=== PATIENT | female | born 1985 | race Caucasian/White ===

== ENCOUNTER → 2016-12-13 | Outpatient (CLI) | payer OTHER ==
[~2016-12-13] MED LIST: ACET325T14 PO; AMOX1TAB64 PO; BUTA1CAP57 PO; DEXA4TAB PO; DOCU-30 PO; DULO60CA7 PO; FAMO20TA37 PO; IBUP-1222 PO; INDO25CA PO; MEMA10TA PO; OXYC-302 PO; OXYC1TAB7 PO; OXYC1TAB9 PO; PARO10TA24 PO; PRED20TA PO; PRED5TAB PO; SERT50TA; TEMA15CA6 PO
== END | disposition home or self-care (01) ==
LOC: LAB 16:32
PROVIDERS: ATTEND Internal Medicine Infectious Disease
DX: R70.0 Elevated erythrocyte sedimentation rate (principal)
CPT/HCPCS: 87324

== ENCOUNTER 2017-02-12 19:08 | Inpatient (IN) | payer OTHER ==
[~2017-02-12] VITALS: Ht 180.3 cm; Wt 63.5 kg
[2017-02-12 19:47] LABS: BLOOD UREA NITROGEN 8 mg/dL (7-18)
[2017-02-12] MEDS ORDERED: CEFTRIAXONE PMX 1GM/50ML 50 ML IVPB ONE (20:30)
[2017-02-12] MEDS ORDERED: HYDROmorphone 1 MG/ML, 1ML IVPush PRN (20:30)
[2017-02-12] MEDS ORDERED: ONDANSETRON 2MG/ML, 2ML IVPush ONE (20:30)
[2017-02-12] MEDS ORDERED: SODIUM CHLORIDE FLUSH 10ML SYR IVF ONE (20:30)
[2017-02-12] MEDS ORDERED: CEFTRIAXONE PMX 1GM/50ML 50 ML ONE (20:49)
[2017-02-12] MEDS ORDERED: ONDANSETRON 2MG/ML, 2ML ONE (20:50)
[2017-02-12] MEDS ORDERED: HYDROmorphone 1 MG/ML, 1ML ONE (20:50)
[2017-02-12] MEDS ORDERED: SODIUM CHLORIDE FLUSH 10ML SYR IVF PRN (21:00)
[2017-02-12] MEDS: HEPARIN 5,000 UNITS/ML, 1ML SQ SCH (21:30)
[2017-02-12] MEDS ORDERED: BISACODYL 10 MG SUPP PR PRN (21:30)
[2017-02-12] MEDS ORDERED: POLYETHYLENE GLYCOL 17 GM PACKET PO PRN (21:30)
[2017-02-12] MEDS ORDERED: CEFTRIAXONE PMX 1GM/50ML 50 ML IV SCH (21:30)
[2017-02-12] MEDS ORDERED: CEFTRIAXONE 2 GM in SODIUM CHLORIDE 0.9% 50 ML IV SCH (21:30)
[2017-02-12] MEDS ORDERED: ONDANSETRON 2MG/ML, 2ML IVPush PRN (21:30)
[2017-02-12] MEDS ORDERED: HYDROmorphone 2 MG/ML, 1ML IVPush PRN (21:30)
[2017-02-12] MEDS: BUTALB/APAP/CAFFEINE 50MG/325MG/40MG PO SCH (21:30)
[2017-02-12] MEDS ORDERED: ACETAMINOPHEN 325 MG TABLET PO PRN (21:30)
[2017-02-12 22:00] VITALS: BP 122/81
[2017-02-12] MEDS ORDERED: [UNRECOGNIZED DRUG - OTHER] NAS SCH (22:00)
[2017-02-12] MEDS: [UNRECOGNIZED DRUG - OTHER] NAS SCH (22:30)
[2017-02-12] MEDS: HYDROmorphone 2 MG/ML, 1ML IVPush PRN (23:25)
[2017-02-13] MEDS ORDERED: CEFTRIAXONE 2 GM in SODIUM CHLORIDE 0.9% 50 ML IV SCH
[2017-02-13] MEDS ORDERED: CEFTRIAXONE PMX 1GM/50ML 50 ML IV ONE
[2017-02-13] MEDS: TEMAZEPAM 15 MG CAPSULE PO PRN ×2 (00:27→22:57)
[2017-02-13] MEDS: METRONIDAZOLE PMX 500MG/100ML 100 ML IV SCH ×2 (00:27→08:42)
[2017-02-13] MEDS: SODIUM CHLORIDE FLUSH 3ML SYRINGE IVF SCH ×3 (00:28→20:57)
[2017-02-13] MEDS: FAMOTIDINE 20 MG TABLET PO SCH ×2 (00:29→20:44)
[2017-02-13] MEDS: methylPREDNISolone SOD SUCC 40 MG/ML IVPush SCH ×2 (00:29→05:34)
[2017-02-13] MEDS: BUTALB/APAP/CAFFEINE 50MG/325MG/40MG PO SCH ×6 (01:30→20:56)
[2017-02-13] MEDS: HEPARIN 5,000 UNITS/ML, 1ML SQ SCH (01:43)
[2017-02-13 01:54] VITALS: BP 115/64
[2017-02-13] MEDS: HYDROmorphone 2 MG/ML, 1ML IVPush PRN ×8 (02:44→21:55)
[2017-02-13 04:54] LABS: ASPARTATE AMINO TRANSFERASE 10 U/L (15-37); BLOOD UREA NITROGEN 10 mg/dL (7-18)
[2017-02-13 08:36] VITALS: BP 95/54
[2017-02-13] MEDS: DULOXETINE 30 MG CAPSULE.DR PO SCH (08:41)
[2017-02-13] MEDS: SENNA/DOCUSATE TABLET PO SCH (08:42)
[2017-02-13] MEDS: [UNRECOGNIZED DRUG - OTHER] NAS SCH ×2 (09:00→20:56)
[2017-02-13] MEDS: KETOROLAC 30 MG/1 ML IVPush SCH ×3 (09:58→21:56)
[2017-02-13] MEDS: DEXAMETHASONE 4 MG/ML, 1ML IVPush SCH ×3 (10:15→21:56)
[2017-02-13] MEDS: SODIUM CHLORIDE 0.9% 1,000 ML IV SCH ×2 (10:15→15:59)
[2017-02-13] MEDS: ENOXAPARIN 40 MG/0.4 ML SQ SCH ×3 (11:52→16:17)
[2017-02-13 13:42] VITALS: BP 93/44
[2017-02-13] MEDS: ONDANSETRON 2MG/ML, 2ML IVPush PRN ×2 (15:21→20:44)
[2017-02-13] MEDS ORDERED: METOCLOPRAMIDE 5 MG/ML, 2ML IVPush PRN (15:30)
[2017-02-13] MEDS: DAPTOMYCIN 500 MG in SODIUM CHLORIDE 0.9% 100 ML IV SCH (15:59)
[2017-02-13] MEDS: OXYcodone/APAP 5/325MG TABLET PO PRN ×2 (16:17→20:44)
[2017-02-13] MEDS: MEMANTINE 10MG TABLET PO PRN (21:56)
[2017-02-13 22:04] VITALS: BP 108/64
[2017-02-14] MEDS: BUTALB/APAP/CAFFEINE 50MG/325MG/40MG PO SCH ×6 (00:51→21:30)
[2017-02-14] MEDS: HYDROmorphone 2 MG/ML, 1ML IVPush PRN ×6 (00:59→21:05)
[2017-02-14] MEDS: SODIUM CHLORIDE 0.9% 1,000 ML IV SCH ×3 (00:59→17:05)
[2017-02-14 01:45] VITALS: BP 108/67
[2017-02-14] MEDS: ONDANSETRON 2MG/ML, 2ML IVPush PRN ×4 (01:53→21:09)
[2017-02-14] MEDS: DEXAMETHASONE 4 MG/ML, 1ML IVPush SCH ×4 (04:04→22:07)
[2017-02-14] MEDS: KETOROLAC 30 MG/1 ML IVPush SCH ×4 (04:05→22:07)
[2017-02-14 04:42] LABS: BLOOD UREA NITROGEN 7 mg/dL (7-18)
[2017-02-14 04:45] LABS: ASPARTATE AMINO TRANSFERASE 4 U/L (15-37)
[2017-02-14 06:50] VITALS: BP 104/60
[2017-02-14] MEDS: OXYcodone/APAP 5/325MG TABLET PO PRN ×2 (08:36→13:32)
[2017-02-14] MEDS: [UNRECOGNIZED DRUG - OTHER] NAS SCH ×2 (09:00→21:00)
[2017-02-14] MEDS: SENNA/DOCUSATE TABLET PO SCH (09:14)
[2017-02-14] MEDS: DULOXETINE 30 MG CAPSULE.DR PO SCH (09:15)
[2017-02-14] MEDS: SODIUM CHLORIDE FLUSH 3ML SYRINGE IVF SCH ×2 (09:15→21:00)
[2017-02-14 14:29] VITALS: BP 111/71
[2017-02-14] MEDS: DAPTOMYCIN 500 MG in SODIUM CHLORIDE 0.9% 100 ML IV SCH (16:03)
[2017-02-14] MEDS: ENOXAPARIN 40 MG/0.4 ML SQ SCH (17:05)
[2017-02-14] MEDS ORDERED: LORazepam 2 MG/ML, 1ML IVPush ONE ×2 (18:00→18:30)
[2017-02-14] MEDS ORDERED: GADOBUTROL 7.5 MMOL/7.5 ML PFS ONE (18:34)
[2017-02-14 19:54] VITALS: BP 113/72
[2017-02-14] MEDS: FAMOTIDINE 20 MG TABLET PO SCH (21:11)
[2017-02-14] MEDS: TEMAZEPAM 15 MG CAPSULE PO PRN (22:07)
[2017-02-15 00:55] VITALS: BP 115/66
[2017-02-15] MEDS: HYDROmorphone 2 MG/ML, 1ML IVPush PRN ×8 (01:17→23:30)
[2017-02-15] MEDS: ONDANSETRON 2MG/ML, 2ML IVPush PRN ×4 (01:17→23:30)
[2017-02-15] MEDS: BUTALB/APAP/CAFFEINE 50MG/325MG/40MG PO SCH ×6 (01:30→21:30)
[2017-02-15] MEDS ORDERED: HYDROmorphone 1 MG/ML, 1ML ONE (04:43)
[2017-02-15] MEDS: DEXAMETHASONE 4 MG/ML, 1ML IVPush SCH ×3 (04:44→17:16)
[2017-02-15] MEDS: KETOROLAC 30 MG/1 ML IVPush SCH ×4 (04:44→23:30)
[2017-02-15] MEDS: SODIUM CHLORIDE 0.9% 1,000 ML IV SCH ×3 (04:55→20:40)
[2017-02-15 05:33] LABS: BLOOD UREA NITROGEN 5 mg/dL (7-18)
[2017-02-15] MEDS: [UNRECOGNIZED DRUG - OTHER] NAS SCH ×2 (07:54→20:43)
[2017-02-15] MEDS: SODIUM CHLORIDE FLUSH 3ML SYRINGE IVF SCH ×2 (07:55→20:40)
[2017-02-15] MEDS: DULOXETINE 30 MG CAPSULE.DR PO SCH (07:55)
[2017-02-15] MEDS: SENNA/DOCUSATE TABLET PO SCH (07:55)
[2017-02-15 08:05] VITALS: BP 109/75
[2017-02-15] MEDS: PYRIDOSTIGMINE 60 MG TABLET PO SCH ×2 (10:15→17:17)
[2017-02-15] MEDS: OXYcodone/APAP 5/325MG TABLET PO PRN (10:15)
[2017-02-15] MEDS ORDERED: LORazepam 2 MG/ML, 1ML IVPush ONE (14:00)
[2017-02-15] MEDS: DAPTOMYCIN 500 MG in SODIUM CHLORIDE 0.9% 100 ML IV SCH (14:20)
[2017-02-15 14:30] VITALS: BP 113/70
[2017-02-15] MEDS: ENOXAPARIN 40 MG/0.4 ML SQ SCH (17:31)
[2017-02-15 19:53] VITALS: BP 122/73
[2017-02-15] MEDS: FAMOTIDINE 20 MG TABLET PO SCH (23:30)
[2017-02-16 00:48] VITALS: BP 110/64
[2017-02-16] MEDS: DEXAMETHASONE 4 MG/ML, 1ML IVPush SCH ×3 (00:52→15:38)
[2017-02-16] MEDS: LORazepam 2 MG/ML, 1ML IVPush PRN ×3 (00:52→23:56)
[2017-02-16] MEDS: PYRIDOSTIGMINE 60 MG TABLET PO SCH ×4 (00:52→20:04)
[2017-02-16] MEDS: BUTALB/APAP/CAFFEINE 50MG/325MG/40MG PO SCH ×6 (01:30→20:06)
[2017-02-16] MEDS: SODIUM CHLORIDE 0.9% 1,000 ML IV SCH ×4 (02:00→21:33)
[2017-02-16] MEDS ORDERED: HYDROmorphone 1 MG/ML, 1ML ONE (04:18)
[2017-02-16] MEDS: HYDROmorphone 2 MG/ML, 1ML IVPush PRN ×6 (04:43→22:48)
[2017-02-16 05:12] LABS: BLOOD UREA NITROGEN 4 mg/dL (7-18)
[2017-02-16] MEDS: KETOROLAC 30 MG/1 ML IVPush SCH (05:30)
[2017-02-16 07:55] VITALS: BP 118/72
[2017-02-16] MEDS: SODIUM CHLORIDE FLUSH 3ML SYRINGE IVF SCH ×2 (09:00→20:05)
[2017-02-16] MEDS: SENNA/DOCUSATE TABLET PO SCH (09:22)
[2017-02-16] MEDS: DULOXETINE 30 MG CAPSULE.DR PO SCH (09:22)
[2017-02-16] MEDS: [UNRECOGNIZED DRUG - OTHER] NAS SCH ×2 (09:23→20:05)
[2017-02-16] MEDS ORDERED: FLUCONAZOLE 100 MG TABLET PO ONE (10:30)
[2017-02-16 13:45] VITALS: BP 108/66
[2017-02-16] MEDS: DAPTOMYCIN 500 MG in SODIUM CHLORIDE 0.9% 100 ML IV SCH (15:38)
[2017-02-16] MEDS: ENOXAPARIN 40 MG/0.4 ML SQ SCH (15:39)
[2017-02-16] MEDS: ONDANSETRON 2MG/ML, 2ML IVPush PRN ×2 (16:50→22:48)
[2017-02-16 18:47] VITALS: BP 131/79
[2017-02-16] MEDS: FAMOTIDINE 20 MG TABLET PO SCH (20:04)
[2017-02-17 00:06] LABS: ABSOLUTE CD 4 HELPER 717 /uL (359-1519); HEMOGLOBIN 9.4 g/dL (11.1-15.9); IMMATURE GRANULOCYTES 0 % (.); MCHC 32.4 g/dL (31.5-35.7); MCV 90 fL (79-97); MONOCYTES 7 % (.); NEUTROPHILS 73 % (.); PLATELETS 274 x10E3/uL (150-379); RBC 3.24 x10E6/uL (3.77-5.28); RDW 15.2 % (12.3-15.4); WBC 8.3 x10E3/uL (3.4-10.8)
[2017-02-17] MEDS: BUTALB/APAP/CAFFEINE 50MG/325MG/40MG PO SCH ×3 (01:06→09:03)
[2017-02-17 02:11] VITALS: BP 116/64
[2017-02-17] MEDS: HYDROmorphone 2 MG/ML, 1ML IVPush PRN ×7 (02:19→21:59)
[2017-02-17] MEDS: ONDANSETRON 2MG/ML, 2ML IVPush PRN ×4 (04:59→21:59)
[2017-02-17] MEDS: SODIUM CHLORIDE 0.9% 1,000 ML IV SCH (04:59)
[2017-02-17] MEDS: DEXAMETHASONE 4 MG/ML, 1ML IVPush SCH ×4 (04:59→15:54)
[2017-02-17 05:11] LABS: BLOOD UREA NITROGEN 5 mg/dL (7-18)
[2017-02-17 07:51] VITALS: BP 125/72
[2017-02-17] MEDS: SODIUM CHLORIDE FLUSH 3ML SYRINGE IVF SCH ×2 (09:00→21:00)
[2017-02-17] MEDS: SENNA/DOCUSATE TABLET PO SCH (09:02)
[2017-02-17] MEDS: DULOXETINE 30 MG CAPSULE.DR PO SCH (09:02)
[2017-02-17] MEDS: PYRIDOSTIGMINE 60 MG TABLET PO SCH ×3 (09:03→21:05)
[2017-02-17] MEDS: [UNRECOGNIZED DRUG - OTHER] NAS SCH ×2 (09:05→21:08)
[2017-02-17] MEDS: LORazepam 2 MG/ML, 1ML IVPush PRN ×2 (12:53→21:05)
[2017-02-17] MEDS ORDERED: BUTALB/APAP/CAFFEINE 50MG/325MG/40MG PO PRN (13:30)
[2017-02-17 13:35] VITALS: BP 120/71
[2017-02-17] MEDS: ENOXAPARIN 40 MG/0.4 ML SQ SCH (15:53)
[2017-02-17] MEDS: DAPTOMYCIN 500 MG in SODIUM CHLORIDE 0.9% 100 ML IV SCH (17:13)
[2017-02-17] MEDS: KETOROLAC 30 MG/1 ML IVPush SCH (19:02)
[2017-02-17 19:50] VITALS: BP 129/80
[2017-02-17] MEDS: FAMOTIDINE 20 MG TABLET PO SCH (21:05)
[2017-02-17] MEDS: MEMANTINE 10MG TABLET PO PRN (21:59)
[2017-02-18] MEDS: TEMAZEPAM 15 MG CAPSULE PO PRN ×2 (00:17→21:26)
[2017-02-18] MEDS: HYDROmorphone 2 MG/ML, 1ML IVPush PRN ×8 (00:56→21:26)
[2017-02-18] MEDS: KETOROLAC 30 MG/1 ML IVPush SCH ×4 (00:56→19:23)
[2017-02-18] MEDS ORDERED: HYDROmorphone 1 MG/ML, 1ML ONE ×3 (03:54→10:23)
[2017-02-18] MEDS: ONDANSETRON 2MG/ML, 2ML IVPush PRN ×4 (04:11→19:40)
[2017-02-18] MEDS: DEXAMETHASONE 4 MG/ML, 1ML IVPush SCH (04:12)
[2017-02-18 04:42] VITALS: BP 122/77
[2017-02-18 04:43] LABS: BLOOD UREA NITROGEN 4 mg/dL (7-18)
[2017-02-18 04:47] LABS: ASPARTATE AMINO TRANSFERASE 16 U/L (15-37)
[2017-02-18 04:48] LABS: C-REACTIVE PROTEIN, QUANT < 0.02 mg/dL (0.02-0.49)
[2017-02-18 08:00] VITALS: BP 115/72
[2017-02-18] MEDS: SODIUM CHLORIDE FLUSH 3ML SYRINGE IVF SCH ×2 (09:00→20:08)
[2017-02-18] MEDS: LORazepam 2 MG/ML, 1ML IVPush PRN ×2 (09:08→15:23)
[2017-02-18] MEDS: [UNRECOGNIZED DRUG - OTHER] NAS SCH (09:09)
[2017-02-18] MEDS: DULOXETINE 30 MG CAPSULE.DR PO SCH (10:20)
[2017-02-18] MEDS: PYRIDOSTIGMINE 60 MG TABLET PO SCH ×3 (10:20→20:08)
[2017-02-18] MEDS: SENNA/DOCUSATE TABLET PO SCH (10:20)
[2017-02-18] MEDS: DAPTOMYCIN 500 MG in SODIUM CHLORIDE 0.9% 100 ML IV SCH (13:00)
[2017-02-18 14:00] VITALS: BP 117/74
[2017-02-18] MEDS: ENOXAPARIN 40 MG/0.4 ML SQ SCH (16:06)
[2017-02-18] MEDS ORDERED: DEXAMETHASONE 4 MG TABLET PO SCH ×2 (17:00)
[2017-02-18 19:48] VITALS: BP 131/87
[2017-02-18] MEDS: OXYcodone/APAP 5/325MG TABLET PO PRN (20:07)
[2017-02-18] MEDS: MEMANTINE 10MG TABLET PO PRN (20:08)
[2017-02-18] MEDS: FAMOTIDINE 20 MG TABLET PO SCH (20:08)
[2017-02-19] MEDS: KETOROLAC 30 MG/1 ML IVPush SCH ×3 (00:53→12:47)
[2017-02-19] MEDS: HYDROmorphone 2 MG/ML, 1ML IVPush PRN ×4 (00:53→12:46)
[2017-02-19] MEDS: ONDANSETRON 2MG/ML, 2ML IVPush PRN ×2 (00:53→06:34)
[2017-02-19 01:01] VITALS: BP 124/78
[2017-02-19] MEDS: LORazepam 2 MG/ML, 1ML IVPush PRN ×2 (02:46→10:16)
[2017-02-19 06:40] VITALS: BP 115/70
[2017-02-19] MEDS ORDERED: DEXAMETHASONE 4 MG TABLET PO SCH (07:30)
[2017-02-19] MEDS: DULOXETINE 30 MG CAPSULE.DR PO SCH (08:07)
[2017-02-19] MEDS: SODIUM CHLORIDE FLUSH 3ML SYRINGE IVF SCH (08:08)
[2017-02-19] MEDS: SENNA/DOCUSATE TABLET PO SCH (08:08)
[2017-02-19] MEDS: PYRIDOSTIGMINE 60 MG TABLET PO SCH (08:08)
[2017-02-19] MEDS ORDERED: DAPT500V6 IV (08:23)
[2017-02-19] MEDS ORDERED: DEXA4TAB PO (08:23)
[2017-02-19] MEDS ORDERED: PYRI60TA2 PO (08:23)
[2017-02-19] MEDS ORDERED: LORA-446 PO (08:23)
[2017-02-19] MEDS: OXYcodone/APAP 5/325MG TABLET PO PRN (10:16)
[2017-02-19] MEDS: DAPTOMYCIN 500 MG in SODIUM CHLORIDE 0.9% 100 ML IV SCH (11:13)
== END 2017-02-19 12:53 | disposition home or self-care (01) | DRG 153 ==
LOC: ED 20:50 → EDIP 20:53 → ED 21:03 → 3NW 22:39
PROVIDERS: ATTEND Internal Medicine
PROC: 02HV33Z Insertion of Infusion Device into Superior Vena Cava, Percutaneous Approach (ICD-10-PCS; principal; 2017-02-14)
PROC: B548ZZA Ultrasonography of Superior Vena Cava, Guidance (ICD-10-PCS; 2017-02-14)
DX: J01.81 Other acute recurrent sinusitis (principal); G43.909 Migraine, unspecified, not intractable, without status migrainosus; D64.9 Anemia, unspecified; H02.402 Unspecified ptosis of left eyelid; D63.8 Anemia in other chronic diseases classified elsewhere; G70.00 Myasthenia gravis without (acute) exacerbation; B95.7 Other staphylococcus as the cause of diseases classified elsewhere; J32.8 Other chronic sinusitis; H49.02 Third [oculomotor] nerve palsy, left eye; Z79.52 Long term (current) use of systemic steroids; Z88.1 Allergy status to other antibiotic agents
CPT/HCPCS: 36415; 36569; 70450; 70543; 70553; 76937; 77001; 80048; 80053; 82040; 82550; 83519; 83605; 85025; 85651; 86140; 86361; 87040; 96365; 96375; A9585; J0696; J0878; J1100; J1170; J1650; J1885; J2405; C1751; J2060; J2920; J7030

== ENCOUNTER 2017-07-03 18:03 | Emergency (ER) | payer OTHER ==
[~2017-07-03] VITALS: Ht 180.3 cm; Wt 62.4 kg
[~2017-07-03 18:03] MED LIST changes: +DAPT500V6 IV; +DOCU-131 PO; -DOCU-30 PO; +DOXY100T PO; +HYDR10TA4 PO; +HYDR2TAB29 PO; +LORA-446 PO; +METR500T PO; +ONDA4TAB10 PO; -PARO10TA24 PO; +PARO10TA56 PO; +PRED10TA PO; +PYRI60TA2 PO
[2017-07-03] MEDS ORDERED: SODIUM CHLORIDE FLUSH 10ML SYR IVF ONE (18:30)
[2017-07-03] MEDS ORDERED: ONDANSETRON 2MG/ML, 2ML IVPush ONE (18:30)
[2017-07-03] MEDS ORDERED: ASPIRIN 81 MG TABLET CHEW PO ONE (18:30)
[2017-07-03] MEDS ORDERED: SODIUM CHLORIDE 0.9% 1,000ML IVBOLUS ONE (18:30)
[2017-07-03 18:44] LABS: HEMATOCRIT 36.3 % (34.6-47.8); HEMOGLOBIN 12.1 g/dL (11.7-16.4); WHITE BLOOD COUNT 8.4 x10^3/uL (3.4-10)
[2017-07-03 18:53] LABS: BLOOD UREA NITROGEN 10 mg/dL (7-18)
[2017-07-03] MEDS ORDERED: ASPIRIN 81 MG TABLET CHEW ONE (18:56)
[2017-07-03] MEDS ORDERED: ONDANSETRON 2MG/ML, 2ML ONE (18:56)
[2017-07-03 18:58] LABS: IS PT STATUS REG ER OR PRE ER? YES
[2017-07-03] MEDS ORDERED: PROCHLORPERAZINE 5 MG/ML, 2ML ONE (19:23)
[2017-07-03] MEDS ORDERED: PROCHLORPERAZINE 5 MG/ML, 2ML IVPush ONE (19:30)
[2017-07-03 20:38] VITALS: BP 126/73
== END 2017-07-03 20:40 | disposition home or self-care (01) ==
LOC: ED 18:42
DX: R42 Dizziness and giddiness (principal); R11.0 Nausea
CPT/HCPCS: 36415; 71010; 80048; 82040; 83880; 84436; 84443; 84481; 84484; 84703; 85025; 85610; 93005; 96361; 96374; 99285; J0780; J7030

== ENCOUNTER 2017-08-18 20:16 | Inpatient (IN) | payer OTHER ==
[~2017-08-18] VITALS: Ht 180.3 cm; Wt 60.2 kg
[2017-08-18 21:30] LABS: HEMOGLOBIN 11.7 g/dL (11.7-16.4); WHITE BLOOD COUNT 4.5 x10^3/uL (3.4-10)
[2017-08-18 21:42] LABS: BLOOD UREA NITROGEN 7 mg/dL (7-18)
[2017-08-18] MEDS ORDERED: methylPREDNISolone SOD SUCC 125 MG/2 ML IVPush STA (22:12)
[2017-08-18] MEDS ORDERED: METRONIDAZOLE PMX 500MG/100ML 100 ML ONE (22:19)
[2017-08-18] MEDS ORDERED: ONDANSETRON 2MG/ML, 2ML ONE (22:20)
[2017-08-18] MEDS ORDERED: methylPREDNISolone SOD SUCC 125 MG/2 ML ONE (22:20)
[2017-08-18] MEDS ORDERED: morphine SULFATE 10 MG/ML, 1ML ONE (22:20)
[2017-08-18] MEDS ORDERED: METRONIDAZOLE PMX 500MG/100ML 100 ML IV ONE (22:30)
[2017-08-18] MEDS ORDERED: morphine SULFATE 10 MG/ML, 1ML IVPush PRN ×2 (22:30→23:00)
[2017-08-18] MEDS ORDERED: CEFTAROLINE 600 MG in SODIUM CHLORIDE 0.9% 100 ML IV ONE (22:30)
[2017-08-18] MEDS ORDERED: SODIUM CHLORIDE 0.9% 1,000 ML IV ONE (22:32)
[2017-08-18] MEDS ORDERED: HYDROmorphone 2 MG/ML, 1ML IVPush STA (22:41)
[2017-08-18] MEDS ORDERED: HYDROmorphone 1 MG/ML, 1ML ONE (22:53)
[2017-08-18] MEDS ORDERED: CEFTAROLINE 600 MG in SODIUM CHLORIDE 0.9% 250 ML IV ONE (23:00)
[2017-08-18] MEDS ORDERED: ONDANSETRON 2MG/ML, 2ML IVPush PRN (23:00)
[2017-08-18] MEDS ORDERED: hydrALAzine 20 MG/ML, 1ML IVPush PRN (23:30)
[2017-08-19] MEDS: HYDROmorphone 2 MG/ML, 1ML IVPush PRN ×8 (00:04→23:03)
[2017-08-19] MEDS: ENOXAPARIN 40 MG/0.4 ML SQ SCH ×2 (00:20→23:53)
[2017-08-19] MEDS: SODIUM CHLORIDE 0.9% 1,000 ML IV SCH ×2 (00:20→21:29)
[2017-08-19 01:24] VITALS: BP 96/59
[2017-08-19] MEDS: LORazepam 2 MG/ML, 1ML IVPush PRN ×2 (01:24→10:41)
[2017-08-19] MEDS: DEXAMETHASONE 4 MG/ML, 1ML IVPush SCH ×4 (01:52→20:06)
[2017-08-19] MEDS ORDERED: PROMETHAZINE 25 MG/ML, 1ML IM ONE (04:00)
[2017-08-19] MEDS ORDERED: PROMETHAZINE 25 MG/ML, 1ML ONE (04:20)
[2017-08-19 04:25] LABS: HEMATOCRIT 33.3 % (34.6-47.8); HEMOGLOBIN 11.1 g/dL (11.7-16.4); WHITE BLOOD COUNT 7.9 x10^3/uL (3.4-10)
[2017-08-19 04:31] LABS: BLOOD UREA NITROGEN 6 mg/dL (7-18)
[2017-08-19 05:03] VITALS: BP 101/60
[2017-08-19] MEDS: METRONIDAZOLE PMX 500MG/100ML 100 ML IV SCH ×2 (05:03→11:43)
[2017-08-19] MEDS: ONDANSETRON 2MG/ML, 2ML IVPush PRN ×3 (05:48→20:05)
[2017-08-19] MEDS: KETOROLAC 30 MG/1 ML IVPush SCH ×2 (07:53→14:00)
[2017-08-19] MEDS: PANTOPRAZOLE 40 MG IV IVPush SCH (07:53)
[2017-08-19] MEDS: DULOXETINE 30 MG CAPSULE.DR PO SCH (07:54)
[2017-08-19 08:18] VITALS: BP 119/74
[2017-08-19] MEDS: PYRIDOSTIGMINE 60 MG TABLET PO SCH ×3 (10:44→21:25)
[2017-08-19] MEDS ORDERED: CEFTAROLINE 600 MG in SODIUM CHLORIDE 0.9% 100 ML IV SCH (12:00)
[2017-08-19 12:30] VITALS: BP 124/75
[2017-08-19] MEDS: CEFTAROLINE 600 MG in SODIUM CHLORIDE 0.9% 250 ML IV SCH ×2 (14:19→23:54)
[2017-08-19] MEDS: DIPHENHYDRAMINE 50 MG/ML, 1ML IVPush PRN ×2 (14:20→23:51)
[2017-08-19] MEDS: KETOROLAC 30 MG/1 ML IVPush PRN ×2 (14:48→21:25)
[2017-08-19] MEDS ORDERED: TEMAZEPAM 15 MG CAPSULE PO PRN ×2 (17:00)
[2017-08-19 19:44] VITALS: BP 120/73
[2017-08-19] MEDS ORDERED: KETOROLAC 30 MG/1 ML IVPush PRN (20:00)
[2017-08-19 20:26] LABS: HCG UR LOT HCG7030192
[2017-08-19 20:34] LABS: HCG UR OBC PASS
[2017-08-19] MEDS ORDERED: PROMETHAZINE 25 MG/ML, 1ML IM PRN (21:30)
[2017-08-19] MEDS: SENNA/DOCUSATE TABLET PO SCH (21:32)
[2017-08-20 00:48] VITALS: BP 102/63
[2017-08-20] MEDS: DEXAMETHASONE 4 MG/ML, 1ML IVPush SCH ×4 (02:04→20:38)
[2017-08-20] MEDS: ONDANSETRON 2MG/ML, 2ML IVPush PRN ×3 (02:06→20:25)
[2017-08-20] MEDS: HYDROmorphone 2 MG/ML, 1ML IVPush PRN ×7 (02:07→23:35)
[2017-08-20] MEDS: KETOROLAC 30 MG/1 ML IVPush PRN ×4 (02:21→20:43)
[2017-08-20] MEDS: LORazepam 2 MG/ML, 1ML IVPush PRN ×2 (03:33→15:22)
[2017-08-20 04:22] LABS: HEMOGLOBIN 10.3 g/dL (11.7-16.4); WHITE BLOOD COUNT 9.2 x10^3/uL (3.4-10)
[2017-08-20 04:32] LABS: BLOOD UREA NITROGEN 7 mg/dL (7-18)
[2017-08-20] MEDS: DIPHENHYDRAMINE 50 MG/ML, 1ML IVPush PRN ×2 (07:45→23:33)
[2017-08-20] MEDS: PANTOPRAZOLE 40 MG IV IVPush SCH (07:45)
[2017-08-20 08:57] VITALS: BP 118/74
[2017-08-20] MEDS: OXCARBAZEPINE 150 MG TABLET PO SCH (09:13)
[2017-08-20] MEDS: SENNA/DOCUSATE TABLET PO SCH ×2 (09:14→20:39)
[2017-08-20] MEDS: PYRIDOSTIGMINE 60 MG TABLET PO SCH ×3 (09:15→20:39)
[2017-08-20] MEDS: DULOXETINE 30 MG CAPSULE.DR PO SCH (09:15)
[2017-08-20] MEDS ORDERED: DIPHENHYDRAMINE 50 MG/ML, 1ML IVPush ONE (12:30)
[2017-08-20] MEDS: SODIUM CHLORIDE 0.9% 1,000 ML IV SCH (12:44)
[2017-08-20] MEDS: CEFTAROLINE 600 MG in SODIUM CHLORIDE 0.9% 250 ML IV SCH ×2 (12:52→23:41)
[2017-08-20 15:07] VITALS: BP 118/68
[2017-08-20 19:48] VITALS: BP 114/70
[2017-08-20] MEDS: ENOXAPARIN 40 MG/0.4 ML SQ SCH (20:43)
[2017-08-21 02:16] VITALS: BP 107/50
[2017-08-21] MEDS: DEXAMETHASONE 4 MG/ML, 1ML IVPush SCH ×3 (02:18→14:17)
[2017-08-21] MEDS: ONDANSETRON 2MG/ML, 2ML IVPush PRN ×4 (02:18→22:22)
[2017-08-21] MEDS: HYDROmorphone 2 MG/ML, 1ML IVPush PRN ×7 (02:26→20:48)
[2017-08-21] MEDS: KETOROLAC 30 MG/1 ML IVPush PRN ×3 (02:26→19:41)
[2017-08-21] MEDS: LORazepam 2 MG/ML, 1ML IVPush PRN ×5 (03:25→23:39)
[2017-08-21] MEDS: DIPHENHYDRAMINE 50 MG/ML, 1ML IVPush PRN ×3 (05:39→20:48)
[2017-08-21 07:05] VITALS: BP 122/70
[2017-08-21] MEDS: PYRIDOSTIGMINE 60 MG TABLET PO SCH ×3 (08:32→20:48)
[2017-08-21] MEDS: PANTOPRAZOLE 40 MG IV IVPush SCH (08:42)
[2017-08-21] MEDS: SENNA/DOCUSATE TABLET PO SCH ×2 (08:42→20:47)
[2017-08-21] MEDS: DULOXETINE 30 MG CAPSULE.DR PO SCH (08:42)
[2017-08-21] MEDS: SODIUM CHLORIDE 0.9% 1,000 ML IV SCH (08:42)
[2017-08-21] MEDS: OXCARBAZEPINE 150 MG TABLET PO SCH (08:42)
[2017-08-21] MEDS: CEFTAROLINE 600 MG in SODIUM CHLORIDE 0.9% 250 ML IV SCH (12:00)
[2017-08-21 13:51] VITALS: BP 129/76
[2017-08-21] MEDS ORDERED: LORazepam 2 MG/ML, 1ML IVPush ONE (16:00)
[2017-08-21 20:50] VITALS: BP 131/80
[2017-08-21] MEDS: ENOXAPARIN 40 MG/0.4 ML SQ SCH (20:57)
[2017-08-22] MEDS: HYDROmorphone 2 MG/ML, 1ML IVPush PRN ×5 (00:10→21:24)
[2017-08-22] MEDS: SODIUM CHLORIDE 0.9% 1,000 ML IV SCH ×2 (00:10→13:44)
[2017-08-22] MEDS: KETOROLAC 30 MG/1 ML IVPush PRN ×4 (02:16→23:10)
[2017-08-22 02:19] VITALS: BP 127/86
[2017-08-22] MEDS: DIPHENHYDRAMINE 50 MG/ML, 1ML IVPush PRN ×2 (02:59→10:40)
[2017-08-22] MEDS: LORazepam 2 MG/ML, 1ML IVPush PRN ×5 (04:43→23:10)
[2017-08-22] MEDS: ONDANSETRON 2MG/ML, 2ML IVPush PRN ×3 (04:48→21:31)
[2017-08-22 07:38] VITALS: BP 137/82
[2017-08-22] MEDS: PYRIDOSTIGMINE 60 MG TABLET PO SCH ×3 (08:13→21:00)
[2017-08-22] MEDS: SENNA/DOCUSATE TABLET PO SCH ×2 (08:13→21:16)
[2017-08-22] MEDS: PANTOPRAZOLE 40 MG IV IVPush SCH (08:13)
[2017-08-22] MEDS: DULOXETINE 30 MG CAPSULE.DR PO SCH (08:13)
[2017-08-22] MEDS: OXCARBAZEPINE 150 MG TABLET PO SCH (08:14)
[2017-08-22] MEDS: OXYcodone/APAP 5/325MG TABLET PO PRN (12:27)
[2017-08-22 15:09] VITALS: BP 129/77
[2017-08-22 19:28] VITALS: BP 124/76
[2017-08-22] MEDS: ENOXAPARIN 40 MG/0.4 ML SQ SCH (21:17)
[2017-08-23 04:47] VITALS: BP 117/74
[2017-08-23] MEDS: OXYcodone/APAP 5/325MG TABLET PO PRN ×2 (04:55→09:09)
[2017-08-23] MEDS: SODIUM CHLORIDE 0.9% 1,000 ML IV SCH (04:55)
[2017-08-23] MEDS: ONDANSETRON 2MG/ML, 2ML IVPush PRN ×2 (04:55→11:46)
[2017-08-23] MEDS: LORazepam 2 MG/ML, 1ML IVPush PRN ×2 (05:01→09:11)
[2017-08-23 07:05] VITALS: BP 115/70
[2017-08-23] MEDS: DULOXETINE 30 MG CAPSULE.DR PO SCH (09:09)
[2017-08-23] MEDS: PANTOPRAZOLE 40 MG IV IVPush SCH (09:09)
[2017-08-23] MEDS: PYRIDOSTIGMINE 60 MG TABLET PO SCH (09:10)
[2017-08-23] MEDS: SENNA/DOCUSATE TABLET PO SCH (09:10)
[2017-08-23] MEDS: OXCARBAZEPINE 150 MG TABLET PO SCH (09:11)
[2017-08-23] MEDS ORDERED: PRED20TA PO (11:31)
[2017-08-23] MEDS: KETOROLAC 30 MG/1 ML IVPush PRN (11:46)
[2017-08-24] MEDS ORDERED: PANTOPROZOLE 40MG TABLET PO SCH (07:30)
[2017-08-24 21:06] LABS: IGG SUBCLASS 1 416 mg/dL (248-810); IGG SUBCLASS 2 217 mg/dL (130-555); IGG SUBCLASS 3 44 mg/dL (15-102); IGG SUBCLASS 4 17 mg/dL (2-96); IMMUNOGLOBULIN G 650 mg/dL (700-1600)
[2017-08-26 20:07] LABS: ADENOVIRUS PCR Negative (Negative); INFLUENZA A PCR Negative (Negative); INFLUENZA B PCR Negative (Negative); METAPNEUMOVIRUS PCR Negative (Negative); PARAINFLUENZA 1 PCR Negative (Negative); PARAINFLUENZA 2 PCR Negative (Negative); PARAINFLUENZA 3 PCR Negative (Negative); RESP SYNCYTIAL VIRUS A PCR Negative (Negative); RESP SYNCYTIAL VIRUS B PCR Negative (Negative); RHINOVIRUS PCR Positive (Negative)
== END 2017-08-23 14:10 | disposition home or self-care (01) | DRG 153 ==
LOC: ED 20:36 → EDIP 22:33 → 3NW 23:40
PROVIDERS: ADMIT Family Medicine; ATTEND Family Medicine
DX: J01.90 Acute sinusitis, unspecified (principal); F11.20 Opioid dependence, uncomplicated; G70.00 Myasthenia gravis without (acute) exacerbation; F41.9 Anxiety disorder, unspecified; M35.9 Systemic involvement of connective tissue, unspecified; G50.0 Trigeminal neuralgia; J32.2 Chronic ethmoidal sinusitis; M67.40 Ganglion, unspecified site; Z88.1 Allergy status to other antibiotic agents; Z88.8 Allergy status to other drugs, medicaments and biological substances
CPT/HCPCS: 36415; 80048; 81025; 82040; 82784; 82787; 83735; 84145; 84443; 85025; 85651; 86140; 87633; 96365; 96375; J0712; J1100; J1170; J1650; J1885; J2405; J2550; C9113; J1200; J2060; J2930; J7030; J7050; J7512

== ENCOUNTER → 2017-08-30 | Outpatient (CLI) | payer OTHER | LOC: RAD 14:41 | PROVIDERS: ATTEND Internal Medicine Infectious Disease | DX: Z45.2 Encounter for adjustment and management of vascular access device (principal); Z79.2 Long term (current) use of antibiotics | CPT/HCPCS: 36569; 76937; 77001; C1751 ==

== ENCOUNTER → 2017-10-10 | Outpatient (CLI) | payer OTHER | LOC: LAB 09:53 | PROVIDERS: ATTEND Internal Medicine Infectious Disease | DX: J32.0 Chronic maxillary sinusitis (principal); Z79.2 Long term (current) use of antibiotics | CPT/HCPCS: 36415; 86609; 86684; 86741 ==

== ENCOUNTER 2017-10-15 19:45 | Inpatient (IN) | payer OTHER ==
[~2017-10-15] VITALS: Ht 157.5 cm; Wt 65.6 kg
[2017-10-15] MEDS: ONDANSETRON 2MG/ML, 2ML IVPush ONE ×2 (20:30→20:48)
[2017-10-15] MEDS ORDERED: SODIUM CHLORIDE 0.9% 1,000ML IVBOLUS ONE (20:30)
[2017-10-15] MEDS ORDERED: ONDANSETRON 2MG/ML, 2ML ONE (20:40)
[2017-10-15 20:45] LABS: BASOPHILS # (AUTO) 0.01 x10^3/uL (0-0.1); BASOPHILS % (AUTO) 0 % (0-1); EOSINOPHILS # (AUTO) 0.02 x10^3/uL (0-0.4); EOSINOPHILS % (AUTO) 0 % (1-7); LYMPHOCYTES % (AUTO) 4 % (22-44); MD NO; MEAN CORPUSCULAR HEMOGLOBIN 27.6 pg (27.0-34.8); MEAN CORPUSCULAR HGB CONC 32.6 g/dL (32.4-35.8); MEAN CORPUSCULAR VOLUME 84.8 fL (80-100); MONOCYTES # (AUTO) 0.45 x10^3/uL (0.2-0.8); MONOCYTES % (AUTO) 6 % (2-9); NEUTROPHILS # (AUTO) 7.06 x10^3/uL (1.8-6.8); NEUTROPHILS % (AUTO) 90 % (42-75); PLATELET COUNT 248 x10^3/uL (130-400); RED BLOOD COUNT 4.04 x10^6/uL (3.82-5.3)
[2017-10-15 20:56] LABS: ALANINE AMINOTRANSFERASE 14 U/L (12-78); ALBUMIN 3.9 g/dL (3.4-5.0); ANION GAP 9 mmol/L (5-15); CALCIUM 8.3 mg/dL (8.5-10.1); CHLORIDE 112 mmol/L (98-107)
[2017-10-15 20:59] LABS: ALKALINE PHOSPHATASE 34 U/L (45-117); BILIRUBIN,TOTAL 0.6 mg/dL (0.2-1.0); CREATININE 0.74 mg/dL (0.55-1.02); TOTAL PROTEIN 6.8 g/dL (6.4-8.2)
[2017-10-15 21:17] LABS: HCG UR SG 1.026 (1.003-1.030); MICROSCOPIC NOT IND
[2017-10-15 21:21] LABS: CULTURE INDICATED? NO
[2017-10-15] MEDS ORDERED: SODIUM CHLORIDE 0.9% 1,000 ML IV ONE (21:58)
[2017-10-15] MEDS ORDERED: KETOROLAC 30 MG/1 ML IVPush ONE (22:00)
[2017-10-15] MEDS ORDERED: ONDANSETRON 2MG/ML, 2ML IVPush PRN (22:00)
[2017-10-15] MEDS ORDERED: KETOROLAC 30 MG/1 ML ONE (22:06)
[2017-10-15 22:38] VITALS: BP 101/68
[2017-10-16] MEDS ORDERED: ENOXAPARIN 40 MG/0.4 ML SQ SCH
[2017-10-16] MEDS ORDERED: PROMETHAZINE 25 MG/ML, 1ML IM PRN
[2017-10-16] MEDS ORDERED: OXYcodone/APAP 5/325MG TABLET PO PRN
[2017-10-16] MEDS ORDERED: TEMAZEPAM 15 MG CAPSULE PO PRN
[2017-10-16] MEDS ORDERED: ONDANSETRON 2MG/ML, 2ML IVPush PRN
[2017-10-16] MEDS ORDERED: ENALAPRILAT 1.25 MG/ML, 2ML IVPush PRN
[2017-10-16] MEDS ORDERED: DOCUSATE 100 MG CAPSULE PO PRN
[2017-10-16 00:56] LABS: RAPID INFLUENZA A Negative (Negative); RAPID INFLUENZA B Negative (Negative)
[2017-10-16] MEDS ORDERED: OXYcodone 5 MG/5 ML ORAL.SOL UDC PO PRN (01:00)
[2017-10-16] MEDS ORDERED: KETOROLAC 30 MG/1 ML IVPush PRN (01:00)
[2017-10-16] MEDS: OXYcodone 5 MG/5 ML ORAL.SOL UDC PO PRN ×3 (01:04→12:13)
[2017-10-16] MEDS: DIPHENHYDRAMINE 50 MG/ML, 1ML IVPush PRN ×2 (03:10→13:40)
[2017-10-16] MEDS: METOCLOPRAMIDE 5 MG/ML, 2ML IVPush PRN ×2 (03:10→13:39)
[2017-10-16 07:52] VITALS: BP 103/69
[2017-10-16] MEDS ORDERED: SUMATRIPTAN 6MG/0.5ML SQ ONE (08:00)
[2017-10-16] MEDS: PYRIDOSTIGMINE 60 MG TABLET PO SCH ×2 (08:55)
[2017-10-16] MEDS ORDERED: DULOXETINE 30 MG CAPSULE.DR PO SCH (09:00)
[2017-10-16] MEDS: KETOROLAC 30 MG/1 ML IVPush PRN ×2 (09:34→15:51)
[2017-10-16 13:07] VITALS: BP 108/69
== END 2017-10-16 16:56 | disposition home or self-care (01) | DRG 866 ==
LOC: ED 19:57 → EDIP 21:58 → 3NW 22:31
PROVIDERS: ADMIT Internal Medicine; ATTEND Family Medicine
DX: B34.9 Viral infection, unspecified (principal); D89.89 Other specified disorders involving the immune mechanism, not elsewhere classified; F11.20 Opioid dependence, uncomplicated; G70.00 Myasthenia gravis without (acute) exacerbation; F33.0 Major depressive disorder, recurrent, mild; R47.01 Aphasia; E86.0 Dehydration; F41.9 Anxiety disorder, unspecified; G50.0 Trigeminal neuralgia; J32.9 Chronic sinusitis, unspecified; T38.0X5A Adverse effect of glucocorticoids and synthetic analogues, initial encounter; Z79.891 Long term (current) use of opiate analgesic; Z88.8 Allergy status to other drugs, medicaments and biological substances
CPT/HCPCS: 36415; 80053; 81003; 81025; 85025; 87400; 96374; 96375; J1650; J1885; J2405; J2550; J1200; J2765; J3030; J7030; J7512

== ENCOUNTER 2017-11-16 20:01 | Inpatient (IN) | payer OTHER ==
[~2017-11-16] VITALS: Ht 180.3 cm; Wt 65.2 kg
[2017-11-16] MEDS ORDERED: ONDANSETRON 2MG/ML, 2ML IVPush ONE (21:00)
[2017-11-16] MEDS ORDERED: SODIUM CHLORIDE FLUSH 10ML SYR IVF ONE (21:00)
[2017-11-16] MEDS ORDERED: SODIUM CHLORIDE 0.9% 1,000ML IVBOLUS ONE (21:00)
[2017-11-16 21:03] LABS: RAPID INFLUENZA A Negative (Negative); RAPID INFLUENZA B Negative (Negative)
[2017-11-16 21:19] LABS: BASOPHILS # (AUTO) 0.06 x10^3/uL (0-0.1); BASOPHILS % (AUTO) 1 % (0-1); EOSINOPHILS # (AUTO) 0.08 x10^3/uL (0-0.4); EOSINOPHILS % (AUTO) 1 % (1-7); LYMPHOCYTES # (AUTO) 2.31 x10^3/uL (1-3.4); LYMPHOCYTES % (AUTO) 31 % (22-44); MD NO; MEAN CORPUSCULAR HEMOGLOBIN 27.5 pg (27.0-34.8); MEAN CORPUSCULAR HGB CONC 32.8 g/dL (32.4-35.8); MEAN CORPUSCULAR VOLUME 83.9 fL (80-100); MEAN PLATELET VOLUME 8.8 fL (7.4-10.4); MONOCYTES # (AUTO) 0.75 x10^3/uL (0.2-0.8); MONOCYTES % (AUTO) 10 % (2-9); NEUTROPHILS # (AUTO) 4.29 x10^3/uL (1.8-6.8); NEUTROPHILS % (AUTO) 57 % (42-75); PLATELET COUNT 328 x10^3/uL (130-400); RED CELL DISTRIBUTION WIDTH 16.4 % (9.6-15.2)
[2017-11-16 21:24] LABS: ALANINE AMINOTRANSFERASE 21 U/L (12-78); ALBUMIN 4.3 g/dL (3.4-5.0); ANION GAP 8 mmol/L (5-15); CHLORIDE 108 mmol/L (98-107)
[2017-11-16 21:27] LABS: ALKALINE PHOSPHATASE 37 U/L (45-117); BILIRUBIN,TOTAL 0.2 mg/dL (0.2-1.0); CREATININE 0.81 mg/dL (0.55-1.02)
[2017-11-16] MEDS ORDERED: CEFTAROLINE 600 MG in SODIUM CHLORIDE 0.9% 100 ML IV ONE (21:30)
[2017-11-16] MEDS ORDERED: DEXAMETHASONE 4 MG/ML, 1ML IVPush ONE (21:30)
[2017-11-16] MEDS ORDERED: ONDANSETRON 2MG/ML, 2ML ONE (21:54)
[2017-11-16] MEDS ORDERED: DEXAMETHASONE 4 MG/ML, 1ML ONE (21:54)
[2017-11-16] MEDS ORDERED: HYDROmorphone 2 MG/ML, 1ML ONE ×2 (21:54→22:13)
[2017-11-16] MEDS: HYDROmorphone 1 MG/ML, 1ML IVPush PRN ×2 (22:02→22:34)
[2017-11-16] MEDS ORDERED: DIPH25CA61 PO (22:10)
[2017-11-16 23:00] VITALS: BP 114/71
[2017-11-16] MEDS ORDERED: BUTALB/APAP/CAFFEINE 50MG/325MG/40MG PO PRN (23:30)
[2017-11-16] MEDS ORDERED: DOCUSATE 100 MG CAPSULE PO PRN (23:30)
[2017-11-16] MEDS ORDERED: ONDANSETRON 2MG/ML, 2ML IVPush PRN (23:30)
[2017-11-16] MEDS ORDERED: FIORICET MC SCH (23:45)
[2017-11-17] MEDS ORDERED: GUAIFENESIN 100 MG/5 ML, 5ML UDC ONE ×2 (00:24→10:34)
[2017-11-17] MEDS: GUAIFENESIN 100 MG/5 ML, 10ML UDC PO PRN ×4 (00:41→21:40)
[2017-11-17] MEDS: PYRIDOSTIGMINE 60 MG TABLET PO SCH ×4 (00:43→21:33)
[2017-11-17] MEDS: PROMETHAZINE 25 MG/ML, 1ML IM PRN ×2 (00:44→09:17)
[2017-11-17] MEDS: HYDROmorphone 2 MG/ML, 1ML IVPush PRN ×6 (00:57→10:37)
[2017-11-17] MEDS: KETOROLAC 30 MG/1 ML IVPush SCH ×4 (01:18→19:34)
[2017-11-17 07:37] VITALS: BP 94/55
[2017-11-17] MEDS: CEFTAROLINE 600 MG in SODIUM CHLORIDE 0.9% 100 ML IV SCH ×2 (09:18→21:34)
[2017-11-17] MEDS: DULOXETINE 30 MG CAPSULE.DR PO SCH (09:18)
[2017-11-17] MEDS: DEXAMETHASONE 4 MG/ML, 1ML IVPush SCH ×2 (09:18→15:38)
[2017-11-17 13:04] VITALS: BP 130/71
[2017-11-17] MEDS: OXYcodone/APAP 5/325MG TABLET PO PRN ×3 (13:41→21:33)
[2017-11-17] MEDS ORDERED: LORazepam 0.5MG TABLET PO ONE (19:30)
[2017-11-17 20:22] VITALS: BP 109/68
[2017-11-17] MEDS: TEMAZEPAM 15 MG CAPSULE PO PRN (21:33)
[2017-11-18] MEDS: OXYcodone/APAP 5/325MG TABLET PO PRN ×5 (01:34→23:39)
[2017-11-18] MEDS: KETOROLAC 30 MG/1 ML IVPush SCH ×4 (01:34→19:34)
[2017-11-18] MEDS: GUAIFENESIN 100 MG/5 ML, 10ML UDC PO PRN ×3 (02:07→21:19)
[2017-11-18 02:58] VITALS: BP 108/57
[2017-11-18 05:28] LABS: CHLORIDE 113 mmol/L (98-107)
[2017-11-18 05:29] LABS: BASOPHILS # (AUTO) 0.02 x10^3/uL (0-0.1); BASOPHILS % (AUTO) 0 % (0-1); EOSINOPHILS # (AUTO) 0.01 x10^3/uL (0-0.4); EOSINOPHILS % (AUTO) 0 % (1-7); LYMPHOCYTES # (AUTO) 1.58 x10^3/uL (1-3.4); LYMPHOCYTES % (AUTO) 19 % (22-44); MD NO; MEAN CORPUSCULAR HEMOGLOBIN 27.9 pg (27.0-34.8); MEAN CORPUSCULAR HGB CONC 32.9 g/dL (32.4-35.8); MEAN CORPUSCULAR VOLUME 84.9 fL (80-100); MEAN PLATELET VOLUME 8.9 fL (7.4-10.4); MONOCYTES # (AUTO) 0.84 x10^3/uL (0.2-0.8); MONOCYTES % (AUTO) 10 % (2-9); NEUTROPHILS # (AUTO) 5.89 x10^3/uL (1.8-6.8); NEUTROPHILS % (AUTO) 71 % (42-75); PLATELET COUNT 261 x10^3/uL (130-400); RED BLOOD COUNT 3.37 x10^6/uL (3.82-5.3); RED CELL DISTRIBUTION WIDTH 16.5 % (9.6-15.2)
[2017-11-18 05:37] LABS: ALANINE AMINOTRANSFERASE 17 U/L (12-78); ALBUMIN 3.4 g/dL (3.4-5.0); ALKALINE PHOSPHATASE 31 U/L (45-117); ANION GAP 7 mmol/L (5-15); BILIRUBIN,TOTAL 0.4 mg/dL (0.2-1.0); C-REACTIVE PROTEIN, QUANT < 0.02 mg/dL (0.02-0.49); CALCIUM 8.3 mg/dL (8.5-10.1); CREATININE 0.75 mg/dL (0.55-1.02); TOTAL PROTEIN 6.6 g/dL (6.4-8.2)
[2017-11-18 06:36] LABS: HCT (SEDRATE) 34.4 % (34.6-47.8)
[2017-11-18] MEDS: PYRIDOSTIGMINE 60 MG TABLET PO SCH ×3 (07:55→21:15)
[2017-11-18] MEDS: DULOXETINE 30 MG CAPSULE.DR PO SCH (08:03)
[2017-11-18 08:05] VITALS: BP 115/73
[2017-11-18] MEDS: CEFTAROLINE 600 MG in SODIUM CHLORIDE 0.9% 100 ML IV SCH ×2 (09:36→21:15)
[2017-11-18 13:54] VITALS: BP 112/73
[2017-11-18] MEDS ORDERED: HYDROmorphone 2 MG/ML, 1ML ONE ×2 (15:21→19:30)
[2017-11-18] MEDS: HYDROmorphone 1 MG/ML, 1ML IV PRN ×2 (15:27→19:35)
[2017-11-18 20:14] VITALS: BP 106/63
[2017-11-18] MEDS: TEMAZEPAM 15 MG CAPSULE PO PRN (21:20)
[2017-11-18] MEDS ORDERED: OXYcodone/APAP 5/325MG TABLET PO PRN (22:30)
[2017-11-18] MEDS: CARBAMAZEPINE 200 MG TABLET PO SCH (22:30)
[2017-11-19 04:07] VITALS: BP 94/57
[2017-11-19] MEDS: OXYcodone/APAP 5/325MG TABLET PO PRN ×3 (04:09→12:30)
[2017-11-19 05:22] LABS: BASOPHILS # (AUTO) 0.03 x10^3/uL (0-0.1); BASOPHILS % (AUTO) 1 % (0-1); EOSINOPHILS # (AUTO) 0.17 x10^3/uL (0-0.4); EOSINOPHILS % (AUTO) 3 % (1-7); LYMPHOCYTES # (AUTO) 1.15 x10^3/uL (1-3.4); LYMPHOCYTES % (AUTO) 22 % (22-44); MD NO; MEAN CORPUSCULAR HGB CONC 33.1 g/dL (32.4-35.8); MEAN CORPUSCULAR VOLUME 84.6 fL (80-100); MEAN PLATELET VOLUME 8.6 fL (7.4-10.4); MONOCYTES # (AUTO) 0.79 x10^3/uL (0.2-0.8); MONOCYTES % (AUTO) 15 % (2-9); NEUTROPHILS # (AUTO) 3.11 x10^3/uL (1.8-6.8); NEUTROPHILS % (AUTO) 59 % (42-75); PLATELET COUNT 236 x10^3/uL (130-400); RED BLOOD COUNT 3.55 x10^6/uL (3.82-5.3); RED CELL DISTRIBUTION WIDTH 16.5 % (9.6-15.2)
[2017-11-19 05:24] LABS: ABSOLUTE RETICS # 0.036 x10^6/uL (0.5-2.5); RED BLOOD COUNT 3.64 x10^6/uL (3.82-5.3); RETICULOCYTE COUNT % 0.98 % (0.5-1.5)
[2017-11-19 05:28] LABS: CHLORIDE 112 mmol/L (98-107)
[2017-11-19 05:44] LABS: % IRON SATURATION 10 % (20-55); ANION GAP 5 mmol/L (5-15); CALCIUM 7.9 mg/dL (8.5-10.1); CREATININE 0.83 mg/dL (0.55-1.02); IRON LEVEL 31 mcg/dL (50-170); TOTAL IRON BINDING CAPACITY 312 mcg/dL (250-450)
[2017-11-19 06:22] LABS: SEDIMENTATION RATE 9 mm/hr (0-20)
[2017-11-19 07:09] VITALS: BP 97/56
[2017-11-19] MEDS: CARBAMAZEPINE 200 MG TABLET PO SCH (07:24)
[2017-11-19] MEDS: PYRIDOSTIGMINE 60 MG TABLET PO SCH (08:20)
[2017-11-19] MEDS: DULOXETINE 30 MG CAPSULE.DR PO SCH (08:20)
[2017-11-19] MEDS: GUAIFENESIN 100 MG/5 ML, 10ML UDC PO PRN (08:32)
[2017-11-19] MEDS ORDERED: FLUTICASONE NASAL SPRAY 16GM NAS SCH (09:00)
[2017-11-19] MEDS: CEFTAROLINE 600 MG in SODIUM CHLORIDE 0.9% 100 ML IV SCH (10:02)
[2017-11-19 12:20] VITALS: BP 116/67
== END 2017-11-19 12:46 | disposition home or self-care (01) | DRG 57 ==
LOC: ED 21:55 → EDIP 21:56 → 4NOR 22:45
PROVIDERS: ADMIT Internal Medicine; ATTEND Internal Medicine
DX: G70.00 Myasthenia gravis without (acute) exacerbation (principal); D83.9 Common variable immunodeficiency, unspecified; F11.20 Opioid dependence, uncomplicated; G50.0 Trigeminal neuralgia; J01.90 Acute sinusitis, unspecified; Z76.5 Malingerer [conscious simulation]; G43.909 Migraine, unspecified, not intractable, without status migrainosus
CPT/HCPCS: 36415; 71046; 80048; 80053; 82728; 82784; 82787; 83540; 83550; 83735; 85025; 85045; 85651; 86140; 87400; 93005; 96361; 96374; 96375; 96376; J0712; J1100; J1170; J1885; J2405; J2550; J7030

== ENCOUNTER 2018-05-02 19:48 | Emergency (ER) | payer OTHER ==
[~2018-05-02] VITALS: Ht 175.3 cm; Wt 65.2 kg
[~2018-05-02 19:48] MED LIST changes: +DIPH25CA61 PO; -INDO25CA PO; +INDO25CA5 PO; +OXYC-432 PO; -OXYC1TAB9 PO
[2018-05-02] MEDS ORDERED: ONDANSETRON ODT 4 MG PO ONE (20:30)
[2018-05-02] MEDS ORDERED: ONDANSETRON ODT 4 MG ONE (20:31)
[2018-05-02 20:42] LABS: BASOPHILS # (AUTO) 0.02 x10^3/uL (0-0.1); BASOPHILS % (AUTO) 0 % (0-1); EOSINOPHILS # (AUTO) 0.06 x10^3/uL (0-0.4); EOSINOPHILS % (AUTO) 1 % (1-7); LYMPHOCYTES # (AUTO) 1.93 x10^3/uL (1-3.4); LYMPHOCYTES % (AUTO) 25 % (22-44); MD NO; MEAN CORPUSCULAR HEMOGLOBIN 29.4 pg (27.0-34.8); MEAN CORPUSCULAR HGB CONC 33.3 g/dL (32.4-35.8); MEAN CORPUSCULAR VOLUME 88.3 fL (80-100); MEAN PLATELET VOLUME 8.3 fL (7.4-10.4); MONOCYTES # (AUTO) 0.67 x10^3/uL (0.2-0.8); MONOCYTES % (AUTO) 9 % (2-9); NEUTROPHILS # (AUTO) 5.13 x10^3/uL (1.8-6.8); NEUTROPHILS % (AUTO) 66 % (42-75); PLATELET COUNT 344 x10^3/uL (130-400)
[2018-05-02 20:54] LABS: ALANINE AMINOTRANSFERASE 17 U/L (12-78); ANION GAP 9 mmol/L (5-15); CHLORIDE 113 mmol/L (98-107); CREATININE 0.81 mg/dL (0.55-1.02)
[2018-05-02] MEDS ORDERED: KETOROLAC 30 MG/1 ML ONE (20:54)
[2018-05-02] MEDS ORDERED: DIPHENHYDRAMINE 50 MG/ML, 1ML ONE (20:54)
[2018-05-02] MEDS ORDERED: METOCLOPRAMIDE 5 MG/ML, 2ML ONE ×2 (20:54→22:26)
[2018-05-02 20:59] LABS: ALKALINE PHOSPHATASE 36 U/L (45-117); BILIRUBIN,TOTAL 0.2 mg/dL (0.2-1.0); TOTAL PROTEIN 8.5 g/dL (6.4-8.2); TROPONIN I < 0.015 ng/mL (0.000-0.045)
[2018-05-02] MEDS ORDERED: SODIUM CHLORIDE FLUSH 10ML SYR IVF ONE (21:00)
[2018-05-02] MEDS ORDERED: SODIUM CHLORIDE 0.9% 1,000ML IVBOLUS ONE (21:00)
[2018-05-02] MEDS ORDERED: DIPHENHYDRAMINE 50 MG/ML, 1ML IVPush ONE (21:00)
[2018-05-02] MEDS ORDERED: METOCLOPRAMIDE 5 MG/ML, 2ML IVPush ONE ×2 (21:00→22:30)
[2018-05-02] MEDS ORDERED: KETOROLAC 30 MG/1 ML IVPush ONE (21:00)
[2018-05-02] MEDS ORDERED: ACETAMINOPHEN 500 MG TABLET ONE (22:26)
[2018-05-02] MEDS ORDERED: ACETAMINOPHEN 500 MG TABLET PO ONE (22:30)
[2018-05-02 22:31] VITALS: BP 114/57
[2018-05-02 23:11] LABS: MICROSCOPIC NOT IND
[2018-05-02 23:22] LABS: CULTURE INDICATED? NO
== END 2018-05-02 23:11 | disposition home or self-care (01) ==
LOC: ED 22:27
DX: G43.909 Migraine, unspecified, not intractable, without status migrainosus (principal); R11.2 Nausea with vomiting, unspecified
CPT/HCPCS: 36415; 71045; 80053; 81003; 84484; 84703; 85025; 93005; 96361; 96374; 96375; 96376; 99285; J1200; J1885; J2765; J7030; Q0162

== ENCOUNTER 2018-05-19 14:13 | Day surgery (SDC) | payer OTHER ==
[~2018-05-19] VITALS: Ht 180.3 cm; Wt 85.6 kg
[2018-05-19] MEDS ORDERED: LACTATED RINGERS 1,000 ML IV SCH (14:21)
[2018-05-19] MEDS ORDERED: PLEASE ENTER HEIGHT AND WEIGHT MC SCH (14:30)
[2018-05-19 14:48] VITALS: BP 124/87
[2018-05-19] MEDS ORDERED: PRED1TAB PO (14:59)
[2018-05-19] MEDS ORDERED: OXYC-306 PO (14:59)
[2018-05-19] MEDS ORDERED: IGG (14:59)
[2018-05-19 15:21] LABS: HCG UR SG 1.016 (1.003-1.030)
[2018-05-19] MEDS ORDERED: FENTANYL PF 100 MCG/2ML ONE ×2 (15:45→17:50)
[2018-05-19] MEDS ORDERED: MIDAZOLAM 1 MG/ML, 2ML ONE (15:45)
[2018-05-19] MEDS ORDERED: PROPOFOL 50 ML ONE (15:46)
[2018-05-19] MEDS ORDERED: EPHEDRINE 50 MG/ML, 1ML ONE (16:09)
[2018-05-19] MEDS ORDERED: CEFAZOLIN 1,000 MG ONE (16:09)
[2018-05-19] MEDS ORDERED: DEXAMETHASONE 4 MG/ML, 1ML ONE (16:09)
[2018-05-19] MEDS ORDERED: PROPOFOL 10 MG/ML, 20ML ONE (16:09)
[2018-05-19] MEDS ORDERED: ONDANSETRON 2MG/ML, 2ML ONE (16:09)
[2018-05-19] MEDS ORDERED: BUPIVACAINE/PF 0.5% ONE (16:52)
[2018-05-19] MEDS ORDERED: EPINEPHRINE 1 MG/ML, 1ML ONE (16:52)
[2018-05-19] MEDS ORDERED: PROTAMINE SULFATE 10 MG/ML, 5ML ONE (16:53)
[2018-05-19] MEDS ORDERED: HEPARIN 1,000 UNITS/ML, 10ML ONE (16:53)
[2018-05-19] MEDS ORDERED: HYDROmorphone 2 MG/ML, 1ML ONE ×2 (17:50→18:45)
[2018-05-19] MEDS: HYDROmorphone 1 MG/ML, 1ML IV PRN ×5 (17:51→18:49)
[2018-05-19] MEDS: FENTANYL PF 100 MCG/2ML IV PRN ×2 (17:59→18:14)
[2018-05-19] MEDS ORDERED: ACETAMINOPHEN 325 MG TABLET PO PRN (18:00)
[2018-05-19] MEDS ORDERED: OXYcodone 5 MG/5 ML ORAL.SOL UDC PO PRN (18:00)
[2018-05-19] MEDS ORDERED: PROMETHAZINE 25 MG/ML, 1ML IV PRN (18:00)
[2018-05-19] MEDS ORDERED: ONDANSETRON 2MG/ML, 2ML IV PRN (18:00)
[2018-05-19] MEDS ORDERED: ONDANSETRON ODT 8 MG PO PRN (18:00)
[2018-05-19] MEDS ORDERED: KETOROLAC 30 MG/1 ML ONE (18:25)
[2018-05-19] MEDS ORDERED: KETOROLAC 30 MG/1 ML IM ONE (18:30)
[2018-05-19] MEDS ORDERED: ACETAMINOPHEN 650 MG/20.3 ML UDC ONE (18:31)
[2018-05-19] MEDS ORDERED: OXYcodone 5 MG/5 ML ORAL.SOL UDC ONE (18:31)
[2018-05-19 19:40] VITALS: BP 127/70
[2018-05-19] MEDS ORDERED: morphine SULFATE 10 MG/ML, 1ML IVPush PRN (20:00)
[2018-05-19] MEDS ORDERED: HYDROcodone/APAP 5/325 TABLET PO PRN (20:00)
[2018-05-19] MEDS ORDERED: OXYC-302 PO (20:04)
== END 2018-05-19 20:35 | disposition home or self-care (01) ==
LOC: OUT 14:13 → 4NOR 19:15 → OUT 20:35
PROVIDERS: ATTEND Surgery
DX: Z45.2 Encounter for adjustment and management of vascular access device (principal); D83.9 Common variable immunodeficiency, unspecified; G70.00 Myasthenia gravis without (acute) exacerbation; G43.909 Migraine, unspecified, not intractable, without status migrainosus; Z98.890 Other specified postprocedural states; Z79.899 Other long term (current) drug therapy
CPT/HCPCS: 36561; 77001; 81025; C1788; J0171; J0690; J1100; J1170; J1644; J1885; J2250; J2405; J2704; J3010; J3490; J7120; 76000; J2720

== ENCOUNTER 2018-08-01 17:48 | Inpatient (IN) | payer OTHER ==
[~2018-08-01] VITALS: Ht 180.3 cm; Wt 72.0 kg
[~2018-08-01 17:48] MED LIST changes: +IGG; +OXYC-306 PO; +PRED1TAB PO
[2018-08-01 18:08] VITALS: BP 97/66
[2018-08-01 20:06] VITALS: BP 114/78
[2018-08-01] MEDS: HYDROmorphone 2 MG/ML, 1ML IVPush PRN ×2 (20:34→20:49)
[2018-08-01] MEDS: KETOROLAC 30 MG/1 ML IVPush SCH (20:41)
[2018-08-01] MEDS: ONDANSETRON ODT 4 MG PO PRN (20:41)
[2018-08-01] MEDS: ENOXAPARIN 40 MG/0.4 ML SQ SCH (20:49)
[2018-08-01] MEDS: SENNA/DOCUSATE TABLET PO SCH (22:11)
[2018-08-01] MEDS: DULOXETINE 30 MG CAPSULE.DR PO SCH (22:12)
[2018-08-01] MEDS: ACYCLOVIR 400 MG TABLET PO SCH (22:12)
[2018-08-01] MEDS: DIPHENHYDRAMINE 50 MG/ML, 1ML IVPush PRN (22:12)
[2018-08-02] MEDS: HYDROmorphone 2 MG/ML, 1ML IVPush PRN ×8 (00:12→21:32)
[2018-08-02] MEDS: KETOROLAC 30 MG/1 ML IVPush SCH ×4 (02:18→20:35)
[2018-08-02 02:22] VITALS: BP 104/65
[2018-08-02 03:25] LABS: BASOPHILS # (AUTO) 0.08 x10^3/uL (0-0.1); BASOPHILS % (AUTO) 1 % (0-1); EOSINOPHILS # (AUTO) 0.11 x10^3/uL (0-0.4); EOSINOPHILS % (AUTO) 2 % (1-7); LYMPHOCYTES # (AUTO) 3.03 x10^3/uL (1-3.4); LYMPHOCYTES % (AUTO) 39 % (22-44); MD NO; MEAN CORPUSCULAR HEMOGLOBIN 30.2 pg (27.0-34.8); MEAN CORPUSCULAR HGB CONC 33.3 g/dL (32.4-35.8); MEAN CORPUSCULAR VOLUME 90.7 fL (80-100); MEAN PLATELET VOLUME 8.4 fL (7.4-10.4); MONOCYTES # (AUTO) 0.84 x10^3/uL (0.2-0.8); MONOCYTES % (AUTO) 11 % (2-9); NEUTROPHILS # (AUTO) 3.68 x10^3/uL (1.8-6.8); NEUTROPHILS % (AUTO) 48 % (42-75); PLATELET COUNT 282 x10^3/uL (130-400); RED BLOOD COUNT 3.54 x10^6/uL (3.82-5.3); RED CELL DISTRIBUTION WIDTH 14.7 % (9.6-15.2)
[2018-08-02 03:37] LABS: ALANINE AMINOTRANSFERASE 21 U/L (12-78); ALBUMIN 3.6 g/dL (3.4-5.0); ANION GAP 8 mmol/L (5-15); CALCIUM 8.1 mg/dL (8.5-10.1); CHLORIDE 109 mmol/L (98-107); CREATININE 0.67 mg/dL (0.55-1.02)
[2018-08-02 03:40] LABS: ALKALINE PHOSPHATASE 32 U/L (45-117); BILIRUBIN,TOTAL 0.2 mg/dL (0.2-1.0)
[2018-08-02] MEDS: DIPHENHYDRAMINE 50 MG/ML, 1ML IVPush PRN ×3 (03:54→16:06)
[2018-08-02 07:39] VITALS: BP 94/60
[2018-08-02] MEDS: ONDANSETRON ODT 4 MG PO PRN ×2 (07:58→20:35)
[2018-08-02] MEDS: ACYCLOVIR 400 MG TABLET PO SCH ×2 (09:03→21:33)
[2018-08-02] MEDS: SENNA/DOCUSATE TABLET PO SCH ×2 (09:03→21:33)
[2018-08-02] MEDS ORDERED: PLEASE ENTER PATIENTS HEIGHT MC SCH (10:30)
[2018-08-02] MEDS: BUTALB/APAP/CAFFEINE 50MG/325MG/40MG PO PRN (13:34)
[2018-08-02 14:03] VITALS: BP 122/75
[2018-08-02] MEDS: hydrOXyzine 10 MG/5 ML ORAL SOL PO PRN (20:35)
[2018-08-02 20:41] VITALS: BP 122/80
[2018-08-02] MEDS: ENOXAPARIN 40 MG/0.4 ML SQ SCH (21:32)
[2018-08-02] MEDS: DULOXETINE 30 MG CAPSULE.DR PO SCH (21:32)
[2018-08-03] MEDS: ONDANSETRON ODT 4 MG PO PRN ×2 (00:38→17:41)
[2018-08-03] MEDS: HYDROmorphone 2 MG/ML, 1ML IVPush PRN ×6 (00:38→17:41)
[2018-08-03 01:12] VITALS: BP 99/62
[2018-08-03] MEDS: KETOROLAC 30 MG/1 ML IVPush SCH ×4 (01:43→20:22)
[2018-08-03 06:28] VITALS: BP 97/54
[2018-08-03] MEDS: BUTALB/APAP/CAFFEINE 50MG/325MG/40MG PO PRN (07:36)
[2018-08-03] MEDS: ACYCLOVIR 400 MG TABLET PO SCH ×2 (07:42→20:23)
[2018-08-03] MEDS: SENNA/DOCUSATE TABLET PO SCH ×2 (07:42→20:23)
[2018-08-03] MEDS: hydrOXyzine 10 MG/5 ML ORAL SOL PO PRN (09:47)
[2018-08-03] MEDS ORDERED: HYDROmorphone 1 MG/ML, 1ML IV ONE (11:30)
[2018-08-03] MEDS: OXYcodone/APAP 10/325MG TABLET PO PRN ×3 (11:54→20:23)
[2018-08-03 13:51] VITALS: BP 96/59
[2018-08-03 20:06] VITALS: BP 97/62
[2018-08-03] MEDS: DULOXETINE 30 MG CAPSULE.DR PO SCH (20:23)
[2018-08-03] MEDS: ENOXAPARIN 40 MG/0.4 ML SQ SCH (20:23)
[2018-08-04 01:58] VITALS: BP 104/68
[2018-08-04] MEDS: OXYcodone/APAP 10/325MG TABLET PO PRN ×6 (02:01→22:23)
[2018-08-04] MEDS: KETOROLAC 30 MG/1 ML IVPush SCH ×4 (02:01→20:36)
[2018-08-04] MEDS: HYDROmorphone 2 MG/ML, 1ML IVPush PRN ×5 (02:41→20:36)
[2018-08-04] MEDS: ACYCLOVIR 400 MG TABLET PO SCH ×2 (07:41→20:35)
[2018-08-04] MEDS: SENNA/DOCUSATE TABLET PO SCH ×2 (07:41→20:36)
[2018-08-04 08:06] VITALS: BP 91/57
[2018-08-04] MEDS: ONDANSETRON ODT 4 MG PO PRN (11:01)
[2018-08-04] MEDS ORDERED: BUPR1PAT7 TD (12:11)
[2018-08-04 13:02] VITALS: BP 102/64
[2018-08-04] MEDS ORDERED: DIPHENHYDRAMINE 50 MG/ML, 1ML IVPush PRN (15:00)
[2018-08-04] MEDS ORDERED: METOCLOPRAMIDE 5 MG/ML, 2ML IVPush PRN (15:00)
[2018-08-04] MEDS: DULOXETINE 30 MG CAPSULE.DR PO SCH (20:35)
[2018-08-04] MEDS: ENOXAPARIN 40 MG/0.4 ML SQ SCH (20:43)
[2018-08-04 20:50] VITALS: BP 112/73
[2018-08-05 00:22] VITALS: BP 116/75
[2018-08-05] MEDS: HYDROmorphone 2 MG/ML, 1ML IVPush PRN ×3 (00:30→08:48)
[2018-08-05] MEDS ORDERED: HYDROmorphone 2 MG/ML, 1ML ONE (01:14)
[2018-08-05] MEDS ORDERED: HYDROmorphone 1 MG/ML, 1ML IV ONE (01:30)
[2018-08-05] MEDS: KETOROLAC 30 MG/1 ML IVPush SCH ×3 (02:21→14:12)
[2018-08-05] MEDS: OXYcodone/APAP 10/325MG TABLET PO PRN ×3 (02:21→12:45)
[2018-08-05] MEDS: ONDANSETRON ODT 4 MG PO PRN (04:41)
[2018-08-05 07:06] VITALS: BP 108/73
[2018-08-05] MEDS: SENNA/DOCUSATE TABLET PO SCH (08:25)
[2018-08-05] MEDS: ACYCLOVIR 400 MG TABLET PO SCH (08:26)
[2018-08-05 12:27] VITALS: BP 116/81
== END 2018-08-05 15:59 | disposition home or self-care (01) | DRG 74 ==
LOC: 3NW 17:48
PROVIDERS: ADMIT Internal Medicine; ATTEND Internal Medicine
DX: G50.0 Trigeminal neuralgia (principal); D80.3 Selective deficiency of immunoglobulin G [IgG] subclasses; F11.20 Opioid dependence, uncomplicated; G70.00 Myasthenia gravis without (acute) exacerbation; J32.9 Chronic sinusitis, unspecified; M13.0 Polyarthritis, unspecified; G89.29 Other chronic pain; Z79.52 Long term (current) use of systemic steroids; Z79.899 Other long term (current) drug therapy; Z92.241 Personal history of systemic steroid therapy
CPT/HCPCS: 36415; 80053; 85025; G0378; J1170; J1650; J1885; J7512; Q0162; J1200; J2765; Q0177

== ENCOUNTER 2018-10-16 12:00 | Inpatient (IN) | payer OTHER ==
[~2018-10-16] VITALS: Ht 180.3 cm; Wt 72.4 kg
[~2018-10-16 12:00] MED LIST changes: +BUPR1PAT7 TD
[2018-10-16 12:48] VITALS: BP 108/70
[2018-10-16] MEDS ORDERED: HYDROmorphone 1 MG/ML, 1ML IV ONE (14:30)
[2018-10-16] MEDS ORDERED: ONDANSETRON 2MG/ML, 2ML IVPush ONE (14:30)
[2018-10-16] MEDS ORDERED: HYDROmorphone 2 MG/ML, 1ML ONE (14:38)
[2018-10-16] MEDS ORDERED: PHARMACY INSTRUCTION MC PRN (15:00)
[2018-10-16] MEDS ORDERED: OXYcodone/APAP 7.5/325MG TABLET PO PRN (15:00)
[2018-10-16] MEDS ORDERED: ACETAMINOPHEN 325 MG TABLET PO PRN (15:00)
[2018-10-16] MEDS ORDERED: HYDROmorphone 2 MG/ML, 1ML IVPush ONE (15:00)
[2018-10-16] MEDS ORDERED: DOCUSATE 100 MG CAPSULE PO PRN (15:00)
[2018-10-16] MEDS ORDERED: PLEASE ENTER HEIGHT AND WEIGHT MC SCH (15:00)
[2018-10-16] MEDS ORDERED: BUTALB/APAP/CAFFEINE 50MG/325MG/40MG PO PRN (15:00)
[2018-10-16] MEDS ORDERED: PYRIDOSTIGMINE 60 MG TABLET PO PRN (15:30)
[2018-10-16] MEDS: SODIUM CHLORIDE 0.9% 1,000 ML IV SCH (16:00)
[2018-10-16] MEDS ORDERED: BUPRENORPHINE 10 MCG/HR TP SCH ×2 (16:30→16:42)
[2018-10-16] MEDS: ENOXAPARIN 40 MG/0.4 ML SQ SCH (17:26)
[2018-10-16] MEDS: HYDROmorphone 2 MG/ML, 1ML IVPush PRN ×3 (17:58→23:24)
[2018-10-16] MEDS: DIPHENHYDRAMINE 50 MG/ML, 1ML IVPush PRN (18:17)
[2018-10-16] MEDS: KETOROLAC 30 MG/1 ML IVPush PRN (18:41)
[2018-10-16] MEDS: ONDANSETRON 2MG/ML, 2ML IVPush PRN (20:41)
[2018-10-16] MEDS ORDERED: ACYC-114 PO (21:00)
[2018-10-16 21:09] VITALS: BP 97/62
[2018-10-16] MEDS: DULOXETINE 30 MG CAPSULE.DR PO SCH (21:16)
[2018-10-17] MEDS: KETOROLAC 30 MG/1 ML IVPush PRN ×4 (00:25→18:49)
[2018-10-17] MEDS: DIPHENHYDRAMINE 50 MG/ML, 1ML IVPush PRN ×4 (00:25→18:49)
[2018-10-17] MEDS: SODIUM CHLORIDE 0.9% 1,000 ML IV SCH ×2 (00:35→08:15)
[2018-10-17] MEDS: ONDANSETRON 2MG/ML, 2ML IVPush PRN ×4 (02:23→20:40)
[2018-10-17] MEDS: HYDROmorphone 2 MG/ML, 1ML IVPush PRN ×8 (02:23→23:30)
[2018-10-17 02:29] VITALS: BP 94/57
[2018-10-17 06:15] LABS: BASOPHILS # (AUTO) 0.05 x10^3/uL (0-0.1); BASOPHILS % (AUTO) 1 % (0-1); EOSINOPHILS # (AUTO) 0.09 x10^3/uL (0-0.4); EOSINOPHILS % (AUTO) 2 % (1-7); LYMPHOCYTES # (AUTO) 2.37 x10^3/uL (1-3.4); LYMPHOCYTES % (AUTO) 51 % (22-44); MD NO; MEAN CORPUSCULAR HEMOGLOBIN 29.4 pg (27.0-34.8); MEAN CORPUSCULAR VOLUME 89.1 fL (80-100); MEAN PLATELET VOLUME 8.3 fL (7.4-10.4); MONOCYTES # (AUTO) 0.49 x10^3/uL (0.2-0.8); MONOCYTES % (AUTO) 11 % (2-9); NEUTROPHILS # (AUTO) 1.68 x10^3/uL (1.8-6.8); NEUTROPHILS % (AUTO) 36 % (42-75); PLATELET COUNT 291 x10^3/uL (130-400); RED BLOOD COUNT 3.11 x10^6/uL (3.82-5.3); RED CELL DISTRIBUTION WIDTH 13.7 % (9.6-15.2)
[2018-10-17 06:34] LABS: CHLORIDE 112 mmol/L (98-107)
[2018-10-17 06:59] LABS: ALANINE AMINOTRANSFERASE 18 U/L (12-78); ALBUMIN 3.1 g/dL (3.4-5.0); ALKALINE PHOSPHATASE 30 U/L (45-117); ANION GAP 7 mmol/L (5-15); BILIRUBIN,TOTAL 0.6 mg/dL (0.2-1.0); CALCIUM 7.8 mg/dL (8.5-10.1); CREATININE 0.69 mg/dL (0.55-1.02); TOTAL PROTEIN 6.3 g/dL (6.4-8.2)
[2018-10-17 08:00] VITALS: BP 95/60
[2018-10-17] MEDS ORDERED: DULOXETINE 30 MG CAPSULE.DR PO SCH (09:00)
[2018-10-17 14:00] VITALS: BP 105/64
[2018-10-17] MEDS: POLYETHYLENE GLYCOL 17 GM PACKET PO PRN (14:47)
[2018-10-17] MEDS: ENOXAPARIN 40 MG/0.4 ML SQ SCH (14:47)
[2018-10-17] MEDS: ACYCLOVIR 200 MG CAPSULE PO SCH (17:38)
[2018-10-17 19:31] VITALS: BP 105/68
[2018-10-17] MEDS: DULOXETINE 30 MG CAPSULE.DR PO SCH (20:40)
[2018-10-18 00:36] VITALS: BP 98/61
[2018-10-18] MEDS: DIPHENHYDRAMINE 50 MG/ML, 1ML IVPush PRN ×4 (00:50→18:25)
[2018-10-18] MEDS: KETOROLAC 30 MG/1 ML IVPush PRN ×4 (00:50→18:25)
[2018-10-18] MEDS: HYDROmorphone 2 MG/ML, 1ML IVPush PRN ×6 (02:25→21:55)
[2018-10-18] MEDS: ONDANSETRON 2MG/ML, 2ML IVPush PRN ×3 (02:25→21:58)
[2018-10-18 07:00] VITALS: BP 107/68
[2018-10-18] MEDS: SENNA/DOCUSATE TABLET PO SCH (09:03)
[2018-10-18] MEDS: OXYcodone/APAP 7.5/325MG TABLET PO SCH ×3 (09:04→20:56)
[2018-10-18] MEDS: ACYCLOVIR 200 MG CAPSULE PO SCH ×2 (09:14→20:57)
[2018-10-18 14:00] VITALS: BP 114/75
[2018-10-18] MEDS: POLYETHYLENE GLYCOL 17 GM PACKET PO PRN (14:07)
[2018-10-18] MEDS: ENOXAPARIN 40 MG/0.4 ML SQ SCH (16:07)
[2018-10-18 19:09] VITALS: BP 116/67
[2018-10-18] MEDS: DULOXETINE 30 MG CAPSULE.DR PO SCH (20:56)
[2018-10-19] MEDS: DIPHENHYDRAMINE 50 MG/ML, 1ML IVPush PRN ×4 (00:01→17:42)
[2018-10-19] MEDS: KETOROLAC 30 MG/1 ML IVPush PRN ×4 (00:01→17:42)
[2018-10-19 01:20] VITALS: BP 100/61
[2018-10-19] MEDS: HYDROmorphone 2 MG/ML, 1ML IVPush PRN ×4 (03:36→16:36)
[2018-10-19] MEDS: ONDANSETRON 2MG/ML, 2ML IVPush PRN ×2 (03:40→17:42)
[2018-10-19 06:09] VITALS: BP 112/73
[2018-10-19 07:48] VITALS: BP 101/64
[2018-10-19] MEDS: ACYCLOVIR 200 MG CAPSULE PO SCH (08:19)
[2018-10-19] MEDS: OXYcodone/APAP 7.5/325MG TABLET PO SCH ×2 (08:19→15:36)
[2018-10-19] MEDS: SENNA/DOCUSATE TABLET PO SCH (08:19)
[2018-10-19 12:33] VITALS: BP 107/67
[2018-10-19] MEDS: ENOXAPARIN 40 MG/0.4 ML SQ SCH (14:58)
[2018-10-19] MEDS ORDERED: PRED1TAB PO (16:41)
[2018-10-21] MEDS ORDERED: BUPRENORPHINE 10 MCG/HR TP SCH (21:00)
== END 2018-10-19 18:45 | disposition home or self-care (01) | DRG 74 ==
LOC: 3NW 12:00
PROVIDERS: ADMIT Internal Medicine; ATTEND Internal Medicine
DX: G50.0 Trigeminal neuralgia (principal); D80.3 Selective deficiency of immunoglobulin G [IgG] subclasses; R11.2 Nausea with vomiting, unspecified; E86.0 Dehydration; G70.00 Myasthenia gravis without (acute) exacerbation; G89.29 Other chronic pain; M25.40 Effusion, unspecified joint; J01.90 Acute sinusitis, unspecified; M25.50 Pain in unspecified joint; Z79.52 Long term (current) use of systemic steroids; Z79.899 Other long term (current) drug therapy; Z92.21 Personal history of antineoplastic chemotherapy; Z92.241 Personal history of systemic steroid therapy
CPT/HCPCS: 36415; 80053; 83735; 84100; 85025; G0378; J1170; J1650; J1885; J2405; J1200; J7030; J7512

== ENCOUNTER 2018-11-05 17:32 | Inpatient (IN) | payer OTHER ==
[~2018-11-05] VITALS: Ht 180.3 cm; Wt 58.1 kg
[~2018-11-05 17:32] MED LIST changes: +ACYC-114 PO
[2018-11-05 18:23] VITALS: BP 120/87
[2018-11-05] MEDS ORDERED: PLEASE ENTER HEIGHT AND WEIGHT MC SCH (18:51)
[2018-11-05] MEDS ORDERED: POLYETHYLENE GLYCOL 17 GM PACKET PO PRN (19:00)
[2018-11-05] MEDS ORDERED: BISACODYL 10 MG SUPP PR PRN (19:00)
[2018-11-05] MEDS: HYDROmorphone 2 MG/ML, 1ML IVPush PRN ×4 (19:43→23:50)
[2018-11-05] MEDS: KETOROLAC 30 MG/1 ML IVPush SCH (19:43)
[2018-11-05] MEDS: ONDANSETRON 2MG/ML, 2ML IVPush PRN ×2 (19:44→23:50)
[2018-11-05] MEDS: SODIUM CHLORIDE 0.9% 1,000 ML IV SCH (19:59)
[2018-11-05] MEDS ORDERED: BUTALB/APAP/CAFFEINE 50MG/325MG/40MG PO PRN (20:00)
[2018-11-05] MEDS: DIPHENHYDRAMINE 50 MG/ML, 1ML IVPush PRN (20:50)
[2018-11-05] MEDS: ENOXAPARIN 40 MG/0.4 ML SQ SCH (20:50)
[2018-11-05] MEDS: PYRIDOSTIGMINE 60 MG TABLET PO SCH (20:50)
[2018-11-06 00:23] VITALS: BP 96/60
[2018-11-06] MEDS: DIPHENHYDRAMINE 50 MG/ML, 1ML IVPush PRN ×4 (02:25→20:18)
[2018-11-06] MEDS: KETOROLAC 30 MG/1 ML IVPush SCH ×4 (02:25→20:17)
[2018-11-06 03:10] VITALS: BP 101/64
[2018-11-06] MEDS: HYDROmorphone 2 MG/ML, 1ML IVPush PRN ×8 (03:12→21:45)
[2018-11-06 03:51] LABS: BASOPHILS # (AUTO) 0.03 x10^3/uL (0-0.1); BASOPHILS % (AUTO) 0 % (0-1); EOSINOPHILS # (AUTO) 0.15 x10^3/uL (0-0.4); EOSINOPHILS % (AUTO) 2 % (1-7); LYMPHOCYTES # (AUTO) 2.88 x10^3/uL (1-3.4); LYMPHOCYTES % (AUTO) 42 % (22-44); MD NO; MEAN CORPUSCULAR HEMOGLOBIN 29.6 pg (27.0-34.8); MEAN CORPUSCULAR HGB CONC 33.5 g/dL (32.4-35.8); MEAN CORPUSCULAR VOLUME 88.4 fL (80-100); MEAN PLATELET VOLUME 8.3 fL (7.4-10.4); MONOCYTES # (AUTO) 0.74 x10^3/uL (0.2-0.8); MONOCYTES % (AUTO) 11 % (2-9); NEUTROPHILS # (AUTO) 3.03 x10^3/uL (1.8-6.8); NEUTROPHILS % (AUTO) 44 % (42-75); PLATELET COUNT 300 x10^3/uL (130-400); RED BLOOD COUNT 3.53 x10^6/uL (3.82-5.3); RED CELL DISTRIBUTION WIDTH 14.8 % (9.6-15.2)
[2018-11-06 04:02] LABS: ALANINE AMINOTRANSFERASE 14 U/L (12-78); ALBUMIN 3.5 g/dL (3.4-5.0); ANION GAP 7 mmol/L (5-15); CALCIUM 7.9 mg/dL (8.5-10.1); CHLORIDE 112 mmol/L (98-107)
[2018-11-06 04:04] LABS: ALKALINE PHOSPHATASE 32 U/L (45-117); BILIRUBIN,TOTAL 0.3 mg/dL (0.2-1.0); TOTAL PROTEIN 6.7 g/dL (6.4-8.2)
[2018-11-06] MEDS: ONDANSETRON 2MG/ML, 2ML IVPush PRN ×4 (04:16→18:57)
[2018-11-06] MEDS: SODIUM CHLORIDE 0.9% 1,000 ML IV SCH ×2 (06:08→14:45)
[2018-11-06] MEDS: SENNA/DOCUSATE TABLET PO SCH (08:30)
[2018-11-06] MEDS: PYRIDOSTIGMINE 60 MG TABLET PO SCH ×3 (08:30→21:45)
[2018-11-06] MEDS: DULOXETINE 30 MG CAPSULE.DR PO SCH (08:31)
[2018-11-06 08:52] VITALS: BP 104/70
[2018-11-06] MEDS: predniSONE 5 MG/5 ML ORAL SOL PO SCH (09:23)
[2018-11-06 13:55] VITALS: BP 99/63
[2018-11-06] MEDS ORDERED: HYDROmorphone 2 MG/ML, 1ML ONE (17:25)
[2018-11-06] MEDS ORDERED: HYDROmorphone 1 MG/ML, 1ML IV ONE (17:30)
[2018-11-06 19:13] VITALS: BP 108/66
[2018-11-06] MEDS: ENOXAPARIN 40 MG/0.4 ML SQ SCH (20:27)
[2018-11-07 00:25] VITALS: BP 117/80
[2018-11-07] MEDS: ONDANSETRON 2MG/ML, 2ML IVPush PRN ×6 (00:25→22:29)
[2018-11-07] MEDS: HYDROmorphone 2 MG/ML, 1ML IVPush PRN ×8 (00:46→21:52)
[2018-11-07] MEDS: DIPHENHYDRAMINE 50 MG/ML, 1ML IVPush PRN ×4 (01:41→20:26)
[2018-11-07] MEDS: KETOROLAC 30 MG/1 ML IVPush SCH ×4 (01:42→20:26)
[2018-11-07 08:25] VITALS: BP 91/56
[2018-11-07] MEDS: SENNA/DOCUSATE TABLET PO SCH (08:36)
[2018-11-07] MEDS: DULOXETINE 30 MG CAPSULE.DR PO SCH (08:36)
[2018-11-07] MEDS: PYRIDOSTIGMINE 60 MG TABLET PO SCH (08:36)
[2018-11-07] MEDS: predniSONE 5 MG/5 ML ORAL SOL PO SCH (09:37)
[2018-11-07] MEDS: SODIUM CHLORIDE 0.9% 1,000 ML IV SCH (10:26)
[2018-11-07] MEDS ORDERED: DEXAMETHASONE 4 MG/ML, 5ML IVPush SCH ×2 (11:00→12:54)
[2018-11-07] MEDS ORDERED: HYDROmorphone 2 MG/ML, 1ML IVPush ONE (11:00)
[2018-11-07] MEDS: DEXAMETHASONE 4 MG/ML, 5ML IVPush SCH ×3 (13:32→21:00)
[2018-11-07 13:40] VITALS: BP 91/53
[2018-11-07 19:49] VITALS: BP 97/59
[2018-11-07] MEDS: ENOXAPARIN 40 MG/0.4 ML SQ SCH (20:37)
[2018-11-07] MEDS: TEMAZEPAM 15 MG CAPSULE PO PRN (21:52)
[2018-11-08] MEDS: HYDROmorphone 2 MG/ML, 1ML IVPush PRN ×8 (00:43→23:38)
[2018-11-08 01:10] VITALS: BP 109/68
[2018-11-08] MEDS: DIPHENHYDRAMINE 50 MG/ML, 1ML IVPush PRN ×4 (01:58→20:37)
[2018-11-08] MEDS: KETOROLAC 30 MG/1 ML IVPush SCH ×4 (01:58→20:37)
[2018-11-08] MEDS: SODIUM CHLORIDE 0.9% 1,000 ML IV SCH ×2 (03:22→13:06)
[2018-11-08] MEDS: ONDANSETRON 2MG/ML, 2ML IVPush PRN ×2 (04:04→08:17)
[2018-11-08] MEDS ORDERED: DEXAMETHASONE 4 MG/ML, 1ML ONE (08:09)
[2018-11-08] MEDS: DEXAMETHASONE 4 MG/ML, 5ML IVPush SCH (08:22)
[2018-11-08] MEDS: SENNA/DOCUSATE TABLET PO SCH (08:34)
[2018-11-08] MEDS: DULOXETINE 30 MG CAPSULE.DR PO SCH (08:34)
[2018-11-08] MEDS: predniSONE 5 MG/5 ML ORAL SOL PO SCH (08:34)
[2018-11-08 08:45] VITALS: BP 106/70
[2018-11-08] MEDS: OXYcodone/APAP 7.5/325MG TABLET PO PRN ×2 (11:02→17:48)
[2018-11-08 14:04] VITALS: BP 126/81
[2018-11-08 19:55] VITALS: BP 119/76
[2018-11-08] MEDS: ENOXAPARIN 40 MG/0.4 ML SQ SCH (21:58)
[2018-11-08] MEDS: TEMAZEPAM 15 MG CAPSULE PO PRN (22:28)
[2018-11-09 02:23] VITALS: BP 119/82
[2018-11-09] MEDS: DIPHENHYDRAMINE 50 MG/ML, 1ML IVPush PRN ×4 (02:25→20:41)
[2018-11-09] MEDS: KETOROLAC 30 MG/1 ML IVPush SCH ×4 (02:25→20:41)
[2018-11-09] MEDS: HYDROmorphone 2 MG/ML, 1ML IVPush PRN ×8 (02:25→23:27)
[2018-11-09] MEDS: OXYcodone/APAP 7.5/325MG TABLET PO PRN ×3 (03:50→23:27)
[2018-11-09] MEDS: DULOXETINE 30 MG CAPSULE.DR PO SCH (08:33)
[2018-11-09] MEDS: SENNA/DOCUSATE TABLET PO SCH (08:34)
[2018-11-09] MEDS: predniSONE 5 MG/5 ML ORAL SOL PO SCH (08:34)
[2018-11-09 09:00] VITALS: BP 119/81
[2018-11-09] MEDS: ONDANSETRON 2MG/ML, 2ML IVPush PRN ×2 (10:52→17:50)
[2018-11-09 14:00] VITALS: BP 129/85
[2018-11-09 20:39] VITALS: BP 127/80
[2018-11-09] MEDS: ENOXAPARIN 40 MG/0.4 ML SQ SCH (20:41)
[2018-11-10 02:23] VITALS: BP 112/74
[2018-11-10] MEDS: DIPHENHYDRAMINE 50 MG/ML, 1ML IVPush PRN ×3 (02:25→14:28)
[2018-11-10] MEDS: HYDROmorphone 2 MG/ML, 1ML IVPush PRN ×5 (02:25→15:26)
[2018-11-10] MEDS: KETOROLAC 30 MG/1 ML IVPush SCH ×3 (02:25→14:28)
[2018-11-10] MEDS: ONDANSETRON 2MG/ML, 2ML IVPush PRN ×2 (08:18→15:26)
[2018-11-10] MEDS: DULOXETINE 30 MG CAPSULE.DR PO SCH (08:18)
[2018-11-10] MEDS: predniSONE 5 MG/5 ML ORAL SOL PO SCH (08:18)
[2018-11-10] MEDS: SENNA/DOCUSATE TABLET PO SCH (08:18)
[2018-11-10 08:25] VITALS: BP 130/87
[2018-11-10] MEDS: OXYcodone/APAP 7.5/325MG TABLET PO PRN (09:47)
[2018-11-10 14:30] VITALS: BP 122/87
== END 2018-11-10 16:56 | disposition home or self-care (01) | DRG 74 ==
LOC: ORIP 17:32 → 3NW 18:13
PROVIDERS: ADMIT Internal Medicine; ATTEND Internal Medicine
DX: G50.0 Trigeminal neuralgia (principal); D80.3 Selective deficiency of immunoglobulin G [IgG] subclasses; E86.0 Dehydration; G70.00 Myasthenia gravis without (acute) exacerbation; J32.9 Chronic sinusitis, unspecified; M25.50 Pain in unspecified joint; J01.90 Acute sinusitis, unspecified; Z79.52 Long term (current) use of systemic steroids; Z92.21 Personal history of antineoplastic chemotherapy; Z92.241 Personal history of systemic steroid therapy; Z88.8 Allergy status to other drugs, medicaments and biological substances
CPT/HCPCS: 36415; 80053; 85025; G0378; J1100; J1170; J1650; J1885; J2405; J7512; J1200; J7030

== ENCOUNTER 2018-12-10 18:11 | Inpatient (IN) | payer OTHER ==
[~2018-12-10] VITALS: Ht 180.3 cm; Wt 74.1 kg
[~2018-12-10 18:11] MED LIST changes: +IMMU10VI4 IV
[2018-12-10] MEDS ORDERED: DOCUSATE 100 MG CAPSULE PO PRN (19:00)
[2018-12-10] MEDS ORDERED: ACETAMINOPHEN 325 MG TABLET PO PRN (19:00)
[2018-12-10] MEDS ORDERED: DIPHENHYDRAMINE 50 MG/ML, 1ML IVPush PRN (19:00)
[2018-12-10] MEDS ORDERED: PLEASE ENTER HEIGHT AND WEIGHT MC SCH (19:00)
[2018-12-10 19:36] VITALS: BP 109/75
[2018-12-10] MEDS: SODIUM CHLORIDE 0.9% 1,000 ML IV SCH (20:23)
[2018-12-10] MEDS: ENOXAPARIN 40 MG/0.4 ML SQ SCH (20:24)
[2018-12-10] MEDS: ONDANSETRON 2MG/ML, 2ML IVPush PRN (20:24)
[2018-12-10] MEDS: HYDROmorphone 2 MG/ML, 1ML IVPush PRN ×4 (20:24→23:36)
[2018-12-10 20:27] VITALS: BP 107/75
[2018-12-10] MEDS ORDERED: DEXAMETHASONE 4 MG/ML, 1ML ONE (21:57)
[2018-12-10] MEDS: DEXAMETHASONE 4 MG/ML, 5ML IVPush SCH (22:00)
[2018-12-10] MEDS ORDERED: DIPHENHYDRAMINE 50 MG/ML, 1ML ONE (22:00)
[2018-12-10] MEDS: ACYCLOVIR 200 MG CAPSULE PO SCH (22:07)
[2018-12-10] MEDS: OXYcodone/APAP 7.5/325MG TABLET PO SCH (22:07)
[2018-12-10] MEDS: DIPHENHYDRAMINE 50 MG/ML, 1ML IVPush PRN (22:08)
[2018-12-11 01:45] VITALS: BP 93/56
[2018-12-11] MEDS: HYDROmorphone 2 MG/ML, 1ML IVPush PRN ×7 (02:30→20:56)
[2018-12-11] MEDS: ONDANSETRON 2MG/ML, 2ML IVPush PRN ×4 (02:30→20:54)
[2018-12-11] MEDS: DIPHENHYDRAMINE 50 MG/ML, 1ML IVPush PRN ×4 (04:03→22:37)
[2018-12-11] MEDS: SODIUM CHLORIDE 0.9% 1,000 ML IV SCH ×3 (04:05→19:49)
[2018-12-11 04:16] LABS: BASOPHILS # (AUTO) 0.02 x10^3/uL (0-0.1); BASOPHILS % (AUTO) 0 % (0-1); EOSINOPHILS # (AUTO) 0.28 x10^3/uL (0-0.4); EOSINOPHILS % (AUTO) 3 % (1-7); LYMPHOCYTES # (AUTO) 0.78 x10^3/uL (1-3.4); LYMPHOCYTES % (AUTO) 10 % (22-44); MD NO; MEAN CORPUSCULAR HEMOGLOBIN 29.7 pg (27.0-34.8); MEAN CORPUSCULAR HGB CONC 33.6 g/dL (32.4-35.8); MEAN CORPUSCULAR VOLUME 88.5 fL (80-100); MEAN PLATELET VOLUME 8.7 fL (7.4-10.4); MONOCYTES # (AUTO) 0.07 x10^3/uL (0.2-0.8); MONOCYTES % (AUTO) 1 % (2-9); NEUTROPHILS # (AUTO) 7.05 x10^3/uL (1.8-6.8); NEUTROPHILS % (AUTO) 86 % (42-75); PLATELET COUNT 299 x10^3/uL (130-400); RED BLOOD COUNT 3.47 x10^6/uL (3.82-5.3); RED CELL DISTRIBUTION WIDTH 16.2 % (9.6-15.2)
[2018-12-11 04:27] LABS: CALCIUM 8.1 mg/dL (8.5-10.1); CHLORIDE 114 mmol/L (98-107)
[2018-12-11 04:32] LABS: ALANINE AMINOTRANSFERASE 14 U/L (12-78); ALBUMIN 3.6 g/dL (3.4-5.0); ALKALINE PHOSPHATASE 43 U/L (45-117); BILIRUBIN,TOTAL 0.2 mg/dL (0.2-1.0); CREATININE 0.82 mg/dL (0.55-1.02); TOTAL PROTEIN 6.6 g/dL (6.4-8.2)
[2018-12-11 05:24] LABS: ANION GAP 5 mmol/L (5-15)
[2018-12-11 08:00] VITALS: BP 102/65
[2018-12-11] MEDS ORDERED: DEXAMETHASONE 4 MG/ML, 1ML ONE ×2 (08:27→20:42)
[2018-12-11] MEDS: DULOXETINE 30 MG CAPSULE.DR PO SCH (08:39)
[2018-12-11] MEDS: SENNA/DOCUSATE TABLET PO SCH (08:39)
[2018-12-11] MEDS: ACYCLOVIR 200 MG CAPSULE PO SCH ×2 (08:39→20:53)
[2018-12-11] MEDS: DEXAMETHASONE 4 MG/ML, 5ML IVPush SCH ×2 (08:40→20:55)
[2018-12-11] MEDS: OXYcodone/APAP 7.5/325MG TABLET PO SCH ×3 (08:40→20:53)
[2018-12-11] MEDS ORDERED: HYDROmorphone 1 MG/ML, 1ML IV PRN (09:00)
[2018-12-11] MEDS ORDERED: HYDROmorphone 2 MG/ML, 1ML ONE ×2 (10:35→16:13)
[2018-12-11 13:40] VITALS: BP 131/80
[2018-12-11] MEDS: SUMATRIPTAN 6MG/0.5ML SQ PRN (16:21)
[2018-12-11] MEDS: HYDROmorphone 1 MG/ML, 1ML IV PRN (16:21)
[2018-12-11 19:19] VITALS: BP 118/79
[2018-12-11] MEDS: ENOXAPARIN 40 MG/0.4 ML SQ SCH (19:49)
[2018-12-11] MEDS: POLYETHYLENE GLYCOL 17 GM PACKET PO PRN (20:53)
[2018-12-12] MEDS: HYDROmorphone 2 MG/ML, 1ML IVPush PRN ×9 (00:10→21:16)
[2018-12-12] MEDS ORDERED: HYDROmorphone 2 MG/ML, 1ML ONE ×4 (01:32→22:58)
[2018-12-12 01:40] VITALS: BP 105/68
[2018-12-12] MEDS: ONDANSETRON 2MG/ML, 2ML IVPush PRN ×4 (03:07→21:16)
[2018-12-12] MEDS: SODIUM CHLORIDE 0.9% 1,000 ML IV SCH ×2 (04:06→12:02)
[2018-12-12] MEDS: DIPHENHYDRAMINE 50 MG/ML, 1ML IVPush PRN ×4 (04:56→23:03)
[2018-12-12] MEDS: HYDROmorphone 1 MG/ML, 1ML IV PRN ×3 (04:56→23:04)
[2018-12-12 07:52] VITALS: BP 115/74
[2018-12-12] MEDS: DEXAMETHASONE 4 MG/ML, 5ML IVPush SCH (09:02)
[2018-12-12] MEDS: DULOXETINE 30 MG CAPSULE.DR PO SCH (09:03)
[2018-12-12] MEDS: OXYcodone/APAP 7.5/325MG TABLET PO SCH ×3 (09:03→21:16)
[2018-12-12] MEDS: ACYCLOVIR 200 MG CAPSULE PO SCH ×2 (09:03→21:16)
[2018-12-12] MEDS: SENNA/DOCUSATE TABLET PO SCH (09:03)
[2018-12-12 13:40] VITALS: BP 112/74
[2018-12-12] MEDS: PSEUDOEPHEDRINE 30 MG TABLET PO PRN (16:44)
[2018-12-12 18:49] LABS: RAPID INFLUENZA A Negative (Negative); RAPID INFLUENZA B Negative (Negative)
[2018-12-12 20:00] VITALS: BP 125/81
[2018-12-12] MEDS: ENOXAPARIN 40 MG/0.4 ML SQ SCH (21:34)
[2018-12-12] MEDS: POLYETHYLENE GLYCOL 17 GM PACKET PO PRN (21:34)
[2018-12-13] MEDS: HYDROmorphone 2 MG/ML, 1ML IVPush PRN ×8 (00:24→22:57)
[2018-12-13] MEDS: TEMAZEPAM 15 MG CAPSULE PO PRN ×2 (00:24→21:59)
[2018-12-13 02:08] VITALS: BP 117/75
[2018-12-13] MEDS: SUMATRIPTAN 6MG/0.5ML SQ PRN (02:29)
[2018-12-13] MEDS ORDERED: HYDROmorphone 2 MG/ML, 1ML ONE ×5 (02:32→21:19)
[2018-12-13] MEDS: HYDROmorphone 1 MG/ML, 1ML IV PRN ×2 (02:36→21:23)
[2018-12-13] MEDS: ONDANSETRON 2MG/ML, 2ML IVPush PRN ×4 (03:50→22:58)
[2018-12-13 04:08] LABS: BASOPHILS # (AUTO) 0.02 x10^3/uL (0-0.1); BASOPHILS % (AUTO) 0 % (0-1); EOSINOPHILS # (AUTO) 0.04 x10^3/uL (0-0.4); EOSINOPHILS % (AUTO) 1 % (1-7); LYMPHOCYTES # (AUTO) 1.83 x10^3/uL (1-3.4); LYMPHOCYTES % (AUTO) 34 % (22-44); MD NO; MEAN CORPUSCULAR HGB CONC 33.9 g/dL (32.4-35.8); MEAN CORPUSCULAR VOLUME 88.7 fL (80-100); MEAN PLATELET VOLUME 8.8 fL (7.4-10.4); MONOCYTES # (AUTO) 0.22 x10^3/uL (0.2-0.8); MONOCYTES % (AUTO) 4 % (2-9); NEUTROPHILS # (AUTO) 3.27 x10^3/uL (1.8-6.8); NEUTROPHILS % (AUTO) 61 % (42-75); PLATELET COUNT 280 x10^3/uL (130-400); RED BLOOD COUNT 3.32 x10^6/uL (3.82-5.3); RED CELL DISTRIBUTION WIDTH 16.4 % (9.6-15.2)
[2018-12-13 04:13] LABS: ALANINE AMINOTRANSFERASE 18 U/L (12-78); ALBUMIN 3.6 g/dL (3.4-5.0); ANION GAP 7 mmol/L (5-15); CALCIUM 8.1 mg/dL (8.5-10.1); CHLORIDE 111 mmol/L (98-107); CREATININE 0.77 mg/dL (0.55-1.02)
[2018-12-13 04:15] LABS: ALKALINE PHOSPHATASE 39 U/L (45-117); BILIRUBIN,TOTAL 0.1 mg/dL (0.2-1.0); TOTAL PROTEIN 6.7 g/dL (6.4-8.2)
[2018-12-13] MEDS: DIPHENHYDRAMINE 50 MG/ML, 1ML IVPush PRN ×3 (05:02→22:58)
[2018-12-13 08:00] VITALS: BP 125/75
[2018-12-13] MEDS: DULOXETINE 30 MG CAPSULE.DR PO SCH (08:26)
[2018-12-13] MEDS: ACYCLOVIR 200 MG CAPSULE PO SCH ×2 (08:27→21:23)
[2018-12-13] MEDS: OXYcodone/APAP 7.5/325MG TABLET PO SCH ×3 (08:27→21:23)
[2018-12-13] MEDS: SENNA/DOCUSATE TABLET PO SCH (08:50)
[2018-12-13] MEDS ORDERED: LORazepam 2 MG/ML, 1ML IVPush ONE (09:00)
[2018-12-13] MEDS: PSEUDOEPHEDRINE 30 MG TABLET PO PRN ×2 (11:06→15:54)
[2018-12-13 14:00] VITALS: BP 115/75
[2018-12-13] MEDS ORDERED: POTASSIUM CHLORIDE 20 MEQ TAB.ER.PRT PO ONE (14:00)
[2018-12-13 20:55] VITALS: BP 119/75
[2018-12-13] MEDS: ENOXAPARIN 40 MG/0.4 ML SQ SCH (21:59)
[2018-12-13] MEDS: POLYETHYLENE GLYCOL 17 GM PACKET PO PRN (21:59)
[2018-12-14] MEDS: HYDROmorphone 2 MG/ML, 1ML IVPush PRN ×8 (01:59→22:25)
[2018-12-14 02:02] VITALS: BP 102/64
[2018-12-14] MEDS: SUMATRIPTAN 6MG/0.5ML SQ PRN ×2 (03:05→14:36)
[2018-12-14] MEDS: ONDANSETRON 2MG/ML, 2ML IVPush PRN ×4 (04:42→22:25)
[2018-12-14] MEDS: DIPHENHYDRAMINE 50 MG/ML, 1ML IVPush PRN ×4 (04:42→22:25)
[2018-12-14 07:30] VITALS: BP_SYST 100; BP_SYST 107; BP_DIAS 61; BP_DIAS 68
[2018-12-14] MEDS: SENNA/DOCUSATE TABLET PO SCH (07:53)
[2018-12-14] MEDS: ACYCLOVIR 200 MG CAPSULE PO SCH ×2 (07:53→21:07)
[2018-12-14] MEDS: DULOXETINE 30 MG CAPSULE.DR PO SCH (07:53)
[2018-12-14] MEDS: OXYcodone/APAP 7.5/325MG TABLET PO SCH ×3 (08:54→21:07)
[2018-12-14] MEDS: PSEUDOEPHEDRINE 30 MG TABLET PO PRN (10:45)
[2018-12-14 13:40] VITALS: BP 121/70
[2018-12-14] MEDS: HYDROmorphone 1 MG/ML, 1ML IV PRN (14:20)
[2018-12-14] MEDS ORDERED: POTASSIUM CHLORIDE 20 MEQ TAB.ER.PRT PO ONE (18:30)
[2018-12-14] MEDS: ENOXAPARIN 40 MG/0.4 ML SQ SCH (21:06)
[2018-12-14] MEDS: POLYETHYLENE GLYCOL 17 GM PACKET PO PRN (21:06)
[2018-12-14] MEDS: TEMAZEPAM 15 MG CAPSULE PO PRN (21:07)
[2018-12-14 22:29] VITALS: BP 120/80
[2018-12-15] MEDS: HYDROmorphone 2 MG/ML, 1ML IVPush PRN ×8 (01:26→22:52)
[2018-12-15] MEDS: PSEUDOEPHEDRINE 30 MG TABLET PO PRN ×2 (01:26→18:05)
[2018-12-15] MEDS: SUMATRIPTAN 6MG/0.5ML SQ PRN ×2 (01:55→16:22)
[2018-12-15] MEDS: DIPHENHYDRAMINE 50 MG/ML, 1ML IVPush PRN ×4 (04:17→22:52)
[2018-12-15] MEDS: ONDANSETRON 2MG/ML, 2ML IVPush PRN ×4 (04:17→22:52)
[2018-12-15 04:22] VITALS: BP 125/83
[2018-12-15 04:57] LABS: BASOPHILS # (AUTO) 0.03 x10^3/uL (0-0.1); BASOPHILS % (AUTO) 1 % (0-1); EOSINOPHILS # (AUTO) 0.11 x10^3/uL (0-0.4); EOSINOPHILS % (AUTO) 2 % (1-7); LYMPHOCYTES # (AUTO) 3.02 x10^3/uL (1-3.4); LYMPHOCYTES % (AUTO) 46 % (22-44); MD NO; MEAN CORPUSCULAR HEMOGLOBIN 29.9 pg (27.0-34.8); MEAN CORPUSCULAR HGB CONC 33.8 g/dL (32.4-35.8); MEAN CORPUSCULAR VOLUME 88.2 fL (80-100); MEAN PLATELET VOLUME 8.4 fL (7.4-10.4); MONOCYTES # (AUTO) 0.49 x10^3/uL (0.2-0.8); MONOCYTES % (AUTO) 8 % (2-9); NEUTROPHILS # (AUTO) 2.91 x10^3/uL (1.8-6.8); NEUTROPHILS % (AUTO) 44 % (42-75); PLATELET COUNT 330 x10^3/uL (130-400); RED BLOOD COUNT 3.45 x10^6/uL (3.82-5.3); RED CELL DISTRIBUTION WIDTH 16.4 % (9.6-15.2)
[2018-12-15 05:04] LABS: CHLORIDE 112 mmol/L (98-107)
[2018-12-15 05:09] LABS: ANION GAP 4 mmol/L (5-15); CALCIUM 8.1 mg/dL (8.5-10.1); CREATININE 0.77 mg/dL (0.55-1.02)
[2018-12-15 07:40] VITALS: BP 108/70
[2018-12-15] MEDS: ACYCLOVIR 200 MG CAPSULE PO SCH ×2 (08:43→20:52)
[2018-12-15] MEDS: DULOXETINE 30 MG CAPSULE.DR PO SCH (08:43)
[2018-12-15] MEDS: OXYcodone/APAP 7.5/325MG TABLET PO SCH ×3 (08:43→20:52)
[2018-12-15] MEDS: SENNA/DOCUSATE TABLET PO SCH (08:43)
[2018-12-15 13:55] VITALS: BP 112/75
[2018-12-15 20:37] VITALS: BP 120/77
[2018-12-15] MEDS: POLYETHYLENE GLYCOL 17 GM PACKET PO PRN (20:52)
[2018-12-15] MEDS: ENOXAPARIN 40 MG/0.4 ML SQ SCH (20:53)
[2018-12-16] MEDS: HYDROmorphone 2 MG/ML, 1ML IVPush PRN ×6 (02:12→17:09)
[2018-12-16 02:15] VITALS: BP 101/67
[2018-12-16] MEDS: ONDANSETRON 2MG/ML, 2ML IVPush PRN ×3 (05:07→17:09)
[2018-12-16] MEDS: DIPHENHYDRAMINE 50 MG/ML, 1ML IVPush PRN ×3 (05:07→17:09)
[2018-12-16] MEDS: PSEUDOEPHEDRINE 30 MG TABLET PO PRN ×2 (05:08→11:06)
[2018-12-16 07:36] VITALS: BP 132/83
[2018-12-16] MEDS: SENNA/DOCUSATE TABLET PO SCH (08:17)
[2018-12-16] MEDS: OXYcodone/APAP 7.5/325MG TABLET PO SCH ×2 (08:17→16:27)
[2018-12-16] MEDS: ACYCLOVIR 200 MG CAPSULE PO SCH (08:17)
[2018-12-16] MEDS: DULOXETINE 30 MG CAPSULE.DR PO SCH (08:17)
[2018-12-16 13:40] VITALS: BP 100/58
[2018-12-16] MEDS ORDERED: KETOROLAC 30 MG/1 ML IVPush ONE (16:00)
[2018-12-16] MEDS: SUMATRIPTAN 6MG/0.5ML SQ PRN (16:28)
== END 2018-12-16 18:15 | disposition home or self-care (01) | DRG 74 ==
LOC: 3NW 18:11
PROVIDERS: ADMIT Internal Medicine; ATTEND Internal Medicine
DX: G50.0 Trigeminal neuralgia (principal); D80.3 Selective deficiency of immunoglobulin G [IgG] subclasses; E86.0 Dehydration; J01.90 Acute sinusitis, unspecified; R00.0 Tachycardia, unspecified; Z88.8 Allergy status to other drugs, medicaments and biological substances
CPT/HCPCS: 36415; 80048; 80053; 83735; 84100; 84132; 85025; 87400; G0378; J1100; J1170; J1650; J1885; J2405; J7512; J1200; J2060; J3030; J7030

== ENCOUNTER 2019-01-10 09:00 | Inpatient (IN) | payer OTHER ==
[~2019-01-10] VITALS: Ht 180.3 cm; Wt 81.4 kg
--- NOTE | 2019-01-10 09:21 | NUR ---
LEFT FACIAL NERVE PAIN WORSENING TWO DAYS AGO WITH N/V AND STATES SOME DIPLOPIA
[2019-01-10] MEDS ORDERED: PRED5TAB PO (09:24)
[2019-01-10] MEDS ORDERED: DIPHENHYDRAMINE 50 MG/ML, 1ML IVPush ONE (09:30)
[2019-01-10] MEDS ORDERED: SODIUM CHLORIDE FLUSH 10ML SYR IVF ONE (09:30)
[2019-01-10] MEDS ORDERED: methylPREDNISolone SOD SUCC 125 MG/2 ML IVPush ONE (09:30)
[2019-01-10] MEDS ORDERED: ONDANSETRON 2MG/ML, 2ML IVPush ONE (09:30)
[2019-01-10 09:48] LABS: BASOPHILS # (AUTO) 0.05 x10^3/uL (0-0.1); BASOPHILS % (AUTO) 1 % (0-1); EOSINOPHILS # (AUTO) 0.18 x10^3/uL (0-0.4); EOSINOPHILS % (AUTO) 4 % (1-7); LYMPHOCYTES # (AUTO) 2.07 x10^3/uL (1-3.4); LYMPHOCYTES % (AUTO) 49 % (22-44); MD NO; MEAN CORPUSCULAR VOLUME 87.9 fL (80-100); MEAN PLATELET VOLUME 8.3 fL (7.4-10.4); MONOCYTES # (AUTO) 0.37 x10^3/uL (0.2-0.8); MONOCYTES % (AUTO) 9 % (2-9); NEUTROPHILS # (AUTO) 1.52 x10^3/uL (1.8-6.8); NEUTROPHILS % (AUTO) 36 % (42-75); PLATELET COUNT 313 x10^3/uL (130-400); RED BLOOD COUNT 3.73 x10^6/uL (3.82-5.3); RED CELL DISTRIBUTION WIDTH 16.2 % (9.6-15.2)
[2019-01-10] MEDS ORDERED: ONDANSETRON 2MG/ML, 2ML ONE (09:50)
[2019-01-10] MEDS ORDERED: DIPHENHYDRAMINE 50 MG/ML, 1ML ONE (09:50)
[2019-01-10] MEDS ORDERED: HYDROmorphone 2 MG/ML, 1ML ONE (09:51)
[2019-01-10] MEDS ORDERED: methylPREDNISolone SOD SUCC 125 MG/2 ML ONE (09:51)
[2019-01-10] MEDS: HYDROmorphone 1 MG/ML, 1ML INJ IVPush PRN ×2 (09:54→12:48)
[2019-01-10 10:01] LABS: ALANINE AMINOTRANSFERASE 22 U/L (12-78); ANION GAP 8 mmol/L (5-15); CALCIUM 8.2 mg/dL (8.5-10.1); CHLORIDE 112 mmol/L (98-107); CREATININE 0.79 mg/dL (0.55-1.02)
[2019-01-10 10:04] LABS: ALKALINE PHOSPHATASE 38 U/L (45-117); BILIRUBIN,TOTAL 0.3 mg/dL (0.2-1.0); TOTAL PROTEIN 7.2 g/dL (6.4-8.2)
[2019-01-10 10:07] LABS: HIGH-SENSITIVITY CRP < 0.02 mg/dL (0.02-0.30)
--- NOTE | 2019-01-10 10:11 | NUR ---
MEDICATED FOR LEFT FACIAL PAIN AND NAUSEA PER ORDERS. PT ON PULSE OX, BREATHING EVEN AND UNLABORED. WILL CONTINUE TO MONITOR
[2019-01-10] MEDS ORDERED: SODIUM CHLORIDE 0.9% 1,000 ML IV ONE (10:35)
[2019-01-10] MEDS ORDERED: SODIUM CHLORIDE FLUSH 10ML SYR IVF PRN (11:00)
--- NOTE | 2019-01-10 11:09 | NUR ---
UOB TO BATHROOM, STEADY GAIT. PT STATES FACIAL PAIN 01/07
[2019-01-10 11:29] LABS: HCG UR SG 1.007 (1.003-1.030); MICROSCOPIC AUTO
[2019-01-10 11:30] LABS: CULTURE INDICATED? YES
--- NOTE | 2019-01-10 12:43 | NUR ---
PT HAS RETURNING LEFT FACE PAIN. TO BE MEDICATED FOR SAME. REPORT TO TRAVON NUNN. PT TO BE TRANSPORTED
--- NOTE | 2019-01-10 12:56 | NUR ---
3 FLOOR NURSE MADE AWARE OF ADDITIONAL DILAUDID GIVEN PRIOR TO GOING TO FLOOR
[2019-01-10 13:05] VITALS: BP 97/62
[2019-01-10 13:10] VITALS: BP 97/62
[2019-01-10] MEDS ORDERED: CALCIUM CARBONATE 500 MG TAB.CHEW PO PRN (14:30)
[2019-01-10] MEDS ORDERED: BUTALB/APAP/CAFFEINE 50MG/325MG/40MG PO PRN (14:30)
[2019-01-10] MEDS: HYDROmorphone 2 MG/ML, 1ML IVPush PRN ×6 (14:48→23:26)
[2019-01-10] MEDS: KETOROLAC 30 MG/1 ML IVPush SCH ×2 (14:50→20:34)
[2019-01-10] MEDS: ENOXAPARIN 40 MG/0.4 ML SQ SCH (14:50)
[2019-01-10] MEDS: ONDANSETRON 2MG/ML, 2ML IVPush PRN ×2 (15:00→19:26)
[2019-01-10] MEDS ORDERED: POLYETHYLENE GLYCOL 17 GM PACKET PO PRN (15:00)
[2019-01-10] MEDS ORDERED: DULOXETINE 30 MG CAPSULE.DR PO SCH (15:00)
[2019-01-10] MEDS ORDERED: BISACODYL 10 MG SUPP PR PRN (15:00)
[2019-01-10] MEDS: DIPHENHYDRAMINE 50 MG/ML, 1ML IVPush PRN ×2 (15:00→20:33)
[2019-01-10] MEDS: methylPREDNISolone SOD SUCC 125 MG/2 ML IVPush SCH ×2 (16:21→23:26)
[2019-01-10] MEDS: OXYcodone/APAP 7.5/325MG TABLET PO SCH ×2 (16:21→21:05)
[2019-01-10] MEDS ORDERED: ACETAMINOPHEN MC SCH (17:30)
[2019-01-10] MEDS ORDERED: CAFFEINE MC SCH (17:30)
[2019-01-10] MEDS ORDERED: BUTALBITAL MC SCH (17:30)
[2019-01-10] MEDS: SUMATRIPTAN 25 MG TABLET PO PRN (17:42)
[2019-01-10] MEDS: SODIUM CHLORIDE 0.9% 1,000 ML IV SCH (17:42)
[2019-01-10 20:20] VITALS: BP 120/81
[2019-01-10] MEDS: ACYCLOVIR 400 MG TABLET PO SCH (20:56)
[2019-01-10] MEDS: CALCIUM/VITAMIN D3 250-125 TABLET PO SCH (20:56)
[2019-01-10] MEDS: DULOXETINE 30 MG CAPSULE.DR PO SCH (20:56)
[2019-01-10] MEDS: LACTULOSE 10 GM/15 ML UDC PO SCH (20:56)
[2019-01-11] MEDS: SODIUM CHLORIDE 0.9% 1,000 ML IV SCH ×2 (01:16→09:04)
[2019-01-11 01:26] VITALS: BP 102/63
[2019-01-11] MEDS ORDERED: SUMATRIPTAN 50 MG TABLET ONE ×2 (02:22→12:50)
[2019-01-11] MEDS: DIPHENHYDRAMINE 50 MG/ML, 1ML IVPush PRN ×5 (02:33→23:56)
[2019-01-11] MEDS: ONDANSETRON 2MG/ML, 2ML IVPush PRN ×5 (02:34→23:56)
[2019-01-11] MEDS: KETOROLAC 30 MG/1 ML IVPush SCH ×4 (02:34→21:06)
[2019-01-11] MEDS: SUMATRIPTAN 25 MG TABLET PO PRN ×2 (02:34→13:00)
[2019-01-11] MEDS: HYDROmorphone 2 MG/ML, 1ML IVPush PRN ×9 (02:34→23:56)
[2019-01-11] MEDS: methylPREDNISolone SOD SUCC 125 MG/2 ML IVPush SCH ×2 (05:32→11:35)
[2019-01-11 06:25] LABS: BASOPHILS % (AUTO) 0 % (0-1); EOSINOPHILS # (AUTO) 0.08 x10^3/uL (0-0.4); EOSINOPHILS % (AUTO) 1 % (1-7); LYMPHOCYTES # (AUTO) 1.23 x10^3/uL (1-3.4); LYMPHOCYTES % (AUTO) 17 % (22-44); MD NO; MEAN CORPUSCULAR HEMOGLOBIN 30.3 pg (27.0-34.8); MEAN CORPUSCULAR HGB CONC 33.9 g/dL (32.4-35.8); MEAN CORPUSCULAR VOLUME 89.4 fL (80-100); MEAN PLATELET VOLUME 8.4 fL (7.4-10.4); MONOCYTES # (AUTO) 0.31 x10^3/uL (0.2-0.8); MONOCYTES % (AUTO) 4 % (2-9); NEUTROPHILS # (AUTO) 5.72 x10^3/uL (1.8-6.8); NEUTROPHILS % (AUTO) 78 % (42-75); PLATELET COUNT 328 x10^3/uL (130-400); RED BLOOD COUNT 3.28 x10^6/uL (3.82-5.3); RED CELL DISTRIBUTION WIDTH 16.5 % (9.6-15.2)
[2019-01-11 07:24] LABS: ALANINE AMINOTRANSFERASE 21 U/L (12-78); ALBUMIN 3.6 g/dL (3.4-5.0); ANION GAP 5 mmol/L (5-15); CHLORIDE 116 mmol/L (98-107); CREATININE 0.82 mg/dL (0.55-1.02)
[2019-01-11 07:26] LABS: ALKALINE PHOSPHATASE 35 U/L (45-117); BILIRUBIN,TOTAL 0.2 mg/dL (0.2-1.0); TOTAL PROTEIN 6.5 g/dL (6.4-8.2)
[2019-01-11 08:00] VITALS: BP 108/69
[2019-01-11] MEDS: ACYCLOVIR 400 MG TABLET PO SCH ×2 (08:33→21:04)
[2019-01-11] MEDS: CALCIUM/VITAMIN D3 250-125 TABLET PO SCH ×2 (08:33→21:05)
[2019-01-11] MEDS: LACTULOSE 10 GM/15 ML UDC PO SCH ×2 (09:00→21:00)
[2019-01-11] MEDS: OXYcodone/APAP 7.5/325MG TABLET PO SCH ×3 (09:00→21:04)
[2019-01-11] MEDS: SENNA/DOCUSATE TABLET PO SCH (09:00)
[2019-01-11 14:02] VITALS: BP 102/74
[2019-01-11] MEDS: ENOXAPARIN 40 MG/0.4 ML SQ SCH (14:52)
[2019-01-11 17:15] VITALS: BP 102/74
[2019-01-11 17:16] VITALS: BP 102/74
[2019-01-11 19:12] VITALS: BP 118/76
[2019-01-11] MEDS: DULOXETINE 30 MG CAPSULE.DR PO SCH (21:04)
[2019-01-12 01:22] VITALS: BP 120/79
[2019-01-12] MEDS: KETOROLAC 30 MG/1 ML IVPush SCH ×4 (02:57→20:59)
[2019-01-12] MEDS: HYDROmorphone 2 MG/ML, 1ML IVPush PRN ×8 (02:57→22:33)
[2019-01-12] MEDS: DIPHENHYDRAMINE 50 MG/ML, 1ML IVPush PRN ×5 (04:27→22:32)
[2019-01-12] MEDS: ONDANSETRON 2MG/ML, 2ML IVPush PRN ×2 (04:27→22:51)
[2019-01-12] MEDS: LACTULOSE 10 GM/15 ML UDC PO SCH ×2 (07:51→21:00)
[2019-01-12] MEDS: SENNA/DOCUSATE TABLET PO SCH (07:53)
[2019-01-12] MEDS: ACYCLOVIR 400 MG TABLET PO SCH ×2 (07:53→21:00)
[2019-01-12] MEDS: CALCIUM/VITAMIN D3 250-125 TABLET PO SCH ×2 (07:53→21:00)
[2019-01-12 08:00] VITALS: BP 110/68
[2019-01-12] MEDS: OXYcodone/APAP 7.5/325MG TABLET PO SCH ×2 (09:00→17:24)
[2019-01-12] MEDS: ENOXAPARIN 40 MG/0.4 ML SQ SCH (15:13)
[2019-01-12 18:55] VITALS: BP 110/67
[2019-01-12] MEDS: DULOXETINE 30 MG CAPSULE.DR PO SCH (20:59)
[2019-01-13] MEDS: OXYcodone/APAP 7.5/325MG TABLET PO SCH ×2 (01:44→11:09)
[2019-01-13] MEDS: DIPHENHYDRAMINE 50 MG/ML, 1ML IVPush PRN ×2 (02:46→09:31)
[2019-01-13] MEDS: HYDROmorphone 2 MG/ML, 1ML IVPush PRN ×2 (02:46→09:31)
[2019-01-13 02:47] VITALS: BP 116/75
[2019-01-13] MEDS: KETOROLAC 30 MG/1 ML IVPush SCH ×2 (02:54→08:33)
[2019-01-13 07:06] VITALS: BP 117/77
[2019-01-13] MEDS: LACTULOSE 10 GM/15 ML UDC PO SCH (08:14)
[2019-01-13] MEDS: CALCIUM/VITAMIN D3 250-125 TABLET PO SCH (08:33)
[2019-01-13] MEDS: SENNA/DOCUSATE TABLET PO SCH (08:33)
[2019-01-13] MEDS: ACYCLOVIR 400 MG TABLET PO SCH (08:34)
[2019-01-13] MEDS ORDERED: PRED5TAB PO (09:57)
== END 2019-01-13 12:00 | disposition home or self-care (01) | DRG 57 ==
LOC: ED 09:45 → EDIP 10:35 → 3NE 12:54 → DCLOUNGE 01-13 11:48
PROVIDERS: ADMIT Internal Medicine; ATTEND Internal Medicine
DX: G70.00 Myasthenia gravis without (acute) exacerbation (principal); D80.3 Selective deficiency of immunoglobulin G [IgG] subclasses; M35.9 Systemic involvement of connective tissue, unspecified; G50.0 Trigeminal neuralgia; D63.8 Anemia in other chronic diseases classified elsewhere; J01.90 Acute sinusitis, unspecified; J32.9 Chronic sinusitis, unspecified; M25.50 Pain in unspecified joint; G43.909 Migraine, unspecified, not intractable, without status migrainosus; G89.29 Other chronic pain; Z51.5 Encounter for palliative care; Z79.52 Long term (current) use of systemic steroids; Z92.241 Personal history of systemic steroid therapy
CPT/HCPCS: 36415; 80053; 81001; 81025; 85025; 85651; 86141; 87086; 96374; 96375; 96376; 99285; G0378; J1170; J1650; J1885; J2405; J1200; J2930; J7030; J7512

== ENCOUNTER 2019-04-17 07:20 | Outpatient (CLI) | payer OTHER ==
[~2019-04-17] VITALS: Ht 180.3 cm; Wt 85.1 kg
[2019-04-17 07:35] VITALS: BP 114/80
[2019-04-17] MEDS ORDERED: HYDR200T72 PO (07:35)
[2019-04-17] MEDS ORDERED: IMMUNE GLOBULIN 200 ML IV ONE (08:00)
[2019-04-17] MEDS ORDERED: DIPHENHYDRAMINE 25 MG CAPSULE PO ONE (08:00)
[2019-04-17] MEDS ORDERED: ACETAMINOPHEN 500 MG TABLET PO ONE ×2 (08:00)
[2019-04-17] MEDS ORDERED: DIPHENHYDRAMINE 50 MG/ML, 1ML IVPush ONE (08:00)
[2019-04-17 08:24] LABS: BASOPHILS # (AUTO) 0.05 x10^3/uL (0-0.1); BASOPHILS % (AUTO) 1 % (0-1); EOSINOPHILS # (AUTO) 0.29 x10^3/uL (0-0.4); EOSINOPHILS % (AUTO) 4 % (1-7); LYMPHOCYTES # (AUTO) 2.91 x10^3/uL (1-3.4); LYMPHOCYTES % (AUTO) 39 % (22-44); MD NO; MEAN CORPUSCULAR HEMOGLOBIN 28.9 pg (27.0-34.8); MEAN CORPUSCULAR HGB CONC 31.9 g/dL (32.4-35.8); MEAN CORPUSCULAR VOLUME 90.6 fL (80-100); MONOCYTES # (AUTO) 0.66 x10^3/uL (0.2-0.8); MONOCYTES % (AUTO) 9 % (2-9); NEUTROPHILS % (AUTO) 47 % (42-75); PLATELET COUNT 318 x10^3/uL (130-400); RED BLOOD COUNT 3.18 x10^6/uL (3.82-5.3); RED CELL DISTRIBUTION WIDTH 14.9 % (9.6-15.2)
== END 2019-04-17 23:59 | disposition home or self-care (01) ==
LOC: INFUSION 07:20
PROVIDERS: ATTEND Internal Medicine Infectious Disease
DX: D83.9 Common variable immunodeficiency, unspecified (principal)
CPT/HCPCS: 36415; 36591; 85025; 96365; 96366; 96375; J1200; J1561

== ENCOUNTER 2019-05-15 08:57 | Outpatient (CLI) | payer OTHER ==
[~2019-05-15] VITALS: Ht 180.3 cm; Wt 87.0 kg
[2019-05-15 09:00] VITALS: BP 128/69
== END 2019-05-15 23:59 | disposition home or self-care (01) ==
LOC: INFUSION 08:57
PROVIDERS: ATTEND Internal Medicine Infectious Disease
DX: D83.9 Common variable immunodeficiency, unspecified (principal)
CPT/HCPCS: 96365; 96366; 96375; J1200; J1561

== ENCOUNTER 2019-08-07 07:29 | Outpatient (CLI) | payer OTHER ==
[~2019-08-07] VITALS: Ht 180.3 cm; Wt 92.7 kg
[~2019-08-07 07:29] MED LIST changes: +HYDR200T72 PO; +INDO25CA22 PO; -INDO25CA5 PO; -PRED1TAB PO; +PRED1TAB19 PO
[2019-08-07 07:30] VITALS: BP 120/85
[2019-08-07] MEDS ORDERED: IMMUNE GLOBULIN 200 ML IV ONE (08:00)
[2019-08-07] MEDS ORDERED: ACETAMINOPHEN 500 MG TABLET PO ONE ×2 (08:00)
[2019-08-07] MEDS ORDERED: DIPHENHYDRAMINE 50 MG/ML, 1ML IVPush ONE (08:00)
[2019-08-07] MEDS ORDERED: ONDANSETRON 2MG/ML, 2ML ONE (08:59)
[2019-08-07] MEDS ORDERED: ONDANSETRON 2MG/ML, 2ML IVPush ONE (09:00)
== END 2019-08-07 23:59 | disposition home or self-care (01) ==
LOC: INFUSION 07:29
PROVIDERS: ATTEND Internal Medicine Infectious Disease
DX: D83.9 Common variable immunodeficiency, unspecified (principal); G43.909 Migraine, unspecified, not intractable, without status migrainosus; Z79.52 Long term (current) use of systemic steroids
CPT/HCPCS: 96365; 96366; 96375; J1200; J1561; J2405

== ENCOUNTER 2019-08-11 23:11 | Emergency (ER) | payer OTHER ==
[~2019-08-11] VITALS: Ht 180.3 cm; Wt 92.7 kg
[2019-08-12] MEDS ORDERED: ONDANSETRON 2MG/ML, 2ML IVPush ONE
[2019-08-12] MEDS ORDERED: DIPHENHYDRAMINE 50 MG/ML, 1ML IVPush ONE
[2019-08-12] MEDS ORDERED: KETOROLAC 30 MG/1 ML IVPush ONE
[2019-08-12] MEDS ORDERED: KETOROLAC 30 MG/1 ML ONE (00:06)
[2019-08-12] MEDS ORDERED: DIPHENHYDRAMINE 50 MG/ML, 1ML ONE (00:06)
[2019-08-12] MEDS ORDERED: HYDROmorphone 1 MG/ML, 1ML VIAL ONE ×2 (00:06→00:56)
[2019-08-12] MEDS ORDERED: ONDANSETRON 2MG/ML, 2ML ONE (00:06)
[2019-08-12] MEDS: HYDROmorphone 2 MG/ML, 1ML IVPush PRN ×2 (00:15→01:05)
[2019-08-12 00:16] VITALS: BP 131/87
--- NOTE | 2019-08-12 00:22 | NUR ---
REPORT FROM ALENA ASSUMED CARE OF PT AT THIS TIME, IN NAD AT THIS TIME
--- NOTE | 2019-08-12 00:27 | NUR ---
PT HERE FOR AUTOIMMUNE PAIN IN HER FACE. PT REPORTING HOME MEDS NOT WORKING. PT REQUESTING DILUDID 2MG, BENADRY TO HELP ALLEVIATE HEY PAIN. PT REQUESTING ALSO PORT BE ACCESSED SO THAT THE MEDICINE WORKS MORE EFFICIENTLY AND DOES NOT NEED TO BE DILUTED. PT MEDICATED PER EMAR AND PORT ACCESSED WITH STERILE TECHNIQUE PER POLICY. PT REPORTING PAIN IMPROVEMENT AFTER MEDICATIONS GIVEN. PT DID REQUEST DILUDID 2ND MED PUSHED SO THAT SHE CAN BE GIVEN RELIEF SOON POSSIBLE. PT ALSO ASKED IF SHE HAD A REPEAT DILUDID DOSE. RN LET HER KNOW WE WOULD SEE HOW THIS ONE HELPS HER AND [place] AT THAT TIME IF HER PAIN HAS NOT RESOLVED. MD GAVIN MADE AWARE OF CONCERNING REMARKS.
--- NOTE | 2019-08-12 00:27 | NUR ---
REPORT TO JOSSIE NUNN
== END 2019-08-12 01:06 | disposition home or self-care (01) ==
LOC: ED 08-12 00:50
DX: G50.0 Trigeminal neuralgia (principal); R11.2 Nausea with vomiting, unspecified; G43.909 Migraine, unspecified, not intractable, without status migrainosus; Z90.89 Acquired absence of other organs
CPT/HCPCS: 96374; 96375; 96376; 99283; J1170; J1200; J1885; J2405

== ENCOUNTER → 2019-09-08 | Outpatient (CLI) | payer OTHER ==
[~2019-09-08] VITALS: Ht 180.3 cm; Wt 91.4 kg
[~2019-09-08] MED LIST changes: +ACETAMINOPHEN 500 MG TABLET PO ONE; +DIPHENHYDRAMINE 50 MG/ML, 1ML IVPush ONE; +IMMUNE GLOBULIN 200 ML IV ONE; +ONDANSETRON 2MG/ML, 2ML IVPush ONE
[2019-09-08 08:20] VITALS: BP 128/83
== END | disposition home or self-care (01) ==
LOC: INFUSION 08:18
PROVIDERS: ATTEND Internal Medicine Infectious Disease
DX: D83.9 Common variable immunodeficiency, unspecified (principal); G43.909 Migraine, unspecified, not intractable, without status migrainosus; Z79.52 Long term (current) use of systemic steroids
CPT/HCPCS: 96365; 96366; 96375; J1200; J1561; J2405

== ENCOUNTER 2019-09-26 20:09 | Emergency (ER) | payer OTHER ==
[~2019-09-26] VITALS: Ht 180.3 cm; Wt 90.4 kg
[~2019-09-26 20:09] MED LIST changes: -ACETAMINOPHEN 500 MG TABLET PO ONE; -DIPHENHYDRAMINE 50 MG/ML, 1ML IVPush ONE; -IMMUNE GLOBULIN 200 ML IV ONE; -ONDANSETRON 2MG/ML, 2ML IVPush ONE
[2019-09-26] MEDS ORDERED: SODIUM CHLORIDE FLUSH 10ML SYR IVF ONE (20:30)
[2019-09-26 21:38] LABS: ALANINE AMINOTRANSFERASE 71 U/L (12-78); ALBUMIN 4.4 g/dL (3.4-5.0); ANION GAP 7 mmol/L (5-15); CALCIUM 9.2 mg/dL (8.5-10.1); CHLORIDE 113 mmol/L (98-107); CREATININE 0.82 mg/dL (0.55-1.02)
[2019-09-26 21:40] LABS: BASOPHILS # (AUTO) 0.04 x10^3/uL (0-0.1); BASOPHILS % (AUTO) 1 % (0-1); EOSINOPHILS % (AUTO) 2 % (1-7); LYMPHOCYTES % (AUTO) 38 % (22-44); MD NO; MEAN CORPUSCULAR HEMOGLOBIN 29.2 pg (27.0-34.8); MEAN CORPUSCULAR HGB CONC 32.3 g/dL (32.4-35.8); MEAN CORPUSCULAR VOLUME 90.3 fL (80-100); MEAN PLATELET VOLUME 8.4 fL (7.4-10.4); MONOCYTES # (AUTO) 0.54 x10^3/uL (0.2-0.8); MONOCYTES % (AUTO) 9 % (2-9); NEUTROPHILS # (AUTO) 3.17 x10^3/uL (1.8-6.8); NEUTROPHILS % (AUTO) 51 % (42-75); PLATELET COUNT 376 x10^3/uL (130-400); RED CELL DISTRIBUTION WIDTH 13.8 % (9.6-15.2)
[2019-09-26 21:42] LABS: ALKALINE PHOSPHATASE 55 U/L (45-117); BILIRUBIN,TOTAL 0.3 mg/dL (0.2-1.0)
[2019-09-26] MEDS ORDERED: SODIUM CHLORIDE 0.9% 1,000ML IVBOLUS ONE (22:30)
[2019-09-26] MEDS ORDERED: ONDANSETRON 2MG/ML, 2ML IVPush ONE (22:30)
[2019-09-26] MEDS ORDERED: DEXAMETHASONE 4 MG/ML, 1ML IVPush ONE (22:30)
[2019-09-26] MEDS ORDERED: DEXAMETHASONE 4 MG/ML, 5ML ONE (22:33)
[2019-09-26] MEDS ORDERED: ONDANSETRON 2MG/ML, 2ML ONE (22:33)
[2019-09-26] MEDS ORDERED: HYDROmorphone 2 MG/ML, 1ML ONE ×2 (22:33→23:40)
[2019-09-26] MEDS: HYDROmorphone 2 MG/ML, 1ML IVPush PRN ×2 (22:42→23:44)
[2019-09-26] MEDS ORDERED: DIPHENHYDRAMINE 25 MG CAPSULE PO ONE (23:00)
[2019-09-26] MEDS ORDERED: KETOROLAC 30 MG/1 ML IVPush ONE (23:00)
[2019-09-26] MEDS ORDERED: KETOROLAC 30 MG/1 ML ONE (23:26)
[2019-09-26] MEDS ORDERED: DIPHENHYDRAMINE 25 MG CAPSULE ONE (23:26)
[2019-09-26 23:29] VITALS: BP 115/75
--- NOTE | 2019-09-26 23:33 | NUR ---
PT PORT ACCESSED. MEDICATED PER EMAR. PTS STILL WITH COMPLAINTS OF PAIN AND REQUESTING MORE PAIN MEDS.
[2019-09-26] MEDS ORDERED: DIPHENHYDRAMINE 50 MG/ML, 1ML ONE (23:40)
[2019-09-27] MEDS ORDERED: DIPHENHYDRAMINE 50 MG/ML, 1ML IVPush ONE
[2019-09-27] MEDS ORDERED: HYDROmorphone 2 MG/ML, 1ML ONE (00:27)
[2019-09-27] MEDS ORDERED: HYDROmorphone 2 MG/ML, 1ML IVPush ONE (00:30)
== END 2019-09-27 00:46 | disposition home or self-care (01) ==
LOC: ED 21:51
DX: R11.2 Nausea with vomiting, unspecified (principal); R19.7 Diarrhea, unspecified; E86.0 Dehydration; M79.10 Myalgia, unspecified site; G70.00 Myasthenia gravis without (acute) exacerbation
CPT/HCPCS: 36415; 80053; 84703; 85025; 96361; 96374; 96375; 96376; 99283; J1100; J1170; J1200; J1885; J2405; J7030

== ENCOUNTER 2019-09-28 14:34 | Emergency (ER) | payer OTHER ==
[~2019-09-28] VITALS: Ht 180.3 cm; Wt 91.1 kg
--- NOTE | 2019-09-28 14:58 | NUR ---
PT TO ROOM FROM LOBBY
--- NOTE | 2019-09-28 15:01 | NUR ---
PT GIVEN GOWN AND ASKED TO CHANGE.
--- NOTE | 2019-09-28 15:07 | NUR ---
34 Y/O FEMALE PRESENTS TO ED WITH C/O FACE NERUALGIA. PT STATES "I HAVE NEURALGIA IN MY FACE ON THE LEFT SIDE. I WAS HERE SATURDAY FOR THE SAME THING. THE MEDICATIONS THEY GAVE ME HELPED FOR ABOUT 24 HOURS. THE LAST 24 HOURS HAS BEEN REALLY PAINFUL AND NOTHING IS HELPING. ON SATURDAY I GOT TORADOL AND DILAUDID. I HAVE A DR APPT TO GET A BLOCK. I JUST NEED MORE HELP TO MAKE IT TO MY APPT." SIGNIFICANT OTHER BEDSIDE. NO C/O TRAUMA, SYNCOPE, CP, SOB. PT PLACED ON CON TPULSE OX, NIBP.
--- NOTE | 2019-09-28 15:30 | NUR ---
PT RESTING ON [employer]. ABIMAELS. NADN. CALL LIGHT WITHIN REACH. NO NEEDS REQUESTED AT THIS TIME.
[2019-09-28] MEDS ORDERED: SODIUM CHLORIDE 0.9% 1,000 ML IV ONE (16:02)
[2019-09-28] MEDS ORDERED: DIPHENHYDRAMINE 50 MG/ML, 1ML ONE (16:19)
[2019-09-28] MEDS ORDERED: DEXAMETHASONE 4 MG/ML, 5ML ONE (16:20)
[2019-09-28] MEDS ORDERED: HYDROmorphone 2 MG/ML, 1ML ONE ×3 (16:20→19:26)
[2019-09-28] MEDS ORDERED: KETOROLAC 30 MG/1 ML ONE (16:20)
[2019-09-28] MEDS ORDERED: HYDROmorphone 1 MG/ML, 1ML INJ IV ONE (16:30)
[2019-09-28] MEDS ORDERED: KETOROLAC 30 MG/1 ML IVPush ONE (16:30)
[2019-09-28] MEDS ORDERED: DEXAMETHASONE 4 MG/ML, 5ML IVPush ONE (16:30)
[2019-09-28] MEDS ORDERED: SODIUM CHLORIDE 0.9% 1,000ML IVBOLUS ONE (16:30)
[2019-09-28] MEDS ORDERED: DIPHENHYDRAMINE 50 MG/ML, 1ML IVPush ONE (16:30)
[2019-09-28] MEDS ORDERED: SODIUM CHLORIDE FLUSH 10ML SYR IVF ONE (16:30)
[2019-09-28 16:56] LABS: BASOPHILS # (AUTO) 0.05 x10^3/uL (0-0.1); BASOPHILS % (AUTO) 1 % (0-1); EOSINOPHILS # (AUTO) 0.07 x10^3/uL (0-0.4); EOSINOPHILS % (AUTO) 1 % (1-7); LYMPHOCYTES # (AUTO) 1.83 x10^3/uL (1-3.4); LYMPHOCYTES % (AUTO) 32 % (22-44); MD NO; MEAN CORPUSCULAR HEMOGLOBIN 29.4 pg (27.0-34.8); MEAN CORPUSCULAR HGB CONC 32.8 g/dL (32.4-35.8); MEAN CORPUSCULAR VOLUME 89.6 fL (80-100); MEAN PLATELET VOLUME 8.6 fL (7.4-10.4); MONOCYTES # (AUTO) 0.36 x10^3/uL (0.2-0.8); MONOCYTES % (AUTO) 6 % (2-9); NEUTROPHILS # (AUTO) 3.41 x10^3/uL (1.8-6.8); NEUTROPHILS % (AUTO) 60 % (42-75); PLATELET COUNT 356 x10^3/uL (130-400); RED BLOOD COUNT 3.91 x10^6/uL (3.82-5.3)
[2019-09-28 17:03] LABS: ALANINE AMINOTRANSFERASE 55 U/L (12-78); ALBUMIN 3.8 g/dL (3.4-5.0); ANION GAP 7 mmol/L (5-15); CALCIUM 8.2 mg/dL (8.5-10.1); CHLORIDE 114 mmol/L (98-107); CREATININE 0.76 mg/dL (0.55-1.02)
[2019-09-28 17:06] LABS: ALKALINE PHOSPHATASE 51 U/L (45-117); BILIRUBIN,TOTAL 0.2 mg/dL (0.2-1.0)
--- NOTE | 2019-09-28 17:29 | NUR ---
LATE ENTRY FOR 1630: PT RESTING ON GURNEY. PORT ACCESSED. 20 G 0.75 NEEDLE. BLOOD OBTAINED. PT TOLERATED WITH NO COMPLICATIONS. ODETTE
[2019-09-28] MEDS ORDERED: ONDANSETRON 2MG/ML, 2ML IVPush ONE (18:30)
[2019-09-28] MEDS ORDERED: ONDANSETRON 2MG/ML, 2ML ONE (18:38)
[2019-09-28] MEDS: HYDROmorphone 2 MG/ML, 1ML IVPush PRN ×2 (18:43→19:29)
[2019-09-28 19:30] VITALS: BP 126/79
--- NOTE | 2019-09-28 19:30 | NUR ---
LATE ENTRY FOR 1830 PT RESTING ON [employer]. SIGNIFICANT OTHER BEDSIDE. NO NEEDS REQUESTED AT THIS TIME.
--- NOTE | 2019-09-28 19:31 | NUR ---
PT RESTING ON GURNEY. PER EDMD, D/C POST IVF. NADN. PT VERBALIZED UNDERSTANDING REGARDING POC. NO OTHER NEEDS REQUESTED AT THIS TIME.
--- NOTE | 2019-09-28 19:31 | NUR ---
BEDSIDE REPORT TO ARLINE SANTANA.
--- NOTE | 2019-09-28 20:02 | NUR ---
Received report and assumed patient care. Patient is alert, oriented and answers questions clearly and concisely. Discharge orders placed and patient agreeable. Patient detached from fluids and assisted to bathroom by significant other. Patient has about 200mL NS. Then will hep lock central line and discharge.
== END 2019-09-28 20:23 | disposition home or self-care (01) ==
LOC: ED 20:17
DX: R51 Headache (principal); M79.2 Neuralgia and neuritis, unspecified; R11.2 Nausea with vomiting, unspecified; R20.2 Paresthesia of skin
CPT/HCPCS: 36415; 80053; 85025; 96361; 96374; 96375; 96376; 99283; J1100; J1170; J1200; J1885; J2405; J7030

== ENCOUNTER 2019-10-06 07:58 | Outpatient (CLI) | payer OTHER ==
[~2019-10-06] VITALS: Ht 180.3 cm; Wt 91.8 kg
[~2019-10-06 07:58] MED LIST changes: +HYDR-2995 PO; -HYDR10TA4 PO
[2019-10-06 08:25] VITALS: BP 129/86
[2019-10-06] MEDS ORDERED: ONDANSETRON 2MG/ML, 2ML IV PRN (09:00)
[2019-10-06] MEDS ORDERED: DIPHENHYDRAMINE 50 MG/ML, 1ML IVPush ONE (09:00)
[2019-10-06] MEDS ORDERED: ACETAMINOPHEN 500 MG TABLET PO ONE (09:00)
[2019-10-06] MEDS ORDERED: IMMUNE GLOBULIN IV ONE (09:00)
[2019-10-19] MEDS ORDERED: TRAZ-175 PO (16:19)
== END 2019-10-06 23:59 | disposition home or self-care (01) ==
LOC: INFUSION 07:58
PROVIDERS: ATTEND Internal Medicine Infectious Disease
DX: D83.9 Common variable immunodeficiency, unspecified (principal); G43.909 Migraine, unspecified, not intractable, without status migrainosus; Z79.52 Long term (current) use of systemic steroids
CPT/HCPCS: 96365; 96366; 96375; J1200; J1561; J2405

== ENCOUNTER 2019-10-19 15:08 | Emergency (ER) | payer OTHER ==
[~2019-10-19] VITALS: Ht 180.3 cm; Wt 90.5 kg
[~2019-10-19 15:08] MED LIST changes: -HYDR-2995 PO; +HYDR10TA4 PO
[2019-10-19] MEDS ORDERED: DIPHENHYDRAMINE 50 MG/ML, 1ML ONE (15:44)
[2019-10-19] MEDS ORDERED: HYDROmorphone 2 MG/ML, 1ML ONE (15:45)
[2019-10-19] MEDS ORDERED: DEXAMETHASONE 4 MG/ML, 1ML ONE (15:45)
[2019-10-19] MEDS ORDERED: METOCLOPRAMIDE 5 MG/ML, 2ML ONE (15:45)
[2019-10-19] MEDS ORDERED: KETOROLAC 30 MG/1 ML ONE (15:45)
[2019-10-19] MEDS ORDERED: METOCLOPRAMIDE 5 MG/ML, 2ML IVPush ONE (16:00)
[2019-10-19] MEDS ORDERED: KETOROLAC 30 MG/1 ML IVPush ONE (16:00)
[2019-10-19] MEDS ORDERED: DIPHENHYDRAMINE 50 MG/ML, 1ML IVPush ONE (16:00)
[2019-10-19] MEDS ORDERED: HYDROmorphone 1 MG/ML, 1ML INJ IV ONE (16:00)
[2019-10-19] MEDS ORDERED: DEXAMETHASONE 4 MG/ML, 1ML IVPush ONE (16:00)
[2019-10-19] MEDS ORDERED: TRAZ-137 PO (16:19)
[2019-10-19] MEDS ORDERED: GABA300C10 PO (16:19)
[2019-10-19] MEDS ORDERED: PRED1TAB19 PO (16:19)
[2019-10-19] MEDS ORDERED: FIORINAL (16:21)
[2019-10-19] MEDS ORDERED: ONDANSETRON 2MG/ML, 2ML ONE (16:26)
[2019-10-19] MEDS ORDERED: ONDANSETRON ODT 4 MG PO ONE (16:30)
[2019-10-19] MEDS ORDERED: ONDANSETRON ODT 4 MG ONE (16:45)
[2019-10-19] MEDS ORDERED: BUTA1CAP PO (16:48)
--- NOTE | 2019-10-19 17:42 | NUR ---
JEWELRY SALES: PT REQUESTING JEWELRY SALES. PT C/O DR. BREWSTER NOT GIVING ADDITIONAL DILAUDID IV 2MG PRIOR TO D/C, SHE WAS GIVEN AN OPTION OF ADMISSION, BUT PATIENT WANTED TO TALK TO A HOSPITIALIST PRIOR TO SEE IF THEY WILL COMPLY WITH PAIN MEDICATION REQUEST. PER DR. BREWSTER NOT APPROPRIATE. PT STATES SHE HAS HAD THIS MEDICATION PRIOR IN THE ED FOR HER CONDITION AND GIVEN 6MG OF DILAUDID. SHE IS REQUESTING ANOTHER PHYSICAN. AFTER DISCUSSING PT REQUEST FOR ANOTHER PHYSICAN, DR. METCALF AND DR. SALOMON REFUSED AND FEEL PATIENT RECEIVED APPROPRIATE TREATMENT. DISCUSSED AT LENGTH WITH PATIENT. EMOTIONAL SUPPORT GIVEN, PT STATES SHE WILL BE D/C AND GO TO [facility] FOR [facility].
--- NOTE | 2019-10-19 17:45 | NUR ---
THIS RN PRESENT FOR PT CONVERSATION WITH NURSERY HAND CASEY ABOUT PT COMPLAINT OF NOT RECIEVING MORE DILAUDID FROM [facility]. PT STATED SHE HAS BEEN ABLE TO RECIEVE HIGHER AMOUNTS OF DIALUDID FROM PREVIOUS ER DOCS AND IS UPSET SHE CAN NOT RECIEVE THE SAME AMOUNT OF DILAUDID FROM CURRENT ERP. DR. BREWSTER OFFERED TO ADMIT PT FOR PAIN CONTROL. PT STATED SHE WOULD LIKE TO FIRST SPEAK WITH THE HOSPITALIST TO DISCUSS HER PREFERRED PAIN MEDS AND SCHEDULE OF THOSE MEDS BEFORE AGREEING TO BE ADMITTED. PT INFORMED THIS IS NOT HOW THE ADMISSION PROCESS WORKS. PT THEN OPTING NOT TO BE ADMITTED SHE STATED, "I JUST WANT TO MAKE SURE I CAN GET THE NARCOTIC PAIN MANAGEMENT I NEED FIRST". NURSERY HAND CASEY DISCUSSED PT CONCERNS WITH ORESTES BREWSTER, [place] AND LAW PT ASKED IF ANOTHER ER DOC WOULD BE WILLING TO GIVE HER MORE DILAUDID. ERP [facility]IAN[facility] AND LAW DO NOT WISH TO TAKE OVER PT CASE THEY FEEL [facility] PROVIDED SUFFICIENT TREATMENT FOR PT CURRENT ER VISIT.
[2019-10-19 18:18] VITALS: BP 118/64
== END 2019-10-19 18:21 | disposition home or self-care (01) ==
LOC: ED 15:30
DX: G89.4 Chronic pain syndrome (principal); R51 Headache
CPT/HCPCS: 96374; 96375; 99283; J1100; J1170; J1200; J1885; Q0162; 99282

== ENCOUNTER → 2019-11-03 | Outpatient (CLI) | payer OTHER ==
[~2019-11-03] VITALS: Ht 180.3 cm; Wt 88.9 kg
[~2019-11-03] MED LIST changes: +ACETAMINOPHEN 500 MG TABLET PO ONE; +BUTA1CAP PO; +DIPHENHYDRAMINE 50 MG/ML, 1ML IVPush ONE; +FIORINAL; +GABA300C10 PO; +HYDR-2995 PO; -HYDR10TA4 PO; +IMMUNE GLOBULIN 200 ML IV ONE; +ONDANSETRON 2MG/ML, 2ML IV ONE; +TRAZ-175 PO
[2019-11-03 08:35] VITALS: BP 104/75
== END | disposition home or self-care (01) ==
LOC: INFUSION 08:59
PROVIDERS: ATTEND Internal Medicine Infectious Disease
DX: D83.9 Common variable immunodeficiency, unspecified (principal); G89.4 Chronic pain syndrome; G43.909 Migraine, unspecified, not intractable, without status migrainosus; Z79.52 Long term (current) use of systemic steroids
CPT/HCPCS: 96365; 96366; 96375; J1200; J1561; J2405

== ENCOUNTER 2019-12-01 08:32 | Outpatient (CLI) | payer OTHER ==
[~2019-12-01] VITALS: Ht 180.3 cm; Wt 90.0 kg
[2019-12-01 08:30] VITALS: BP 120/80
[~2019-12-01 08:32] MED LIST changes: -ACETAMINOPHEN 500 MG TABLET PO ONE; -DIPHENHYDRAMINE 50 MG/ML, 1ML IVPush ONE; -IMMUNE GLOBULIN 200 ML IV ONE; -ONDANSETRON 2MG/ML, 2ML IV ONE
[2019-12-01] MEDS ORDERED: ONDANSETRON 2MG/ML, 2ML IV PRN (09:00)
[2019-12-01] MEDS ORDERED: DIPHENHYDRAMINE 50 MG/ML, 1ML IVPush ONE (09:00)
[2019-12-01 09:26] LABS: BASOPHILS # (AUTO) 0.04 x10^3/uL (0-0.1); BASOPHILS % (AUTO) 1 % (0-1); EOSINOPHILS # (AUTO) 0.19 x10^3/uL (0-0.4); EOSINOPHILS % (AUTO) 2 % (1-7); LYMPHOCYTES # (AUTO) 2.72 x10^3/uL (1-3.4); LYMPHOCYTES % (AUTO) 34 % (22-44); MD NO; MEAN CORPUSCULAR HGB CONC 32.9 g/dL (32.4-35.8); MEAN CORPUSCULAR VOLUME 91.3 fL (80-100); MEAN PLATELET VOLUME 8.3 fL (7.4-10.4); MONOCYTES # (AUTO) 0.54 x10^3/uL (0.2-0.8); MONOCYTES % (AUTO) 7 % (2-9); NEUTROPHILS # (AUTO) 4.49 x10^3/uL (1.8-6.8); NEUTROPHILS % (AUTO) 56 % (42-75); PLATELET COUNT 322 x10^3/uL (130-400); RED BLOOD COUNT 3.84 x10^6/uL (3.82-5.3); RED CELL DISTRIBUTION WIDTH 14.7 % (9.6-15.2)
[2019-12-01 09:30] LABS: ALANINE AMINOTRANSFERASE 79 U/L (12-78); ALBUMIN 3.6 g/dL (3.4-5.0); ANION GAP 8 mmol/L (5-15); CALCIUM 8.6 mg/dL (8.5-10.1); CHLORIDE 110 mmol/L (98-107); CREATININE 0.78 mg/dL (0.55-1.02)
[2019-12-01] MEDS ORDERED: ACETAMINOPHEN 500 MG TABLET PO ONE (09:30)
[2019-12-01] MEDS ORDERED: IMMUNE GLOBULIN IV ONE (09:30)
[2019-12-01 09:32] LABS: ALKALINE PHOSPHATASE 48 U/L (45-117); BILIRUBIN,TOTAL 0.2 mg/dL (0.2-1.0); TOTAL PROTEIN 6.8 g/dL (6.4-8.2)
== END 2019-12-01 23:59 | disposition home or self-care (01) ==
LOC: INFUSION 08:32
PROVIDERS: ATTEND Internal Medicine Infectious Disease
DX: D83.9 Common variable immunodeficiency, unspecified (principal); G43.909 Migraine, unspecified, not intractable, without status migrainosus; G89.4 Chronic pain syndrome; Z79.52 Long term (current) use of systemic steroids
CPT/HCPCS: 36415; 36591; 80053; 82784; 82787; 85025; 96365; 96366; 96375; J1200; J1561; J2405

== ENCOUNTER 2019-12-30 06:28 | Outpatient (CLI) | payer OTHER ==
[~2019-12-30] VITALS: Ht 180.3 cm; Wt 88.9 kg
[2019-12-30 08:25] VITALS: BP 115/84
[2019-12-30] MEDS ORDERED: DIPHENHYDRAMINE 50 MG/ML, 1ML IVPush PRN (08:45)
[2019-12-30] MEDS ORDERED: ONDANSETRON 2MG/ML, 2ML IVPush ONE (08:45)
[2019-12-30] MEDS ORDERED: ACETAMINOPHEN 500 MG TABLET PO ONE (08:45)
[2019-12-30] MEDS ORDERED: ACETAMINOPHEN 500 MG TABLET PO PRN (08:45)
[2019-12-30] MEDS ORDERED: DIPHENHYDRAMINE 50 MG/ML, 1ML IVPush ONE (08:46)
[2019-12-30] MEDS ORDERED: ONDANSETRON 2MG/ML, 2ML IV ONE (08:46)
[2019-12-30] MEDS ORDERED: ACETAMINOPHEN 500 MG TABLET ONE (08:48)
[2019-12-30] MEDS ORDERED: ONDANSETRON 2MG/ML, 2ML ONE (08:48)
[2019-12-30] MEDS ORDERED: DIPHENHYDRAMINE 50 MG/ML, 1ML ONE (08:48)
[2019-12-30] MEDS ORDERED: IMMUNE GLOBULIN 200 ML IV ONE (09:00)
== END 2019-12-30 23:59 | disposition home or self-care (01) ==
LOC: INFUSION 06:28
PROVIDERS: ATTEND Internal Medicine Infectious Disease
DX: D83.9 Common variable immunodeficiency, unspecified (principal); G89.4 Chronic pain syndrome; Z79.52 Long term (current) use of systemic steroids
CPT/HCPCS: 96365; 96366; 96375; J1200; J1561; J2405

== ENCOUNTER 2020-03-13 11:58 | Emergency (ER) | payer OTHER ==
[~2020-03-13] VITALS: Ht 180.3 cm; Wt 90.6 kg
[2020-03-13] MEDS ORDERED: ONDANSETRON 2MG/ML, 2ML ONE ×2 (12:47→14:32)
[2020-03-13] MEDS ORDERED: KETOROLAC 30 MG/1 ML ONE (12:47)
[2020-03-13] MEDS ORDERED: DIPHENHYDRAMINE 50 MG/ML, 1ML ONE (12:47)
[2020-03-13] MEDS ORDERED: HYDROmorphone 1 MG/ML, 1ML INJ ONE ×2 (12:47→14:45)
[2020-03-13] MEDS: HYDROmorphone 1 MG/ML, 1ML INJ IVPush PRN ×2 (13:00→14:48)
[2020-03-13] MEDS ORDERED: DIPHENHYDRAMINE 50 MG/ML, 1ML IVPush ONE (13:00)
[2020-03-13] MEDS ORDERED: ONDANSETRON 2MG/ML, 2ML IVPush ONE (13:00)
[2020-03-13] MEDS ORDERED: KETOROLAC 30 MG/1 ML IVPush ONE (13:00)
[2020-03-13] MEDS ORDERED: SODIUM CHLORIDE 0.9% 1,000ML IVBOLUS ONE (13:00)
--- NOTE | 2020-03-13 13:07 | NUR ---
port accessed, ivf and meds per mar. pt sts these dosages "don't do anything for me". as
[2020-03-13] MEDS ORDERED: SODIUM CHLORIDE FLUSH 10ML SYR IVF ONE (13:30)
--- NOTE | 2020-03-13 13:49 | NUR ---
pt asking for dexamethasone, benadryl, and dilaudid. c/o nausea and pain. willnotify umberto. as
--- NOTE | 2020-03-13 14:41 | NUR ---
pt refusing to leave, wants to speak w/ md. pt told taht she is discharged per dr shipman. pt asking to speak w/ doctor. verbalizing displeasure at not being reassessed. dr araujo in room for eval. pt to have on more dose of zofran and then be discharged. as
[2020-03-13 14:48] VITALS: BP 128/78
--- NOTE | 2020-03-13 14:50 | NUR ---
PT STS SHE CANNOT GO HOME AND TAKE HER PO MEDS THAT SHE GETS THROUGH PAIN MGMT BC SHE IS TOO NAUSEOUS AND WILL VOMIT. PT HAS NOT VOMITED SINCE SHE CAME HERE.
--- NOTE | 2020-03-13 14:56 | NUR ---
PT GIVEN DIRECTOR'S BUSINESS CARD AND DC PAPERS. HEPARIN FLUSH INTO PORT. PT GIVEN FINAL DOSE DILAUDID AND ZOFRAN. PT STS SHE WILL GO HOME. ACCOMP BY . J[facility]ON DEACCESSED W/O INCIDENT.
[2020-03-13] MEDS ORDERED: ONDANSETRON ODT 4 MG PO ONE (15:00)
== END 2020-03-13 14:59 | disposition home or self-care (01) ==
LOC: ED 12:12
DX: G89.4 Chronic pain syndrome (principal); M79.2 Neuralgia and neuritis, unspecified; R11.2 Nausea with vomiting, unspecified; G43.909 Migraine, unspecified, not intractable, without status migrainosus; Z90.89 Acquired absence of other organs; Z88.8 Allergy status to other drugs, medicaments and biological substances
CPT/HCPCS: 96361; 96374; 96375; 96376; 99284; J1170; J1200; J1885; J2405; J7030; Q0162

== ENCOUNTER 2020-05-22 02:07 | Emergency (ER) | payer OTHER ==
[~2020-05-22] VITALS: Ht 180.3 cm; Wt 88.0 kg
[2020-05-22] MEDS ORDERED: KETOROLAC 30 MG/1 ML IV ONE (02:30)
[2020-05-22] MEDS ORDERED: SODIUM CHLORIDE 0.9% 1,000ML IVBOLUS ONE (02:30)
[2020-05-22] MEDS ORDERED: DIPHENHYDRAMINE 25 MG CAPSULE PO ONE (02:30)
[2020-05-22] MEDS ORDERED: DEXAMETHASONE 4 MG TABLET PO ONE (02:30)
[2020-05-22] MEDS ORDERED: ONDANSETRON 2MG/ML, 2ML IVPush ONE (02:30)
[2020-05-22] MEDS ORDERED: SODIUM CHLORIDE FLUSH 10ML SYR IVF ONE (02:30)
[2020-05-22] MEDS ORDERED: ONDANSETRON 2MG/ML, 2ML ONE (02:48)
[2020-05-22] MEDS ORDERED: DEXAMETHASONE 4 MG TABLET ONE (02:48)
[2020-05-22] MEDS ORDERED: KETOROLAC 30 MG/1 ML ONE (02:48)
[2020-05-22] MEDS ORDERED: DIPHENHYDRAMINE 25 MG CAPSULE ONE (02:48)
[2020-05-22] MEDS ORDERED: HYDROmorphone 1 MG/ML, 1ML INJ IV ONE ×2 (03:00→03:30)
[2020-05-22] MEDS ORDERED: DIPHENHYDRAMINE 50 MG/ML, 1ML ONE (03:12)
[2020-05-22] MEDS ORDERED: DEXAMETHASONE 4 MG/ML, 5ML ONE (03:13)
[2020-05-22] MEDS ORDERED: HYDROmorphone 1 MG/ML, 1ML INJ ONE ×2 (03:13→04:04)
[2020-05-22] MEDS ORDERED: DEXAMETHASONE 4 MG/ML, 1ML IVPush ONE (03:30)
[2020-05-22] MEDS ORDERED: DIPHENHYDRAMINE 50 MG/ML, 1ML IVPush ONE (03:30)
[2020-05-22 04:06] VITALS: BP 127/82
== END 2020-05-22 05:10 | disposition home or self-care (01) ==
LOC: ED 02:37
DX: G43.909 Migraine, unspecified, not intractable, without status migrainosus (principal); R11.0 Nausea; R00.0 Tachycardia, unspecified; Z90.89 Acquired absence of other organs
CPT/HCPCS: 96361; 96374; 96375; 96376; 99284; J1100; J1170; J1200; J1885; J2405; J7030

== ENCOUNTER → 2020-08-13 | Outpatient (CLI) | payer OTHER ==
[~2020-08-13] MED LIST changes: -OXYC-432 PO; +OXYC1TAB18 PO
== END | disposition home or self-care (01) ==
LOC: LAB 10:03
PROVIDERS: ATTEND Registered Nurse
DX: Z32.01 Encounter for pregnancy test, result positive (principal)
CPT/HCPCS: 36415; 84702; 86900

== ENCOUNTER → 2020-08-15 | Outpatient (CLI) | payer OTHER | END | disposition home or self-care (01) | LOC: LAB 09:12 | PROVIDERS: ATTEND Registered Nurse | DX: Z32.01 Encounter for pregnancy test, result positive (principal) | CPT/HCPCS: 36415; 84702 ==

== ENCOUNTER 2020-09-11 02:11 | Emergency (ER) | payer OTHER ==
[~2020-09-11] VITALS: Ht 180.3 cm; Wt 83.8 kg
[~2020-09-11 02:11] MED LIST changes: +AMOX500T PO
[2020-09-11] MEDS ORDERED: ONDANSETRON 2MG/ML, 2ML ONE ×2 (02:46→03:18)
[2020-09-11] MEDS ORDERED: MORPHINE SULFATE 4 MG/ML, 1ML ONE (02:47)
[2020-09-11] MEDS ORDERED: SODIUM CHLORIDE 0.9% 1,000ML IVBOLUS ONE ×2 (03:00→04:30)
[2020-09-11] MEDS ORDERED: MORPHINE SULFATE 4 MG/ML, 1ML IVPush ONE (03:00)
[2020-09-11] MEDS ORDERED: ONDANSETRON 2MG/ML, 2ML IVPush ONE (03:00)
--- NOTE | 2020-09-11 03:28 | NUR ---
pt walked back to room 2. ambulatory, weak with cyclical vomiting until now.
--- NOTE | 2020-09-11 03:28 | NUR ---
port a cath accessed with a 20g 1inch needle to right upper chest. 5ml blood drawn and blood samples then drawn and sent to lab. pt tolerated well. 1 liter NS started and meds given. pt resting with lights down, a&ox4
[2020-09-11 03:40] LABS: BASOPHILS % (AUTO) 1 % (0-1); EOSINOPHILS % (AUTO) 2 % (1-7); LYMPHOCYTES % (AUTO) 26 % (22-44); MEAN CORPUSCULAR HEMOGLOBIN 29.7 pg (27.0-34.8); MEAN CORPUSCULAR HGB CONC 32.6 g/dL (32.4-35.8); MEAN PLATELET VOLUME 8.1 fL (7.4-10.4); MONOCYTES % (AUTO) 9 % (2-9); NEUTROPHILS % (AUTO) 63 % (42-75); PLATELET COUNT 405 x10^3/uL (130-400); RED BLOOD COUNT 4.05 x10^6/uL (3.82-5.3); RED CELL DISTRIBUTION WIDTH 14.2 % (9.6-15.2)
[2020-09-11 03:41] LABS: MD NO
--- NOTE | 2020-09-11 03:42 | NUR ---
urine collected. pt ambulatory to commode. remains in pain, and MD notified.
[2020-09-11 03:48] LABS: CHLORIDE 110 mmol/L (98-107)
[2020-09-11] MEDS ORDERED: DIPHENHYDRAMINE 50 MG/ML, 1ML ONE (03:50)
[2020-09-11 03:55] LABS: ALANINE AMINOTRANSFERASE 18 U/L (12-78); ALBUMIN 3.5 g/dL (3.4-5.0); ALKALINE PHOSPHATASE 32 U/L (45-117); ANION GAP 7 mmol/L (5-15); BILIRUBIN,TOTAL 0.4 mg/dL (0.2-1.0); CALCIUM 8.8 mg/dL (8.5-10.1); CREATININE 0.59 mg/dL (0.55-1.02); TOTAL PROTEIN 7.2 g/dL (6.4-8.2)
[2020-09-11] MEDS ORDERED: DIPHENHYDRAMINE 50 MG/ML, 1ML IVPush ONE (04:00)
[2020-09-11] MEDS ORDERED: HYDROmorphone 1 MG/ML, 1ML INJ IVPush ONE ×2 (04:00→04:30)
[2020-09-11 04:01] LABS: MICROSCOPIC INDICATED
[2020-09-11] MEDS ORDERED: HYDROmorphone 1 MG/ML, 1ML INJ ONE (04:01)
[2020-09-11] MEDS ORDERED: HYDROmorphone 2 MG/ML, 1ML ONE (04:21)
[2020-09-11 05:00] VITALS: BP 122/80
--- NOTE | 2020-09-11 05:00 | NUR ---
ivf infusing via iv pump over 1 hour. 2nd IVF bag of NS hung and pt tolerating well. states her pain has come down to a 6 but still remains with discomfort and could use some more anti nausea medicine. pt to be d/c'd after 2nd ivf bag per MD order
--- NOTE | 2020-09-11 05:19 | NUR ---
pt assesment and pt states that she feels she may need one more dose of pain meds to go home confidently. still classifies her pain as a 7. ivf infusing and has 600ml to go. made aware.
--- NOTE | 2020-09-11 06:28 | NUR ---
pt a&ox4, no distress at this time. appears more awake and lively and ambulatory. d/c instructions and prescription given to pt and she v/u. port a cath de accessed after flushed with NS 10ml, cath tip intact, no bleeding, and band aid put in place. pt tolerated well. and d/c'd.
== END 2020-09-11 06:32 | disposition home or self-care (01) ==
LOC: ED 04:39
DX: O26.891 Other specified pregnancy related conditions, first trimester (principal); R11.2 Nausea with vomiting, unspecified; Z3A.10 10 weeks gestation of pregnancy
CPT/HCPCS: 36415; 80053; 81001; 83690; 85025; 87077; 87086; 87186; 96361; 96374; 96375; 99284; J1170; J1200; J2270; J2405; J7030

== ENCOUNTER → 2020-09-21 | Outpatient (CLI) | payer OTHER | END | disposition home or self-care (01) | LOC: LAB 14:15 | PROVIDERS: ATTEND Obstetrics & Gynecology | DX: O09.529 Supervision of elderly multigravida, unspecified trimester (principal); Z3A.00 Weeks of gestation of pregnancy not specified | CPT/HCPCS: 81420 ==

== ENCOUNTER 2020-11-19 22:57 | Emergency (ER) | payer OTHER ==
[~2020-11-19] VITALS: Ht 180.3 cm; Wt 88.0 kg
[~2020-11-19 22:57] MED LIST changes: -OXYC-302 PO; -OXYC-306 PO; +OXYC1TAB14 PO; +OXYC1TAB17 PO
[2020-11-19] MEDS ORDERED: DIPHENHYDRAMINE 25 MG CAPSULE PO STA (23:31)
[2020-11-19] MEDS ORDERED: ONDANSETRON 2MG/ML, 2ML ONE (23:43)
[2020-11-19] MEDS ORDERED: HYDROmorphone 2 MG/ML, 1ML ONE (23:43)
[2020-11-19] MEDS ORDERED: DIPHENHYDRAMINE 25 MG CAPSULE ONE (23:44)
[2020-11-19] MEDS ORDERED: DIPHENHYDRAMINE 50 MG/ML, 1ML ONE (23:48)
[2020-11-20] MEDS ORDERED: HYDROmorphone 2 MG/ML, 1ML IV ONE
[2020-11-20] MEDS ORDERED: HYDROmorphone 1 MG/ML, 1ML INJ IV ONE ×2 (00:30→01:00)
[2020-11-20] MEDS ORDERED: DIPHENHYDRAMINE 50 MG/ML, 1ML IVPush ONE ×2 (00:30)
[2020-11-20] MEDS ORDERED: ONDANSETRON 2MG/ML, 2ML IVPush ONE ×2 (00:30)
[2020-11-20] MEDS ORDERED: DIPHENHYDRAMINE 50 MG/ML, 1ML ONE (00:31)
[2020-11-20] MEDS ORDERED: HYDROmorphone 1 MG/ML, 1ML INJ ONE ×2 (00:31→01:03)
[2020-11-20] MEDS ORDERED: ONDANSETRON 2MG/ML, 2ML ONE (00:41)
[2020-11-20 01:13] VITALS: BP 126/78
--- NOTE | 2020-11-20 01:14 | NUR ---
PT AMBULATED STEADILY TO DISCHARGE DESK, HAS SOMEONE WITH HER TO DRIVE HER HOME.
== END 2020-11-20 01:19 | disposition home or self-care (01) ==
LOC: ED 23:28
DX: O99.352 Diseases of the nervous system complicating pregnancy, second trimester (principal); G50.0 Trigeminal neuralgia; R51.9 Headache, unspecified; R11.0 Nausea; Z3A.20 20 weeks gestation of pregnancy
CPT/HCPCS: 96374; 96375; 96376; 99284; J1170; J1200; J2405

== ENCOUNTER → 2020-11-28 | Outpatient (CLI) | payer OTHER ==
[2020-11-28 11:10] LABS: MEAN CORPUSCULAR HEMOGLOBIN 28.8 pg (27.0-34.8); MEAN CORPUSCULAR HGB CONC 32.6 g/dL (32.4-35.8); MEAN PLATELET VOLUME 8.4 fL (7.4-10.4); PLATELET COUNT 384 x10^3/uL (130-400); RED BLOOD COUNT 3.81 x10^6/uL (3.82-5.3); RED CELL DISTRIBUTION WIDTH 14.3 % (9.6-15.2)
[2020-11-28 11:19] LABS: ALBUMIN 3.2 g/dL (3.4-5.0); C-REACTIVE PROTEIN, QUANT 0.07 mg/dL (0.02-0.49)
[2020-11-28 11:22] LABS: ALANINE AMINOTRANSFERASE 20 U/L (12-78); ALKALINE PHOSPHATASE 47 U/L (45-117); BILIRUBIN,TOTAL 0.2 mg/dL (0.2-1.0); CREATININE 0.77 mg/dL (0.55-1.02); TOTAL PROTEIN 7.1 g/dL (6.4-8.2)
[2020-11-28 11:38] LABS: ANION GAP 11 mmol/L (5-15); CHLORIDE 110 mmol/L (98-107)
[2020-11-28 12:25] LABS: HCT (SEDRATE) 33.7 % (34.6-47.8)
[2020-11-28 12:43] LABS: MD YES
[2020-11-28 12:44] LABS: <RBC MORPHOLOGY> NORMAL; BAND#(MANUAL) 0.28 x10^3/uL; BANDS%(MANUAL) 2 % (0-7); EOS#(MANUAL) 0.28 x10^3/uL (0.0-0.4); EOS% (MANUAL) 2 % (1-7); LYMPHS% (MANUAL) 18 % (22-44); METAMYELOCYTES# (MANUAL) 0.28 x10^3/uL (0-0); METAMYELOCYTES% (MANUAL) 2 % (0-1); MONOS#(MANUAL) 0.56 x10^3/uL (0.3-2.7); MONOS% (MANUAL) 4 % (2-9); SEG#(MANUAL) 10.01 x10^3/uL (1.8-6.8); SEGS% (MANUAL) 72 % (42-75)
[2020-11-28 12:45] LABS: <PLATELET ESTIMATE> ADEQUATE; <PLT MORPHOLOGY> NORMAL PLT MORPH
== END | disposition home or self-care (01) ==
LOC: LAB 10:53
PROVIDERS: ATTEND Internal Medicine Infectious Disease
DX: R79.82 Elevated C-reactive protein (CRP) (principal); D83.9 Common variable immunodeficiency, unspecified; J32.0 Chronic maxillary sinusitis; R70.0 Elevated erythrocyte sedimentation rate
CPT/HCPCS: 36415; 80053; 85025; 85651; 86140

== ENCOUNTER 2021-01-27 22:20 | Outpatient (CLI) | payer OTHER ==
[~2021-01-27] VITALS: Ht 180.3 cm; Wt 86.0 kg
[~2021-01-27 22:20] MED LIST changes: -ACYC-114 PO; +ACYC-40 PO; +LEVO50TA PO
[2021-01-27 22:52] VITALS: BP 120/67
[2021-01-27 23:50] LABS: MICROSCOPIC NOT IND
[2021-01-28] MEDS ORDERED: KETOROLAC 30 MG/1 ML IM ONE (00:30)
== END 2021-01-28 01:39 | disposition home or self-care (01) ==
LOC: LDOP 22:20
PROVIDERS: ATTEND Obstetrics & Gynecology
DX: O62.9 Abnormality of forces of labor, unspecified (principal); O26.893 Other specified pregnancy related conditions, third trimester; D80.1 Nonfamilial hypogammaglobulinemia; Z79.899 Other long term (current) drug therapy; Z3A.30 30 weeks gestation of pregnancy
CPT/HCPCS: 59025; 81003; 87086; 96372; J1885

== ENCOUNTER → 2021-02-13 | Outpatient (CLI) | payer OTHER ==
[2021-02-13 22:00] VITALS: BP 127/70
[2021-02-13 22:05] LABS: BASOPHILS % (AUTO) 0 % (0-1); EOSINOPHILS % (AUTO) 2 % (1-7); LYMPHOCYTES % (AUTO) 24 % (22-44); MEAN CORPUSCULAR HEMOGLOBIN 30.3 pg (27.0-34.8); MEAN CORPUSCULAR HGB CONC 33.9 g/dL (32.4-35.8); MEAN PLATELET VOLUME 8.9 fL (7.4-10.4); MONOCYTES % (AUTO) 9 % (2-9); NEUTROPHILS % (AUTO) 64 % (42-75); PLATELET COUNT 210 x10^3/uL (130-400); RED BLOOD COUNT 3.37 x10^6/uL (3.82-5.3); RED CELL DISTRIBUTION WIDTH 14.9 % (9.6-15.2)
[2021-02-13 22:06] LABS: MD NO
[2021-02-13 22:13] LABS: ALANINE AMINOTRANSFERASE 17 U/L (12-78); ALBUMIN 2.4 g/dL (3.4-5.0); ANION GAP 7 mmol/L (5-15); CALCIUM 8.2 mg/dL (8.5-10.1); CHLORIDE 111 mmol/L (98-107); CREATININE 0.45 mg/dL (0.55-1.02)
[2021-02-13 22:15] LABS: MICROSCOPIC INDICATED
[2021-02-13 22:16] LABS: ALKALINE PHOSPHATASE 54 U/L (45-117); BILIRUBIN,TOTAL 0.2 mg/dL (0.2-1.0); TOTAL PROTEIN 5.7 g/dL (6.4-8.2)
[2021-02-13 22:19] LABS: PROTEIN/CREATININE RATIO,URINE < 155 (0-200); TOTAL PROTEIN,URINE RANDOM < 5 mg/dL (0-12)
== END | disposition home or self-care (01) ==
LOC: LDOP 21:26
PROVIDERS: ATTEND Obstetrics & Gynecology
DX: O36.8130 Decreased fetal movements, third trimester, not applicable or unspecified (principal); Z3A.32 32 weeks gestation of pregnancy
CPT/HCPCS: 36415; 59025; 80053; 81001; 82570; 84156; 85025; 87086

== ENCOUNTER 2021-02-24 09:01 | Emergency (ER) | payer OTHER ==
[~2021-02-24] VITALS: Ht 180.3 cm; Wt 91.4 kg
[2021-02-24 09:04] VITALS: BP 108/65
== END 2021-02-24 10:52 | disposition home or self-care (01) ==
LOC: ED 09:21
DX: O26.893 Other specified pregnancy related conditions, third trimester (principal); M25.552 Pain in left hip; M54.32 Sciatica, left side; R00.0 Tachycardia, unspecified; Z90.89 Acquired absence of other organs; Z88.8 Allergy status to other drugs, medicaments and biological substances; Z3A.34 34 weeks gestation of pregnancy
CPT/HCPCS: 99283

== ENCOUNTER 2021-03-19 12:50 | Outpatient (CLI) | payer OTHER ==
[~2021-03-19] VITALS: Ht 180.3 cm; Wt 97.0 kg
[2021-03-19 13:30] VITALS: BP 126/71
== END 2021-03-19 15:12 | disposition home or self-care (01) ==
LOC: LDOP 12:50
PROVIDERS: ATTEND Obstetrics & Gynecology
DX: O09.93 Supervision of high risk pregnancy, unspecified, third trimester (principal); O26.893 Other specified pregnancy related conditions, third trimester; R10.9 Unspecified abdominal pain; Z3A.37 37 weeks gestation of pregnancy
CPT/HCPCS: 59025

== ENCOUNTER 2021-03-29 17:31 | Inpatient (IN) | payer OTHER ==
[~2021-03-29] VITALS: Ht 180.3 cm; Wt 95.5 kg
[2021-03-29] MEDS ORDERED: EPHEDRINE 50 MG/ML, 1ML IVPush PRN ×2 (18:00→21:00)
[2021-03-29] MEDS ORDERED: OXYTOCIN 30U/ 0.9% NaCL 500ML 500 ML IV ONE (18:00)
[2021-03-29] MEDS ORDERED: TERBUTALINE 1 MG/ML, 1ML IVPush PRN (18:00)
[2021-03-29] MEDS ORDERED: CEFAZOLIN 2,000 MG in SODIUM CHLORIDE 0.9% 50 ML IV SCH (18:00)
[2021-03-29] MEDS ORDERED: FENTANYL/BUPIV./NS/PF 250 ML EPIDCONT SCH ×2 (18:00→21:00)
[2021-03-29] MEDS ORDERED: LACTATED RINGERS 1,000 ML IV SCH ×2 (18:00→21:00)
[2021-03-29] MEDS ORDERED: FENTANYL PF 100 MCG/2ML IV PRN (18:00)
[2021-03-29] MEDS ORDERED: TERBUTALINE 1 MG/ML, 1ML SQ PRN (18:00)
[2021-03-29] MEDS: LACTATED RINGERS 1,000 ML IVBOLUS PRN ×2 (18:15→19:29)
[2021-03-29 18:22] VITALS: BP 135/88
[2021-03-29] MEDS ORDERED: NEWBORN KIT ONE (18:30)
[2021-03-29 18:40] LABS: BASOPHILS % (AUTO) 0 % (0-1); EOSINOPHILS % (AUTO) 0 % (1-7); LYMPHOCYTES % (AUTO) 15 % (22-44); MEAN CORPUSCULAR HEMOGLOBIN 28.4 pg (27.0-34.8); MEAN CORPUSCULAR HGB CONC 32.3 g/dL (32.4-35.8); MEAN PLATELET VOLUME 11.8 fL (7.4-10.4); MONOCYTES % (AUTO) 8 % (2-9); NEUTROPHILS % (AUTO) 76 % (42-75); PLATELET COUNT 222 x10^3/uL (130-400); RED BLOOD COUNT 4.06 x10^6/uL (3.82-5.3); RED CELL DISTRIBUTION WIDTH 14.5 % (9.6-15.2)
[2021-03-29] MEDS: FENTANYL PF 100 MCG/2ML IVPush PRN ×2 (18:46→19:47)
[2021-03-29] MEDS ORDERED: LIDOCAINE 1%, 20ML ONE (19:07)
[2021-03-29] MEDS ORDERED: MISOPROSTOL 200 MCG TABLET ONE (19:08)
[2021-03-29] MEDS ORDERED: CEFAZOLIN PMX 2GM/50ML 50 ML IVPB ONE (19:36)
[2021-03-29] MEDS ORDERED: LIDOCAINE/PF 1.5% EPI 1:200K, 10 ML ONE (20:08)
[2021-03-29] MEDS ORDERED: LACTATED RINGERS 1,000 ML IVBOLUS PRN (21:00)
[2021-03-29] MEDS ORDERED: NALOXONE 0.4 MG/ML, 1ML IVPush PRN (21:00)
[2021-03-29] MEDS ORDERED: OXYTOCIN 30U/ 0.9% NaCL 500ML 500 ML IV PRN (21:30)
[2021-03-30] MEDS ORDERED: RHOGAM FROM BLOOD BANK 1 NOTE EA IM/IV ONE (00:30)
[2021-03-30] MEDS ORDERED: ACETAMINOPHEN 325 MG TABLET PO PRN ×2 (00:30)
[2021-03-30] MEDS ORDERED: CEFAZOLIN PMX 2GM/50ML 50 ML IVPB ONE (00:30)
[2021-03-30] MEDS ORDERED: MISOPROSTOL 200 MCG TABLET PR PRN (00:30)
[2021-03-30] MEDS ORDERED: MAGNESIUM HYDROXIDE 8%, 30ML UDC PO PRN (00:30)
[2021-03-30] MEDS ORDERED: MEASLES,MUMPS&RUBELLA VACC/PF 0.5 ML SQ-VACC PRN (00:30)
[2021-03-30] MEDS: OXYTOCIN 30U/ 0.9% NaCL 500ML 500 ML IV SCH ×3 (01:36→20:30)
[2021-03-30 03:00] VITALS: BP 116/57
[2021-03-30] MEDS: OXYcodone/APAP 5/325MG TABLET PO PRN ×7 (03:00→20:55)
[2021-03-30] MEDS: IBUPROFEN 600 MG TABLET PO PRN ×3 (03:00→20:55)
[2021-03-30] MEDS: LEVOTHYROXINE 25 MCG TABLET PO SCH (06:00)
[2021-03-30] MEDS ORDERED: LEVOTHYROXINE 25 MCG TABLET PO SCH (08:00)
[2021-03-30] MEDS: PRENATAL VIT/IRON/FA 1 EACH TABLET PO SCH (08:05)
[2021-03-30] MEDS: HYDROXYCHLOROQUINE 200 MG TABLET PO SCH (08:06)
[2021-03-30 08:38] LABS: BASOPHILS % (AUTO) 1 % (0-1); EOSINOPHILS % (AUTO) 1 % (1-7); LYMPHOCYTES % (AUTO) 17 % (22-44); MEAN CORPUSCULAR HEMOGLOBIN 28.7 pg (27.0-34.8); MEAN PLATELET VOLUME 11.3 fL (7.4-10.4); MONOCYTES % (AUTO) 8 % (2-9); NEUTROPHILS % (AUTO) 74 % (42-75); PLATELET COUNT 157 x10^3/uL (130-400)
[2021-03-30] MEDS: DULOXETINE 30 MG CAPSULE.DR PO SCH (17:00)
[2021-03-30 20:30] VITALS: BP 118/83
[2021-03-30] MEDS: DOCUSATE 100 MG CAPSULE PO PRN (20:55)
[2021-03-31 00:45] VITALS: BP 113/76
[2021-03-31] MEDS: OXYcodone/APAP 5/325MG TABLET PO PRN ×5 (02:26→20:48)
[2021-03-31] MEDS: IBUPROFEN 600 MG TABLET PO PRN ×3 (03:39→16:45)
[2021-03-31] MEDS: LEVOTHYROXINE 25 MCG TABLET PO SCH (06:03)
[2021-03-31] MEDS: OXYTOCIN 30U/ 0.9% NaCL 500ML 500 ML IV SCH ×2 (06:30→16:30)
[2021-03-31 08:00] VITALS: BP 125/82
[2021-03-31] MEDS: HYDROXYCHLOROQUINE 200 MG TABLET PO SCH (08:20)
[2021-03-31] MEDS: DOCUSATE 100 MG CAPSULE PO PRN ×2 (08:30→20:49)
[2021-03-31] MEDS: PRENATAL VIT/IRON/FA 1 EACH TABLET PO SCH (09:00)
[2021-03-31] MEDS: DULOXETINE 30 MG CAPSULE.DR PO SCH (16:45)
[2021-03-31 20:30] VITALS: BP 130/86
[2021-04-01] MEDS: IBUPROFEN 600 MG TABLET PO PRN ×2 (01:24→07:56)
[2021-04-01] MEDS: OXYcodone/APAP 5/325MG TABLET PO PRN ×3 (01:26→10:27)
[2021-04-01] MEDS: OXYTOCIN 30U/ 0.9% NaCL 500ML 500 ML IV SCH (02:30)
[2021-04-01] MEDS: LEVOTHYROXINE 25 MCG TABLET PO SCH (05:51)
[2021-04-01 07:50] VITALS: BP 129/84
[2021-04-01] MEDS: PRENATAL VIT/IRON/FA 1 EACH TABLET PO SCH (07:54)
[2021-04-01] MEDS: HYDROXYCHLOROQUINE 200 MG TABLET PO SCH (07:54)
[2021-04-01] MEDS: DOCUSATE 100 MG CAPSULE PO PRN (07:55)
[2021-04-01] MEDS ORDERED: IBUP-1222 PO ×2 (11:04→11:06)
[2021-04-01] MEDS ORDERED: SENN-92 PO ×2 (11:10→11:13)
== END 2021-04-01 11:40 | disposition home or self-care (01) | DRG 806 ==
LOC: LDOP 17:31 → LDIP 18:34 → 2NE 03-30 05:15 → 2NW 03-30 19:29
PROVIDERS: ADMIT Obstetrics & Gynecology; ATTEND Obstetrics & Gynecology
PROC: 10E0XZZ Delivery of Products of Conception, External Approach (ICD-10-PCS; principal; 2021-03-29)
PROC: 10907ZC Drainage of Amniotic Fluid, Therapeutic from Products of Conception, Via Natural or Artificial Opening (ICD-10-PCS; 2021-03-29)
PROC: 0HQ9XZZ Repair Perineum Skin, External Approach (ICD-10-PCS; 2021-03-29)
PROC: 3E0R3BZ Introduction of Anesthetic Agent into Spinal Canal, Percutaneous Approach (ICD-10-PCS; 2021-03-29)
PROC: 00HU33Z Insertion of Infusion Device into Spinal Canal, Percutaneous Approach (ICD-10-PCS; 2021-03-29)
PROC: 3E0234Z Introduction of Serum, Toxoid and Vaccine into Muscle, Percutaneous Approach (ICD-10-PCS; 2021-03-30)
DX: O69.1XX0 Labor and delivery complicated by cord around neck, with compression, not applicable or unspecified (principal); O99.12 Other diseases of the blood and blood-forming organs and certain disorders involving the immune mechanism complicating childbirth; Z37.0 Single live birth; O99.354 Diseases of the nervous system complicating childbirth; O70.0 First degree perineal laceration during delivery; G70.00 Myasthenia gravis without (acute) exacerbation; E03.9 Hypothyroidism, unspecified; G43.909 Migraine, unspecified, not intractable, without status migrainosus; O99.284 Endocrine, nutritional and metabolic diseases complicating childbirth; Z3A.38 38 weeks gestation of pregnancy; Z23 Encounter for immunization
CPT/HCPCS: 36415; 85025; 86592; 86850; 86900; G0378; J0690; J3010; J7512; J2590; J7120